=== PATIENT | male | born 1940 | race Caucasian/White ===

== ENCOUNTER 2024-02-23 00:20 | Observation (INO) ==
[2024-02-23] MEDS: SODIUM CHLORIDE 0.9% 1,000 ML IV ONE ×2 (00:33→03:33)
--- NOTE | 2024-02-23 00:34 | Emergency Department Note ---
Impression & Plan Chest pain, Acute hyponatremia, Leukocytosis ED Provider Note NAME: AISSATOU SOTO AGE: 83 SEX: M : 1940 ARRIVES VIA: Ambulance INFORMANT: Patient ED PROVIDER(S): Chano Perez DO CHIEF COMPLAINT: Chest pain HPI: Patient is an 83-year-old male who presents to the ER for precordial chest pain that radiates to the right arm. Started about an hour to an hour and a half ago. He was given aspirin and nitro prior to arrival by EMS and the pain has improved. No longer has any arm pain. Does have a history of diabetes and hypertension. No dysuria, urgency, or frequency. No other exacerbating or remitting factors. ADDITIONAL HISTORY OBTAINED: Per HPI Chronic Medical/Social Conditions Affecting Care: Per HPI PAST MEDICAL HISTORY:See Below PAST SURGICAL HISTORY:See Below FAMILY HISTORY:See Below SOCIAL HISTORY:See Below HOME MEDICATIONS:See Below ALLERGIES:See Below VITALS:See Below PHYSICAL EXAMINATION: GENERAL: Sitting up in bed, alert, well appearing, well nourished, no distress, non-toxic EYE EXAM: normal conjunctiva. OROPHARYNX: no exudate, no erythema, lips, buccal mucosa, and tongue normal and mucous membranes are moist NECK: supple, no nuchal rigidity, no adenopathy, non-tender LUNGS: Clear to auscultation. Normal chest wall mechanics HEART: no murmurs, S1 normal and S2 normal ABDOMEN: abdomen soft, non-tender, normo-active bowel sounds, no masses, no rebound or guarding. BACK: Back is symmetrical on inspection and there is no deformity, no midline tenderness, no CVA tenderness. SKIN: no rashes and no bruising UPPER EXTREMITIES: upper extremities are grossly normal. LOWER EXTREMITIES: No pitting edema. NEURO EXAM: Normal sensorium, cranial nerves II-XII grossly intact, normal speech, no gross weakness of arms, no gross weakness of legs. MEDICAL DECISION MAKING: Patient is an 83-year-old male who to the ER for the above-stated complaint. IV was established and blood work is obtained. Labs show mild leukocytosis of 11,000. No significant anemia. BMP with mild hyponatremia 131. Glucose was mildly elevated. LFTs bilirubin was unremarkable. Lipase was normal. EKG was nondiagnostic. CT of the chest shows atelectasis versus consolidation. Pulse ox ranged from 89 to 92%. He was given IV antibiotics. Updated bedside. No upper respiratory symptoms. Did discuss case with the hospitalist for further evaluation management treatment. Consults/Care Managements Discussions: Per MDM Triage Nursing notes reviewed. Limited review of prior medical records performed Vital Signs: reviewed and remarkable for hypoxic and tachy Differential diagnosis: Cardiac ischemia, aortic dissection, pulmonary embolism, pneumothorax, pneumonia, pericarditis, myocarditis, esophageal rupture, GERD, cholecystitis, pancreatitis, musculoskeletal, as well as other pathologies. ER treatment provided: See below Diagnostics interpreted by me include EKG and cardiac monitoring as listed below: -Cardiac Monitoring: An order was placed for continuous cardiac monitoring. The monitor shows a rate of 110 with sinus rhythm. -ECG: Sinus tachycardia rate of 117 Normal axis No PVCs Nonspecific ST wave changes in the lateral and inferior leads QTc 426 -Laboratory studies:Interpreted by me as stated above in MDM and shown below. Imaging studies: Xrays: As interpreted by me: None CTs show: CT angio the chest per my preliminary interpretation showed opacities at the bases bilaterally CT angio the chest per radiology shows no PEs and Consolidation versus atelectasis Procedures: None Critical Care: None Past Med/Surg History Problem List (Updated 02/23/24 @ 02:53 by Chano Perez DO) Leukocytosis (Acute) Acute hyponatremia (Acute) Chest pain (Acute) Social History Smoking Status: Current some day smoker Tobacco Type: Pipe Preferred Language: Belarusian Feels Safe at Home: Yes Allergies Allergies Allergy/AdvReac Type Severity Reaction Status Date / Time Penicillins Allergy Mild Verified 04/15/17 13:03 Home Meds Home Medications Medication Instructions Recorded Confirmed hydrochlorothiazide 12.5 mg tablet 12.5 mg PO DAILY 02/23/24 02/23/24 losartan 25 mg tablet 25 mg PO DAILY 02/23/24 02/23/24 metformin 500 mg tablet,extended 500 mg PO DAILY 02/23/24 02/23/24 release 24 hr omeprazole 40 mg capsule,delayed 40 mg PO DAILY 02/23/24 02/23/24 release Results & Data (ED) Vital Signs Vital Signs - 24 hr 02/23/24 00:09 02/23/24 00:26 02/23/24 00:27 Temperature Temperature Source Pulse Rate 97 H 117 H Pulse Rate [Apical] Pulse Rate from SpO2 Sensor 117 H Pulse Rhythm Pulse Rhythm [Apical] Pulse Strength Pulse Strength [Apical] Respiratory Rate 28 H Respiratory Effort / Characteristics Respiratory Depth Respiratory Pattern Blood Pressure 154/96 H Blood Pressure [Right Arm] Blood Pressure Mean 105 Blood Pressure Mean [Right Arm] Blood Pressure Position Blood Pressure Position [Right Arm] Pulse Oximetry 90 Oxygen Delivery Method Oxygen Flow Rate Sepsis Recent Fever Within 48 Hours Sepsis New/Unexplained Change in Mental Status Sepsis Action Taken by Nursing 02/23/24 00:28 02/23/24 00:28 02/23/24 00:30 Temperature 36.5 C Temperature Source Oral Pulse Rate 116 H Pulse Rate [Apical] 118 H Pulse Rate from SpO2 Sensor Pulse Rhythm Regular Pulse Rhythm [Apical] Regular Pulse Strength Pulse Strength [Apical] Normal Respiratory Rate 20 20 Respiratory Effort / Characteristics Non-Labored Spontaneous Respiratory Depth Normal Respiratory Pattern Regular Blood Pressure 134/95 Blood Pressure [Right Arm] 154/96 H Blood Pressure Mean 105 Blood Pressure Mean [Right Arm] 115 Blood Pressure Position Blood Pressure Position [Right Arm] Lying Pulse Oximetry 90 90 Oxygen Delivery Method Room Air Room Air Oxygen Flow Rate 0 Sepsis Recent Fever Within 48 Hours Sepsis New/Unexplained Change in Mental Status Sepsis Action Taken by Nursing 02/23/24 00:30 02/23/24 00:39 02/23/24 01:00 Temperature Temperature Source Pulse Rate 113 H Pulse Rate [Apical] Pulse Rate from SpO2 Sensor 109 H Pulse Rhythm Pulse Rhythm [Apical] Pulse Strength Pulse Strength [Apical] Respiratory Rate 26 H Respiratory Effort / Characteristics Respiratory Depth Respiratory Pattern Blood Pressure 134/95 Blood Pressure [Right Arm] Blood Pressure Mean 105 Blood Pressure Mean [Right Arm] Blood Pressure Position Blood Pressure Position [Right Arm] Pulse Oximetry 91 95 Oxygen Delivery Method Room Air Oxygen Flow Rate 0 Sepsis Recent Fever Within 48 Hours Sepsis New/Unexplained Change in Mental Status Sepsis Action Taken by Nursing 02/23/24 01:00 02/23/24 01:00 02/23/24 01:57 Temperature 36.5 C Temperature Source Oral Pulse Rate 108 H Pulse Rate [Apical] Pulse Rate from SpO2 Sensor Pulse Rhythm Regular Pulse Rhythm [Apical] Pulse Strength Normal Pulse Strength [Apical] Respiratory Rate 20 Respiratory Effort / Characteristics Non-Labored Spontaneous Respiratory Depth Normal Respiratory Pattern Regular Blood Pressure 137/84 137/84 137/84 Blood Pressure [Right Arm] Blood Pressure Mean 99 99 101 Blood Pressure Mean [Right Arm] Blood Pressure Position Lying Blood Pressure Position [Right Arm] Pulse Oximetry 95 Oxygen Delivery Method Room Air Oxygen Flow Rate Sepsis Recent Fever Within 48 Hours No Sepsis New/Unexplained Change in Mental Status No Sepsis Action Taken by Nursing No Action Required 02/23/24 02:36 02/23/24 03:06 02/23/24 03:46 Temperature Temperature Source Pulse Rate 105 H 100 H Pulse Rate [Apical] 104 H Pulse Rate from SpO2 Sensor 103 H 100 H Pulse Rhythm Pulse Rhythm [Apical] Regular Pulse Strength Pulse Strength [Apical] Normal Respiratory Rate 22 14 20 Respiratory Effort / Characteristics Non-Labored Spontaneous Respiratory Depth Normal Respiratory Pattern Regular Blood Pressure 175/104 H 155/92 H Blood Pressure [Right Arm] 157/110 H Blood Pressure Mean 127 113 Blood Pressure Mean [Right Arm] 125 Blood Pressure Position Blood Pressure Position [Right Arm] Pulse Oximetry 95 96 93 Oxygen Delivery Method Room Air Oxygen Flow Rate Sepsis Recent Fever Within 48 Hours Sepsis New/Unexplained Change in Mental Status Sepsis Action Taken by Nursing Laboratory Data 02/23/24 02:05 02/23/24 02:05 Lab Results 02/23/24 02/23/24 Range/Units 00:54 02:05 WBC 11.20 H (4.8-10.8) K/ul RBC 4.76 (4.70-6.10) M/uL Hgb 14.4 (14.0-18.0) g/dl POC Hgb 15.6 (14.0-18.0) g/dl Hct 41.8 L (42.0-52.0) % POC Hct 46 (42-52) % MCV 87.8 (80.0-100.0) fL MCH 30.3 (25.0-34.0) pg MCHC 34.4 (32.0-36.0) g/dL RDW Std Deviation 40.4 (36.4-46.3) fL RDW Coeff of Jose 12.5 (11.5-14.5) % Plt Count 233 (130-400) K/uL MPV 9.9 (9.4-12.4) fL Immature Gran % (Auto) 0.4 % Neut % (Auto) 82.9 % Lymph % (Auto) 10.3 % [place] % (Auto) 5.1 % Eos % (Auto) 0.7 % Baso % (Auto) 0.6 % Neut # (Auto) 9.28 H (1.40-6.50) K/uL Lymph # (Auto) 1.15 L (1.20-3.40) K/uL [place] # (Auto) 0.57 (0.11-0.59) K/uL Eos # (Auto) 0.08 (0.00-0.50) K/uL Baso # (Auto) 0.07 (0.00-0.20) K/uL Immature Gran # (Auto) 0.05 (0.01-0.20) K/uL APTT 24 (21-31) Seconds PTT Ratio 0.9 POC Sodium 134 L (135-144) mmol/L Sodium 131 L (136-145) mmol/L POC Potassium 4.1 (3.3-5.0) mmol/L Potassium 4.2 (3.5-5.1) mmol/L POC Chloride 100 L (101-112) mmol/L Chloride 100 (98-107) mmol/L Carbon Dioxide 23 (21-32) mmol/L POC Total CO2 22 L (24-31) mmol/L Anion Gap 8 (3-11) POC Anion Gap 16.0 (16-25) mmol/L POC BUN 10 (7-18) mg/dl BUN 11 (6-23) mg/dl Creatinine 0.89 (0.6-1.4) mg/dl POC Creatinine 0.9 (0.6-1.3) mg/dl Est Cr Clr Drug Dosing 67.2 ml/min eGFR 86.09 BUN/Creatinine Ratio 12.4 (10-20) Glucose 152 H (70-99(Fasting)) mg/dl POC Glucose (other) 162 H (70-99) mg/dl Calcium 9.2 (8.6-10.3) mg/dl POC Ioniz Calcium Natan 1.27 (1.12-1.32) mmol/l Magnesium 1.9 (1.7-2.4) mg/dl Total Bilirubin 0.4 (0.2-1.0) mg/dl AST 14 (13-39) U/L ALT 14 (7-52) U/L Alkaline Phosphatase 55 (34-104) U/L Troponin I High Sens 7.1 (0-20) pg/ml Total Protein 6.1 (6.0-8.3) gm/dl Albumin 3.7 (3.4-5.0) gm/dl Globulin 2.4 L (2.5-4.0) gm/dl Albumin/Globulin Ratio 1.5 (0.9-2) Lipase 29 (11-82) U/L Administered Medications Azithromycin 500 mg/ Dextrose 255 mls @ 125 mls/hr IV NOW ONE Stop: 02/23/24 04:50 Last Admin: 02/23/24 03:33 Dose: 125 mls/hr Documented By: GANESH Sodium Chloride (Nss) 1,000 mls @ 80 mls/hr IV .[id number] ONE Stop: 02/23/24 15:23 Last Admin: 02/23/24 03:33 Dose: 80 mls/hr Documented By: GANESH Discontinued Medications Al Hydrox/Mg Hydrox/Simethicone (Aluminum/Magnesium Susp 30 Ml Udc) 30 ml PO NOW STA Stop: 02/23/24 02:48 Last Admin: 02/23/24 02:59 Dose: 30 ml Documented By: GANESH Sodium Chloride (Nss) 1,000 mls @ 999 mls/hr IV .[id number] ONE Stop: 02/23/24 01:32 Last Infusion: 02/23/24 02:45 Dose: Infused Documented By: Admin: 02/23/24 00:33 Dose: 999 mls/hr Documented By: GANESH Sodium Chloride (Nss) 500 mls @ 999 mls/hr IV .Q31M ONE Stop: 02/23/24 02:32 Last Admin: 02/23/24 02:45 Dose: 999 mls/hr Documented By: GANESH Ceftriaxone Sodium (Rocephin) 2,000 mg in 50 mls @ 100 mls/hr IV NOW STA Stop: 02/23/24 03:17 Last Admin: 02/23/24 02:59 Dose: 100 mls/hr Documented By: GANESH Ioversol (Optiray 320 125ml) 125 ml IV ONCE ONE Stop: 02/23/24 01:33 Last Admin: 02/23/24 01:32 Dose: 118 ml Documented By: LOU Morphine Sulfate (Morphine Sulfate 4 Mg/Ml 1 Ml Carp\Vial) 4 mg IV NOW STA Stop: 02/23/24 02:19 Last Admin: 02/23/24 02:44 Dose: 4 mg Documented By: GANESH Nitroglycerin (Nitroglycerin Sl 0.4 Mg/Tab Tab) 0.4 mg SL NOW STA Stop: 02/23/24 03:28 Last Admin: 02/23/24 03:44 Dose: 0.4 mg Documented By: GANESH Ondansetron HCl (Ondansetron Inj 2 Mg/Ml 2 Ml Vial) 4 mg IV NOW STA Stop: 02/23/24 02:51 Last Admin: 02/23/24 02:59 Dose: 4 mg Documented By: GANESH Imaging Data Radiologist's Impression: Chest CTA 02/23/24 00:34 Exam(s): CTA CHEST IV Amt: 118 ML OPTIRAY 320 EXAM: CT Angiography Chest With Intravenous Contrast CLINICAL HISTORY: Reason for exam: PE. TECHNIQUE: Axial computed tomographic angiography images of the chest with intravenous contrast. Automated exposure control was utilized for the study. A dose lowering technique was utilized adhering to the principles of ALARA. MIP reconstructed images were created and reviewed. COMPARISON: No relevant prior studies available. FINDINGS: Pulmonary arteries: Unremarkable. No pulmonary embolism. Aorta: No acute findings. No thoracic aortic aneurysm. Lungs: There are dependent lower lobe groundglass opacities suggestive of probable atelectasis. No pleural fluid or pneumothorax identified. There is a minimal mosaic attenuation of the upper lobes suggestive of mild air trapping. Pleural space: See above. Heart: Unremarkable. No cardiomegaly. No significant pericardial effusion. No evidence of RV dysfunction. Mediastinum: There is a small to moderate hiatal hernia. There is a small amount of distal esophageal fluid consistent with gastroesophageal reflux. Bones/joints: No acute fracture. No dislocation. Soft tissues: Unremarkable. Lymph nodes: Unremarkable. No pulmonary mass or suspicious nodules are noted. No significant lymphadenopathy identified. IMPRESSION: 1. No pulmonary artery embolism or thoracic aortic aneurysm identified. 2. There is mild dependent lower lobe groundglass compressive atelectasis/consolidation. There is suggestion of mild upper lobe air trapping. Clinical correlation and follow-up recommended. 3. Small to moderate hiatal hernia and distal esophageal fluid consistent with gastroesophageal reflux. Electronically signed by: Jackson Chacon MD 02/23/24 02:16 AM Discharge Plan Visit Data Chief Complaint: Chest Pain Stated Complaint: CHEST PAIN ED Provider: Chano Perez Discharge Problem: Chest pain, Acute hyponatremia, Leukocytosis Forms Stand Alone Forms: [facility] [employer] Prescriptions Prescriptions: No Action omeprazole 40 mg capsule,delayed release(DR/EC) 40 mg PO DAILY losartan 25 mg tablet 25 mg PO DAILY metformin 500 mg tablet extended release 24 hr 500 mg PO DAILY hydrochlorothiazide 12.5 mg tablet 12.5 mg PO DAILY Referrals Referrals: Suleiman Lucero MD [Hospitalist] - Discharge Problem: Chest pain Qualifiers: Chest pain type: unspecified Qualified Code(s): R07.9 - Chest pain, unspecified Leukocytosis Qualifiers: Leukocytosis type: unspecified Qualified Code(s): D72.829 - Elevated white blood cell count, unspecified
[2024-02-23 01:07] LABS: iSTAT Creatinine 0.9 mg/dl (0.6-1.3); iSTAT Hemoglobin 15.6 g/dl (14.0-18.0); iSTAT Ionized Calcium 1.27 mmol/l (1.12-1.32); iSTAT Potassium 4.1 mmol/L (3.3-5.0)
[2024-02-23] MEDS: OPTIRAY 320 125ml IV ONE (01:32)
--- NOTE | 2024-02-23 02:17 | CT Scan Report ---
Exam(s): CTA CHEST IV Amt: 118 ML OPTIRAY 320 EXAM: CT Angiography Chest With Intravenous Contrast CLINICAL HISTORY: Reason for exam: PE. TECHNIQUE: Axial computed tomographic angiography images of the chest with intravenous contrast. Automated exposure control was utilized for the study. A dose lowering technique was utilized adhering to the principles of ALARA. MIP reconstructed images were created and reviewed. COMPARISON: No relevant prior studies available. FINDINGS: Pulmonary arteries: Unremarkable. No pulmonary embolism. Aorta: No acute findings. No thoracic aortic aneurysm. Lungs: There are dependent lower lobe groundglass opacities suggestive of probable atelectasis. No pleural fluid or pneumothorax identified. There is a minimal mosaic attenuation of the upper lobes suggestive of mild air trapping. Pleural space: See above. Heart: Unremarkable. No cardiomegaly. No significant pericardial effusion. No evidence of RV dysfunction. Mediastinum: There is a small to moderate hiatal hernia. There is a small amount of distal esophageal fluid consistent with gastroesophageal reflux. Bones/joints: No acute fracture. No dislocation. Soft tissues: Unremarkable. Lymph nodes: Unremarkable. No pulmonary mass or suspicious nodules are noted. No significant lymphadenopathy identified. IMPRESSION: 1. No pulmonary artery embolism or thoracic aortic aneurysm identified. 2. There is mild dependent lower lobe groundglass compressive atelectasis/consolidation. There is suggestion of mild upper lobe air trapping. Clinical correlation and follow-up recommended. 3. Small to moderate hiatal hernia and distal esophageal fluid consistent with gastroesophageal reflux. Electronically signed by: Jackson Chacon MD 02/23/24 02:16 AM
[2024-02-23 02:27] LABS: Basophils # (auto) 0.07 K/uL (0.00-0.20); Basophils % (auto) 0.6 %; Eosinophils # (auto) 0.08 K/uL (0.00-0.50); Eosinophils % (auto) 0.7 %; Hematocrit (blood only) 41.8 % (42.0-52.0); Hemoglobin 14.4 g/dl (14.0-18.0); Immature Granulocytes # (auto) 0.05 K/uL (0.01-0.20); Immature Granulocytes % (auto) 0.4 %; Lymphocytes # (auto) 1.15 K/uL (1.20-3.40); Lymphocytes % (auto) 10.3 %; Mean Corpuscular Hemoglobin 30.3 pg (25.0-34.0); Mean Corpuscular Hgb Conc 34.4 g/dL (32.0-36.0); Mean Corpuscular Volume 87.8 fL (80.0-100.0); Mean Platelet Volume 9.9 fL (9.4-12.4); Monocytes # (auto) 0.57 K/uL (0.11-0.59); Monocytes % (auto) 5.1 %; Neutrophils # (auto) 9.28 K/uL (1.40-6.50); Neutrophils % (auto) 82.9 %; Platelet Count 233 K/uL (130-400); RDW Coefficient of Variation 12.5 % (11.5-14.5); RDW Standard Deviation 40.4 fL (36.4-46.3); Red Blood Count 4.76 M/uL (4.70-6.10)
[2024-02-23 02:41] LABS: Albumin Globulin Ratio 1.5 (0.9-2); Albumin Level 3.7 gm/dl (3.4-5.0); BUN Creatinine Ratio 12.4 (10-20); Bilirubin,Total 0.4 mg/dl (0.2-1.0); Calcium 9.2 mg/dl (8.6-10.3); Creatinine Clr Calc Pharmacy 67.2 ml/min; Globulin 2.4 gm/dl (2.5-4.0); Potassium 4.2 mmol/L (3.5-5.1); Total Protein 6.1 gm/dl (6.0-8.3)
[2024-02-23] MEDS: MoRPHine SULFATE 4 MG/ML 1 ML CARP\\VIAL IV STA (02:44)
[2024-02-23] MEDS: SODIUM CHLORIDE 0.9% 500 ML IV ONE (02:45)
[2024-02-23 02:48] LABS: Troponin I High Sensitivity 7.1 pg/ml (0-20)
[2024-02-23] MEDS: ALUMINUM/MAGNESIUM SUSP 30 ML UDC PO STA (02:59)
[2024-02-23] MEDS: ONDANSETRON INJ 2 MG/ML 2 ML VIAL IV STA (02:59)
[2024-02-23] MEDS: cefTRIAXone SODIUM 2,000 MG/50 ML BAG IV STA (02:59)
[2024-02-23 03:05] LABS: Partial Thromboplastin Ratio 0.9; Partial Thromboplastin Time 24 Seconds (21-31)
--- NOTE | 2024-02-23 03:29 | History & Physical Report ---
Date of Service February 23, 2024 Assessment & Plan (1) Chest pain: Plan: Somewhat atypical No relief with nitroglycerin given at the ER Possibly from uncontrolled hypertension Hyponatremia secondary to home diuretic Rx GERD, stable on home PPI DM2 on oral medication, well-controlled as of last outpatient hemoglobin A1c of 6.8 2020 anxiety/mood disorder, at baseline past tobacco abuse OBS PCU Baseline TTE Titrate home losartan Hold HCTZ ISS BG goal 1 10-1 40, carb count coverage, update hemoglobin A1c DVT prophylaxis. Lovenox subcu Full code Patient daughter requesting updates providers. Ms. Cherelle Pichardo, contact #[phone]. Text document was generated using [email or web address] voice recognition software. It may contain grammatical or spelling errors. Kindly contact undersigned for clarification of any documentation item in question. History of Present Illness Chief Complaint: Chest pain Primary Care Provider: Enrique Aleman MD History obtained from patient, family, and records. Medical history significant for hypertension, GERD, DM2 on oral medications, anxiety/mood disorder, migraine, past tobacco abuse. Last confinement 2011 for TIA symptoms attributed to migraine. Yesterday, patient noted substernal tightness with some radiation to the right arm. No unusual cough symptoms other than congestion symptoms from a few weeks ago. No unusual headache symptoms. No SOB. Different from reflux as per patient. Patient's family wondering about tick bites. Patient brought to ER by EMS. SBP 170s upon arrival at the ER. No relief with nitroglycerin administration at the ER. Medical History as above Surgical History : None Family History : Lung cancer, breast cancer Personal/Social history : Past tobacco abuse, no EtOH intake, retired from concrete work Allergies Allergy/AdvReac Type Severity Reaction Status Date / Time Penicillins Allergy Mild Verified 04/15/17 13:03 Home Medications Medication Instructions Recorded Confirmed Type hydrochlorothiazide 12.5 mg tablet 12.5 mg PO DAILY 02/23/24 02/23/24 History losartan 25 mg tablet 25 mg PO DAILY 02/23/24 02/23/24 History metformin 500 mg tablet,extended 500 mg PO DAILY 02/23/24 02/23/24 History release 24 hr omeprazole 40 mg capsule,delayed 40 mg PO DAILY 02/23/24 02/23/24 History release Past Med/Surg History Problem List (Updated 02/23/24 @ 02:53 by Chano Perez DO) Leukocytosis (Acute) Acute hyponatremia (Acute) Chest pain (Acute) Social History Smoking Status: Current some day smoker Tobacco Type: Pipe Preferred Language: Norwegian Feels Safe at Home: Yes Review of Systems Review of Systems: As per HPI, all other systems reviewed and negative Physical Exam Physical Exam: GENERAL: Slightly uncomfortable, hard of hearing, no respiratory distress SKIN: Normal color, warm HEENT: [place] palpebral conjunctivae, no ptosis, dry buccal mucosa NECK : Supple, no tenderness CHEST : CTA, no tenderness HEART : Tachycardic, no obvious murmurs ABDOMEN: Some distention, nontender EXTREMITIES : No LE swelling/tenderness, no other conspicuous deformities noted NEUROLOGIC : Coherent, no facial asymmetry, hard of hearing, no other gross focality Results & Data Results & Data Vital Signs (Past 12 Hours) Vital Signs Temp Pulse Pulse Resp BP BP Pulse Ox 02/23/24 03:06 100 H 14 155/92 H 96 02/23/24 02:36 105 H 22 175/104 H 95 02/23/24 01:57 36.5 C 108 H 20 137/84 95 02/23/24 01:00 137/84 02/23/24 01:00 137/84 02/23/24 01:00 95 02/23/24 00:39 113 H 26 H 91 02/23/24 00:30 134/95 02/23/24 00:30 134/95 02/23/24 00:28 116 H 20 90 02/23/24 00:28 36.5 C 118 H 20 154/96 H 90 02/23/24 00:27 117 H 28 H 90 02/23/24 00:26 154/96 H 02/23/24 00:09 97 H O2 Del Method O2 Flow Rate 02/23/24 03:06 02/23/24 02:36 02/23/24 01:57 Room Air 02/23/24 01:00 02/23/24 01:00 02/23/24 01:00 Room Air 0 02/23/24 00:39 02/23/24 00:30 02/23/24 00:30 02/23/24 00:28 Room Air 0 02/23/24 00:28 Room Air 02/23/24 00:27 02/23/24 00:26 02/23/24 00:09 Laboratory Results Laboratory Results WBC 11.20 K/ul (4.8-10.8) H 02/23/24 02:05 RBC 4.76 M/uL (4.70-6.10) 02/23/24 02:05 Hgb 14.4 g/dl (14.0-18.0) 02/23/24 02:05 POC Hgb 15.6 g/dl (14.0-18.0) 02/23/24 00:54 Hct 41.8 % (42.0-52.0) L 02/23/24 02:05 POC Hct 46 % (42-52) 02/23/24 00:54 MCV 87.8 fL (80.0-100.0) 02/23/24 02:05 MCH 30.3 pg (25.0-34.0) 02/23/24 02:05 MCHC 34.4 g/dL (32.0-36.0) 02/23/24 02:05 RDW Std Deviation 40.4 fL (36.4-46.3) 02/23/24 02:05 RDW Coeff of Jose 12.5 % (11.5-14.5) 02/23/24 02:05 Plt Count 233 K/uL (130-400) 02/23/24 02:05 MPV 9.9 fL (9.4-12.4) 02/23/24 02:05 Immature Gran % (Auto) 0.4 % 02/23/24 02:05 Neut % (Auto) 82.9 % 02/23/24 02:05 Lymph % (Auto) 10.3 % 02/23/24 02:05 Tift % (Auto) 5.1 % 02/23/24 02:05 Eos % (Auto) 0.7 % 02/23/24 02:05 Baso % (Auto) 0.6 % 02/23/24 02:05 Neut # (Auto) 9.28 K/uL (1.40-6.50) H 02/23/24 02:05 Lymph # (Auto) 1.15 K/uL (1.20-3.40) L 02/23/24 02:05 Tift # (Auto) 0.57 K/uL (0.11-0.59) 02/23/24 02:05 Eos # (Auto) 0.08 K/uL (0.00-0.50) 02/23/24 02:05 Baso # (Auto) 0.07 K/uL (0.00-0.20) 02/23/24 02:05 Immature Gran # (Auto) 0.05 K/uL (0.01-0.20) 02/23/24 02:05 APTT 24 Seconds (21-31) 02/23/24 02:05 PTT Ratio 0.9 02/23/24 02:05 POC Sodium 134 mmol/L (135-144) L 02/23/24 00:54 Sodium 131 mmol/L (136-145) L 02/23/24 02:05 POC Potassium 4.1 mmol/L (3.3-5.0) 02/23/24 00:54 Potassium 4.2 mmol/L (3.5-5.1) 02/23/24 02:05 POC Chloride 100 mmol/L (101-112) L 02/23/24 00:54 Chloride 100 mmol/L (98-107) 02/23/24 02:05 Carbon Dioxide 23 mmol/L (21-32) 02/23/24 02:05 POC Total CO2 22 mmol/L (24-31) L 02/23/24 00:54 Anion Gap 8 (3-11) 02/23/24 02:05 POC Anion Gap 16.0 mmol/L (16-25) 02/23/24 00:54 POC BUN 10 mg/dl (7-18) 02/23/24 00:54 BUN 11 mg/dl (6-23) 02/23/24 02:05 Creatinine 0.89 mg/dl (0.6-1.4) 02/23/24 02:05 POC Creatinine 0.9 mg/dl (0.6-1.3) 02/23/24 00:54 Est Cr Clr Drug Dosing 67.2 ml/min 02/23/24 02:05 eGFR 86.09 02/23/24 02:05 BUN/Creatinine Ratio 12.4 (10-20) 02/23/24 02:05 Glucose 152 mg/dl (70-99(Fasting)) H 02/23/24 02:05 POC Glucose (other) 162 mg/dl (70-99) H 02/23/24 00:54 Calcium 9.2 mg/dl (8.6-10.3) 02/23/24 02:05 POC Ioniz Calcium Natan 1.27 mmol/l (1.12-1.32) 02/23/24 00:54 Total Bilirubin 0.4 mg/dl (0.2-1.0) 02/23/24 02:05 AST 14 U/L (13-39) 02/23/24 02:05 ALT 14 U/L (7-52) 02/23/24 02:05 Alkaline Phosphatase 55 U/L (34-104) 02/23/24 02:05 Troponin I High Sens 7.1 pg/ml (0-20) 02/23/24 02:05 Total Protein 6.1 gm/dl (6.0-8.3) 02/23/24 02:05 Albumin 3.7 gm/dl (3.4-5.0) 02/23/24 02:05 Globulin 2.4 gm/dl (2.5-4.0) L 02/23/24 02:05 Albumin/Globulin Ratio 1.5 (0.9-2) 02/23/24 02:05 Lipase 29 U/L (11-82) 02/23/24 02:05 Impressions Chest CTA 02/23/24 00:34 Exam(s): CTA CHEST IV Amt: 118 ML OPTIRAY 320 EXAM: CT Angiography Chest With Intravenous Contrast CLINICAL HISTORY: Reason for exam: PE. TECHNIQUE: Axial computed tomographic angiography images of the chest with intravenous contrast. Automated exposure control was utilized for the study. A dose lowering technique was utilized adhering to the principles of ALARA. MIP reconstructed images were created and reviewed. COMPARISON: No relevant prior studies available. FINDINGS: Pulmonary arteries: Unremarkable. No pulmonary embolism. Aorta: No acute findings. No thoracic aortic aneurysm. Lungs: There are dependent lower lobe groundglass opacities suggestive of probable atelectasis. No pleural fluid or pneumothorax identified. There is a minimal mosaic attenuation of the upper lobes suggestive of mild air trapping. Pleural space: See above. Heart: Unremarkable. No cardiomegaly. No significant pericardial effusion. No evidence of RV dysfunction. Mediastinum: There is a small to moderate hiatal hernia. There is a small amount of distal esophageal fluid consistent with gastroesophageal reflux. Bones/joints: No acute fracture. No dislocation. Soft tissues: Unremarkable. Lymph nodes: Unremarkable. No pulmonary mass or suspicious nodules are noted. No significant lymphadenopathy identified. IMPRESSION: 1. No pulmonary artery embolism or thoracic aortic aneurysm identified. 2. There is mild dependent lower lobe groundglass compressive atelectasis/consolidation. There is suggestion of mild upper lobe air trapping. Clinical correlation and follow-up recommended. 3. Small to moderate hiatal hernia and distal esophageal fluid consistent with gastroesophageal reflux. Electronically signed by: Jackson Chacon MD 02/23/24 02:16 AM Diagnostic Findings EKG as per my interpretation : rate 120, sinus tachycardia, normal axis, nonspecific T wave abnormalities (1) Chest pain Chest pain type: unspecified Qualified Code(s): R07.9 - Chest pain, unspecified
[2024-02-23] MEDS: AZITHROMYCIN 500 MG in DEXTROSE 5% 250 ML IV ONE (03:33)
[2024-02-23] MEDS ORDERED: DEXTROSE 50% 50 ML SYRINGE IV PRN (03:35)
[2024-02-23] MEDS ORDERED: CARBOHYDRATES FOR HYPOGLYCEMIA PO PRN (03:35)
[2024-02-23] MEDS ORDERED: GLUCOSE 10 TAB/TUBE PO PRN (03:35)
[2024-02-23] MEDS ORDERED: GLUCAGON FOR INJ 1 MG VIAL SQ PRN (03:35)
[2024-02-23] MEDS ORDERED: GLUCOSE 40% GEL 15 GM TUBE PO PRN (03:35)
[2024-02-23] MEDS ORDERED: oxyCODONE HCL IR 5 MG TAB (IMMEDIATE RELEASE) PO PRN (03:36)
[2024-02-23] MEDS ORDERED: MoRPHine SULFATE 2 MG/ML CARP IV PRN (03:36)
[2024-02-23] MEDS: NITROGLYCERIN SL 0.4 MG/TAB TAB SL STA (03:44)
[2024-02-23 03:53] LABS: Magnesium 1.9 mg/dl (1.7-2.4)
[2024-02-23 04:22] LABS: D Dimer 560 ug/L FEU (0-500)
[2024-02-23 04:29] LABS: C Reactive Protein < 0.50 mg/dl (0-0.5)
[2024-02-23 04:36] LABS: Troponin I High Sensitivity 10.7 pg/ml (0-20)
[2024-02-23 04:45] LABS: Thyroid Stimulating Hormone 3.308 uIu/ml (0.300-4.500)
[2024-02-23] MEDS: PROMETHAZINE 6.25 MG/50.25 ML BAG IV PRN (04:49)
[2024-02-23] MEDS: oxyCODONE HCL IR 5 MG TAB (IMMEDIATE RELEASE) PO STA (05:04)
[2024-02-23] MEDS: INSULIN ASPART PER UNIT CHARGE SC SCH (05:47)
[2024-02-23] MEDS: LOSARTAN POTASSIUM 50 MG TAB PO STA (05:49)
--- NOTE | 2024-02-23 07:05 | XRay Report ---
XR chest 1V portable HISTORY: 83 years-old Male Chest pain, nonspecific COMPARISON: CTA chest of same day TECHNIQUE: AP view of the chest FINDINGS: Cardiac silhouette is normal. Small hiatal hernia. Emphysema with chronic interstitial coarsening. Mi ld patchy bibasilar opacities. No pneumothorax or pleural effusion. IMPRESSION: 1. Emphysema with chronic interstitial coarsening. 2. Mild bibasilar opacities favor atelectasis. A nonspecific pneumonitis could appear similarly. 3. Hiatal hernia. ACT 112: Negative or not required by law. The above report was generated using voice recognition software. It may contain grammatical, syntax o r spelling errors. Electronically signed by: Juan Pablo Osorio M.D. 02/23/2024 7:03 AM
[2024-02-23 07:12] LABS: Estimated Average Glucose 137 mg/dl; Hemoglobin A1C 6.4 % (4.5-5.6)
[2024-02-23] MEDS: PANTOprazole 40 MG TAB PO SCH (08:14)
[2024-02-23] MEDS: ENOXAPARIN INJ 30 MG/0.3 ML SYR SQ SCH (08:16)
[2024-02-23 08:42] LABS: Adenovirus PCR Not Detected (NotDetected); Bordetella parapertussis PCR Not Detected (NotDetected); Bordetella pertussis PCR Not Detected (NotDetected); Chlamydia pneumoniae PCR Not Detected (NotDetected); Coronavirus 229E PCR Not Detected (NotDetected); Coronavirus CoV-2 (COVID19)PCR Not Detected (NotDetected); Coronavirus HKU1 PCR Not Detected (NotDetected); Coronavirus NL63 PCR Not Detected (NotDetected); Coronavirus OC43PCR Not Detected (NotDetected); Human Metapneumovirus PCR Not Detected (NotDetected); Influenza A PCR Not Detected (NotDetected); Influenza B PCR Not Detected (NotDetected); Mycoplasma pneumoniae PCR Not Detected (NotDetected); Parainfluenza Virus 1 PCR Not Detected (NotDetected); Parainfluenza Virus 2 PCR Not Detected (NotDetected); Parainfluenza Virus 3 PCR Not Detected (NotDetected); Parainfluenza Virus 4 PCR Not Detected (NotDetected); Respiratory Syncytial VirusPCR Not Detected (NotDetected); Rhinovirus/Enterovirus PCR Not Detected (NotDetected)
[2024-02-23] MEDS ORDERED: LOSARTAN POTASSIUM 25 MG TAB PO SCH (09:00)
[2024-02-23] MEDS: ONDANSETRON INJ 2 MG/ML 2 ML VIAL ONE (09:56)
[2024-02-23] MEDS: ASPIRIN CHEW 324 MG ONE (09:56)
--- OUTSIDE RECORDS SUMMARY | 2024-02-23 10:42 | External Medical Summary | Summary of Care ---
Author Name Unknown Organization [facility] Address [address] [facility] [place] [address] Phone [phone] Care Team Providers Care Communication Specialist Name Role Phone Vasile Hillman MD Primary Care Provider [phone] Reason for Visit * Reason Onset Date Comments Medication Refill 09/23/2023 Encounter Details Date Type Department Care Team (Late st Contact Info) Description 09/23/[address] [facility] [address] [place] [address] Vasile Hillman MD [address] [place] [address] HTN, goal below 140/90 Allergies Active Allergy Reactions Criticality Noted Date Comments Penicillins Low 06/23/2006 Hives documented as of this encounter (statuses as of 09/24/2023) Medications Medication Sig Dispensed Refills Start Date End Date Status JULIO C LOW DOSE 81 MG PO TBEC one tab daily by mouth 0 Active Multiple Vitamins-Minerals (OCUVITE ADULT 50+) Capsule Take 1 Cap by mouth daily. 0 07/31/2016 Active Omeprazole 40 MG Oral Capsule Delayed Release (PriLOSEC)Indicati ons:Reflux esophagitis Take 1 Capsule by mouth in the morning. 90 Capsule 2 05/25/2023 Active RA Vitamin D-3 50 MCG (1999 UT) Oral Capsule (Cholecalciferol)I ndications:Vitamin D deficiency Take 1 Capsule by mouth in the morning. 90 Capsule 0 05/25/2023 Active metFORMIN HCl ER 500 MG Oral Tablet Extended Release 24 Hour (Glucophage XR)Indications:Typ e 2 diabetes mellitus with hemoglobin A1c goal of less than 8.0% (HCC) Take 1 Tablet by mouth in the morning. 30 Tablet 0 08/19/2023 Active hydroCHLOROthiazid e 12.5 MG Oral TabletIndications: HTN, goal below 140/90 Take 1 Tablet by mouth in the morning. 30 Tablet 1 09/23/2023 Active Losartan Potassium 25 MG Oral Tablet (Cozaar)Indication s:HTN, goal below 140/90 Take 1 Tablet by mouth in the morning. 30 Tablet 5 09/24/2023 Active Losartan Potassium 25 MG Oral Tablet (Cozaar)Indication s:HTN, goal below 140/90 Take 1 Tablet by mouth in the morning. 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 02/01/2017 Overview: Pt denies - declines meds Gastroesophageal reflux disease without esophagi tis Chronic neck pain documented as of this encounter (statuses as of 09/24/2023) Resolved Problems Problem Noted Date Diagnosed Date Resolved Date Chronic kidney disease, stage 3a 09/24/2020 04/11/2021 Overview: Per CKD protocol Hypercalcemia 09/23/2020 04/11/2021 Migraine variant 03/11/2015 06/07/2017 Generalized anxiety disorder 06/09/2012 06/21/2014 Cervicalgia 06/21/2014 documented as of this encounter (statuses as of 09/24/2023) Immunizations Name Administration Dates Next Due Pneumococcal Polysaccharide PPV23 (Pneumovax) 01/06/2008(Deferred: Patient Refused) TD - Tetanus/Diptheria (ADULT) 01/06/2008(Deferr ed: Patient Refused) documented as of this encounter Social History Tobacco Use Types Packs/Day Years Used Date Smoking Tobacco: Former Cigarettes Q uit: 05/17/1997 Smokeless Tobacco: Never Comments:quit 1997 Alcohol Use Standard Drinks/Week Comments No 0 (1 standard drink = 0.6 oz pur e alcohol) PHQ-2 Answer Date Recorded PHQ-2 Score 0 09/19/2018 Sex and Gender Information Value Date Recorded Sex Assigned at Not on file Gender Identity Not on file Sexual Orientation Not on file Job Start Date Occupation Industry Not on file Not on file Not on file documented as of this encounter Miscellaneous Notes * Telephone Encounter - Vasile Hillman MD - 09/24/2023 1:18 PM EDTSigned Prescriptions: Disp Refills Losartan Potassium 25 MG Oral Tablet (Coza*30 Tab*5 Sig: Take 1 Tablet by mouth in the morning. Authorizing Provider: VASILE HILLMAN * Telephone Encounter - Idalia Parker LPN - 09/24/2023 12:50 PM EDTPending Prescriptions: Disp Refills Losartan Potassium 25 MG Oral Tablet (Coza*30 Tab*5 Sig: Take 1 Tablet by mouth in the morning. * Telephone Encounter - Marely Mabry OSA - 09/23/2023 6:53 PM EDT Did you pend patient's preferred pharmacy and medication before forwarding?yes Pharmacy: [id number] [address] [facility] Pending Prescriptions: Disp Refills Losartan Potassium 25 MG Oral Tablet (Coz*30 Tab*1 Sig: Take 1 Tablet by mouth in the morning. Last Visit: 04/11/2021 (in office), Visit date not found (telemedicine) Next Visit: Visit date not found If no future appointments scheduled, and last appointment is greater than a year ago, please schedule patient for a follow-up appointment Last date the medication was ordered: 05.25.23 Is this request for a controlled substance?No Urine Drug Screen:No results found for this or any previous visit. Patient Phone Numbers Labs: Lab Results Component Value Date/Time CREAT 1.1 09/23/2020 12:14 PM CREAT 1.3 (H) 11/29/2019 03:20 PM POTASSIUM 4.1 09/23/2020 12:14 PM POTASSIUM 4.6 11/29/2019 03:20 PM TSH 3.39 09/03/2020 01:09 PM TSH 3.03 02/01/2017 08:52 AM LDLCALC 106 09/23/2020 12:14 PM LDLCALC 125 02/01/2017 08:52 AM LDLDIRECT NOT APPLICABLE 04/29/2012 11:00 AM ALT 16 04/29/2012 11:00 AM HGBA1C 6.8 (H) 09/03/2020 01:09 PM HGBA1C 5.9 02/01/2017 08:52 AM documented in this encounter Plan of Treatment Health Maintenance Due Date Last Done Comments Pneumococcal Vaccine: 65+ Years (1 of 2 - PCV) 1948 Albumin/Creatinine Ratio 1960 DTaP,Tdap,and Td Vaccines (1 - Tdap) 1961 Zoster Vaccines (1 of 2) 1992 HbA1c 03/05/2021 09/03/2020, 02/01/2017 Diabetic Eye Exam 09/23/2021 09/23/2020 GFR 09/23/2021 09/23/2020, 04/2 , 11/29/2019, Additional history exists Diabetic Foot Exam 10/07/2021 10/07/2020 COVID-19 Vaccine (1 - season) 2023 Influenza Vaccine (FLU shot) (Season Ended) 2024 GARDASIL-HPV IMMUNIZATION SERIES Aged Out No longer eligible based on patient's age to complete this topic Hepatitis B Aged Out No longer eligi ble based on patient's age to complete this topic MENINGOCOCCAL (MENACTRA/MENVEO) Aged Out No longer eligible based on patient's age to complete this topic documented as of this encounter Medical Devices Not on filedocumented as of this encounter Visit Diagnoses Diagnosis HTN, goal below 140/90 Unspecified essential hypertension documented in this encounter Care Teams Communication Specialist Relationship Specialty Start Date End Date Vasile Hillman MD [address] [place] [address] PCP - General Family Medicine 10/23/20 documented as of this encounter
--- OUTSIDE RECORDS SUMMARY | 2024-02-23 10:42 | External Medical Summary | Summary of Care ---
Author Name Unknown Organization [facility] Address [address] [facility] [place] [address] Phone [phone] Care Team Providers Care Engine Repairer Name Role Phone Enrique Aleman MD Primary Care Provider [phone] Reason for Visit * Reason Comments eRx-Medication Refill Encounter Details Date Type Department Care Team (Late st Contact Info) Description 11/17/2023 Refill Family Practice [facility] [address] [place] [address] Enrique Aleman MD [address] [facility] [place] [address] HTN, goal below 140/90 Allergies Active Allergy Reactions Criticality Noted Date Comments Penicillins Low 06/23/2006 Hives documented as of this encounter (statuses as of 11/24/2023) Medications Medication Sig Dispensed Refills Start Date End Date Status JULIO C LOW DOSE 81 MG PO TBEC one tab daily by mouth Active Multiple Vitamins-Minerals (OCUVITE ADULT 50+) Capsule Take 1 Cap by mouth daily. 07/31/2016 Active Omeprazole 40 MG Oral Capsule Delayed Release (PriLOSEC)Indicat ions:Reflux esophagitis Take 1 Capsule by mouth in the morning. 90 Capsule 2 05/25/2023 Active RA Vitamin D-3 50 MCG (1999 UT) Oral Capsule (Cholecalciferol) Indications:Vitam in D deficiency Take 1 Capsule by mouth in the morning. 90 Capsule 05/25/2023 Active metFORMIN HCl ER 500 MG Oral Tablet Extended Release 24 Hour (Glucophage XR)Indications:Ty pe 2 diabetes mellitus with hemoglobin A1c goal of less than 8.0% (HCC) Take 1 Tablet by mouth in the morning. 30 Tablet 08/19/2023 Active Losartan Potassium 25 MG Oral Tablet (Cozaar)Indicatio ns:HTN, goal below 140/90 Take 1 Tablet by mouth in the morning. 30 Tablet 5 09/24/2023 Active hydroCHLOROthiazi de 12.5 MG Oral TabletIndications :HTN, goal below 140/90 TAKE 1 TABLET BY MOUTH EVERY MORNING 90 Tablet 11/19/2023 Active hydroCHLOROthiazi de 12.5 MG Oral TabletIndications :HTN, goal below 140/90 Take 1 Tablet by mouth in the morning. 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..] encounter Miscellaneous Notes * Telephone Encounter - Isadora Barron OSA - 11/24/2023 9:42 AM EDT LM for pt to call back for laura ppt with Dr Aleman, next opening ok Letter also sent * Telephone Encounter - Isadora Barron OSA - 11/22/2023 1:32 PM EDT LM for pt to call back for laura ppt with Dr Aleman, next opening ok * Telephone Encounter - Grecia Umanzor MD - 11/19/2023 4:53 PM EDTSigned Prescriptions: Disp Refills hydroCHLOROthiazide 12.5 MG Oral Tablet 90 Tab*0 Sig: TAKE 1 TABLET BY MOUTH EVERY MORNINGAuthorizing Provider: GRECIA UMANZOR * Telephone Encounter - Grecia Umanzor MD - 11/19/2023 4:53 PM EDTSigned Prescriptions: Disp Refills hydroCHLOROthiazide 12.5 MG Oral Tablet 90 Tab*0 Sig: TAKE 1 TABLET BY MOUTH EVERY MORNINGAuthorizing Provider: GRECIA UMANZOR * Telephone Encounter - Grecia Umanzor MD - 11/19/2023 4:52 PM EDT Sched PCP appt * Telephone Encounter - [employer], [facility] - 11/19/2023 2:32 PM EDT Pending Prescriptions: Disp Refills hydroCHLOROthiazide 12.5 MG Oral Tablet 90 Tab*1 Sig: TAKE 1 TABLET BY MOUTH EVERY MORNING * Telephone Encounter - Maite Rowley OSA - 11/19/2023 12:16 PM EDT Patient calling in to check on the status of previous message. Patient Called within 48 hour timeframe. Reminded patient of 48 hour turn-around time. * Telephone Encounter - Veda Palmer LPN - 11/19/2023 10:51 AM EDTPending Prescriptions: Disp Refills hydroCHLOROthiazide 12.5 MG Oral Tablet 90 Tab*1 Sig: TAKE 1 TABLET BY MOUTH EVERY MORNING * Telephone Encounter - Mdaison Cisse RPh - 11/19/2023 10:39 AM EDTPending Prescriptions: Disp Refills hydroCHLOROthiazide 12.5 MG Oral Tablet 90 Tab*1 Sig: TAKE 1 TABLET BY MOUTH EVERY MORNING * Telephone Encounter - Madison Cisse RPh - 11/19/2023 10:37 AM EDT Requesting 180 day supply due to patient living far away. Updated prescription for provider approval. Refuses to schedule OV. Unable to authorize medication refills for pended medication(s) at this time. Part of the protocol criteria used for refill authorization was not satisfied. Please approve if appropriate. Thanks, Madison Cisse, PharmD Clinical Pharmacist [facility] 11/19/2023, 10:38 AM * Telephone Encounter - Tiny Hankins OSA - 11/17/2023 2:34 PM EDT Brennen calling to see if pt get get 180 day supply since he lives far away. Omeprazole 40 mg, hydroChlorothiazide 12.5 mg, Losartan 25 mg & Metformin 500 mg. Please advise. documented in this encounter Plan of Treatment Health Maintenance Due Date Last Done Comments Pneumococcal Vaccine: 65+ Years (1 of 2 - PCV) 1948 Albumin/Creatinine Ratio 1960 DTaP,Tdap,and Td Vaccines (1 - Tdap) 1961 Zoster Vaccines (1 of 2) 1992 Depression Monitoring 09/20/2019 09/19/2018 HbA1c 03/05/2021 09/03/2020, 02/01/2017 Diabetic Eye Exam 09/23/2021 09/23/2020 GFR 09/23/2021 09/23/2020, 04, 11/29/2019, Additional history exists Diabetic Foot Exam 10/07/2021 10/07/2020 COVID-19 Vaccine ( season) 2023 Influenza Vaccine (FLU shot) (#1) 2024 HPV (Gardasil) Vaccine Aged Out No lo nger eligible based on patient's age to complete this topic Hepatitis B Vaccine Aged Out No longe r eligible based on patient's age to complete this topic MENINGOCOCCAL (MENACTRA/MENVEO) Aged Out No longer eligible based on patient's age to complete this topic documented as of this encounter Medical Devices Not on filedocumented as of this encounter Visit Diagnoses Diagnosis HTN, goal below 140/90 Unspecified essential hypertension documented in this encounter Care Teams Engine Repairer Relationship Specialty Start Date End Date Enrique Aleman MD [address] [place] [address] PCP - General Family Medicine 10/23/20 documented as of this encounter
--- OUTSIDE RECORDS SUMMARY | 2024-02-23 10:42 | External Medical Summary | Summary of Care ---
Author Name Unknown Organization [facility] Address [address] [facility] [place] [address] Phone [phone] Care Team Providers Care Appointment Clerk Name Role Phone Enrique Aleman MD Primary Care Provider [phone] [phone] Reason for Visit * Reason Comments eRx-Medication Refill Encounter Details Date Type Department Care Team (Late st Contact Info) Description 11/17/2023 Refill Family Practice [facility] [address] [place] [address] Enrique Aleman MD 132 [facility] [place] [address] HTN, goal below 140/90 Allergies Active Allergy Reactions Criticality Noted Date Comments Penicillins Low 06/23/2006 Hives documented as of this encounter (statuses as of 11/22/2023) Medications Medication Sig Dispensed Refills Start Date [...] as of this encounter (statuses as of 11/22/2023) Active Problems Problem Noted Date Diagnosed Date Type 2 diabetes mellitus wit h hemoglobin A1c goal of less than 8.0% 09/23/2020 HTN, goal below 130/80 04/19/2017 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..] 1 TABLET BY MOUTH EVERY MORNINGAuthorizing Provider: GERCIA UMANZOR * Telephone Encounter - Grecia Umanzor MD - 11/19/2023 4:52 PM EDT Sched PCP appt * Telephone Encounter - Michelle, [facility] - 11/19/2023 2:32 PM [...] MORNING * Telephone Encounter - Madison Cisse [facility] - 11/19/2023 10:39 AM EDTPending Prescriptions: Disp [...] Eye Exam 09/23/2021 09/23/2020 GFR 09/23/2021 09/23/2020, 04/, 11/29/2019, Additional history exists Diabetic Foot Exam [...] hypertension documented in this encounter Care Teams Appointment Clerk Relationship Specialty Start Date End Date Enrique Aleman MD [address] [place] [address] PCP - General Family Medicine 10/23/20 documented as of this encounter
--- OUTSIDE RECORDS SUMMARY | 2024-02-23 10:42 | External Medical Summary | Summary of Care ---
Author Name Unknown Organization [facility] Address [address] [facility] [place] [address] Phone [phone] Care Team Providers Care Dishwashing Machine Operator Name Role Phone Vasile Hillman MD Primary Care Provider [phone] [phone] Reason for Visit * Reason Onset Date Comments Medication Refill 09/22/2023 Encounter Details Date Type Department Care Team (Late st Contact Info) Description 09/22/2023 Refill Family [facility] [address] [place] [address] Vasile Hillman MD [address] [facility] [place] [address] HTN, goal below 140/90 Allergies Active Allergy Reactions Criticality Noted Date Comments Penicillins Low 06/23/2006 Hives documented as of this encounter (statuses as of 09/23/2023) Medications Medication Sig Dispensed Refills Start Date End Date Status JULIO C LOW DOSE 81 MG PO TBEC one tab daily by mouth 0 Active Multiple Vitamins-Minerals (OCUVITE ADULT 50+) Capsule Take 1 Cap by mouth daily. 0 07/31/2016 Active Losartan Potassium 25 MG Oral Tablet (Cozaar)Indication s:HTN, goal below 140/90 Take 1 Tablet by mouth in the morning. 30 Tablet 1 05/25/2023 Active Omeprazole 40 MG Oral Capsule Delayed [...] the morning. 30 Tablet 1 09/23/2023 Active hydroCHLOROthiazid e 12.5 MG Oral Tablet (Hydrodiuril)Indic ations:HTN, goal below 140/90 Take 1 Tablet by mouth in the morning. 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..] Telephone Encounter - Vasile Hillman MD - 09/23/2023 5:29 PM EDTSigned Prescriptions: Disp Refills hydroCHLOROthiazide 12.5 MG Oral Tablet 30 Tab*1 Sig: Take 1 Tablet by mouth in the morning. Authorizing Provider: VASILE HILLMAN * Telephone Encounter - Trinity Lucero [facility] - 09/23/2023 4:14 PM EDTPending Prescriptions: Disp Refills hydroCHLOROthiazide 12.5 MG Oral Tablet 30 Tab*1 Sig: Take 1 Tablet by mouth in the morning. * Telephone Encounter - Trinity Lucero [facility] - 09/23/2023 4:13 PM EDT Unable to authorize medication refills for pended medication(s) at this time. Part of the protocol criteria used for refill authorization was not satisfied. Patient needs annual OV & labs. Pleaseapprove if appropriate. Per breeder service technician note: Pt due for OV, unwilling to schedule an appt today. Pt stated he will go when he goes. Pt's spouse also requesting some refills be called in if possible that way she is not calling every month. Did you pend patient's preferred pharmacy and medication before forwarding?yes Pharmacy: [id number] Pending Prescriptions: Disp Refills hydroCHLOROthiazide 12.5 MG Oral Tablet 30 Tab*1 Sig: Take 1 Tablet by mouth in the morning. Last Visit: 04/11/2021 (in office), Visit date not found (telemedicine) Next Visit: Visit date not found If no future appointments scheduled, and last appointment is greater than a year ago, please schedule patient for a follow-up appointment Last date the medication was ordered: 07/18/23 Is this request for a controlled substance?No [...] 01:09 PM HGBA1C 5.9 02/01/2017 08:52 AM * Telephone Encounter - Andrea Cedeno CPh[facility] - 09/22/2023 10:56 AM EDT Pt due for OV, unwilling to schedule an appt today. Pt stated he will go when he goes. Pt's spouse also requesting some refills be called in if possible that way she is not calling every month. Did you pend patient's preferred pharmacy and medication before forwarding?yes Pharmacy: [id number] Pending Prescriptions: Disp Refills hydroCHLOROthiazide 12.5 MG Oral Tablet 30 Tab*0 Sig: Take 1 Tablet by mouth in the morning. Last Visit: 04/11/2021 (in office), Visit date not found (telemedicine) Next Visit: Visit date not found If no future appointments scheduled, and last appointment is greater than a year ago, please schedule patient for a follow-up appointment Last date the medication was ordered: 07/18/2023 Is this request for a controlled substance?No [...] ( season) 2023 Influenza Vaccine (FLU shot) (Season [...] hypertension documented in this encounter Care Teams Dishwashing Machine Operator Relationship Specialty Start Date End Date Vasile Hillman MD [address] [facility] [place] [address] PCP - General Family Medicine 10/23/20 documented as of this encounter
--- OUTSIDE RECORDS SUMMARY | 2024-02-23 10:42 | External Medical Summary | Summary of Care ---
Author Name Unknown Organization [facility] Address [address] [facility] [place] [address] Phone [phone] Care Team Providers Care Artist Suspect Name Role Phone Enrique Aleman MD Primary Care Provider [phone] [phone] Reason for Visit * Reason Comments eRx-Medication Refill Encounter Details Date Type Department Care Team (Late st Contact Info) Description 11/17/2023 Refill Family Practice [facility] [address] [place] [address] Enrique Aleman MD 132 [facility] [place] [address] HTN, goal below 140/90 Allergies Active Allergy Reactions Criticality Noted Date Comments Penicillins Low 06/23/2006 Hives documented as of this encounter (statuses as of 11/19/2023) Medications Medication Sig Dispensed Refills Start Date [...] as of this encounter (statuses as of 11/19/2023) Active Problems Problem Noted Date Diagnosed Date Type 2 diabetes mellitus wit h hemoglobin A1c goal of less than 8.0% 09/23/2020 HTN, goal below 130/80 04/19/2017 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..] encounter Miscellaneous Notes * Telephone Encounter - Grecia Umanzor MD [...] Sched PCP appt * Telephone Encounter - Interface, E-Rx Ss Inbound - 11/19/2023 2:32 PM [...] Encounter - Madison Cisse [facility] - 11/19/2023 10:39 AM EDTPending [...] Foot Exam 10/07/2021 10/07/2020 COVID-19 Vaccine ( - season) 2023 Influenza Vaccine (FLU shot) (#1) [...] hypertension documented in this encounter Care Teams Artist Suspect Relationship Specialty Start Date End Date Enrique Aleman MD 132 [facility] [place] [address] PCP - General Family Medicine 10/23/20 documented as of this encounter
--- OUTSIDE RECORDS SUMMARY | 2024-02-23 10:42 | External Medical Summary | Summary of Care ---
Author Name Unknown Organization [facility] Address [address] [facility] [place] [address] Phone [phone] Care Team Providers Care Manager Academic Name Role Phone Vasile Hillman MD Primary Care Provider [phone] [phone] Reason for Visit * Reason Onset Date Comments Medication Refill 12/09/2023 Encounter Details Date Type Department Care Team (Late st Contact Info) Description 12/09/[address] [facility] [address] [place] [address] Vasile Hillman MD [address] [place] [address] HTN, goal below 140/90; Type 2 diabetes mellitus with hemoglobin A1c goal of less than 8.0% ([facility]) Allergies Active Allergy Reactions Criticality Noted Date Comments Penicillins Low 06/23/2006 Hives documented as of this encounter (statuses as of 12/09/2023) Medications Medication Sig Dispensed Refills Start Date [...] 05/25/2023 Active RA Vitamin D-3 50 MCG (1999) Oral Capsule (Cholecalciferol)I ndications:Vitamin D deficiency Take 1 Capsule by mouth in the morning. 90 Capsule 05/25/2023 Active Losartan Potassium 25 MG Oral Tablet (Cozaar)Indication s:HTN, goal below 140/90 Take 1 Tablet by mouth in the morning. 30 Tablet 5 09/24/2023 Active hydroCHLOROthiazid e 12.5 MG Oral TabletIndications: HTN, goal below 140/90 TAKE 1 TABLET BY MOUTH EVERY MORNING 90 Tablet 11/19/2023 Active metFORMIN HCl ER 500 MG Oral Tablet Extended Release 24 Hour (Glucophage XR)Indications:Typ e 2 diabetes mellitus with hemoglobin A1c goal of less than 8.0% (HCC) Take 1 Tablet by mouth in the morning. 30 Tablet 12/09/2023 Active metFORMIN HCl ER 500 MG Oral Tablet Extended Release 24 Hour (Glucophage XR)Indications:Typ e 2 diabetes mellitus with hemoglobin A1c goal of less than 8.0% (HCC) Take 1 Tablet by mouth in the morning. 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..] Telephone Encounter - Vasile Hillman MD - 12/09/2023 2:14 PM EDTSigned Prescriptions: Disp Refills metFORMIN HCl ER 500 MG Oral Tablet Extend*30 Tab*0 Sig: Take 1 Tablet by mouth in the morning. Authorizing Provider: VASILE HILLMAN Refused Prescriptions: Disp Refills Losartan Potassium 25 MG Oral Tablet (Coza*90 Tab*3 Sig: Take 1 Tablet by mouth in the morning. Refused By: JOSELYN COOMBS Reason fo r Refusal: Appt. Required, please call patient * Telephone Encounter - Joselyn Coombs [facility] - 12/09/2023 1:50 PM EDTPending Prescriptions: Disp Refills metFORMIN HCl ER 500 MG Oral Tablet Extend*30 Tab*0 Sig: Take 1 Tablet by mouth in the morning. Refused Prescriptions: Disp Refills Losartan Potassium 25 MG Oral Tablet (Coza*90 Tab*3 Sig: Take 1 Tablet by mouth in the morning. Refused By: JOSELYN COOMBS Reason for Refusal: Appt. Required, please call patient * Telephone Encounter - Joselyn Coombs [facility] - 12/09/2023 1:49 PM EDT Unable to authorize medication refills for pended medication(s) at this time. Part of the protocol criteria used for refill authorization was not satisfied. Patient needs OV and labs within last year. Please approve if appropriate. Last OV: 04/11/2021 (in office), Visit date not found (telemedicine) Last Labs completed 09/2020 Thank you, Joselyn Coombs [facility] Clinical Pharmacist [facility] ([facility]) 12/09/23 1:49 PM [phone] * Telephone Encounter - Juan Ramsay, cow tender - 12/09/2023 11:36 AM EDT Pharmacy is requesting a 90-day supply, pre-edited RXs as such. Please review and approve if appropriate. Pending Prescriptions: Disp Refills Losartan Potassium 25 MG Oral Tablet (Coz*90 Tab*3 Sig: Take 1 Tablet by mouth in the morning. metFORMIN HCl ER 500 MG Oral Tablet Exten*90 Tab*3 Sig: Take 1 Tablet by mouth in the morning. Last Visit: 04/11/2021 (in office), Visit date not found (telemedicine) Visit date not found If no future appointments scheduled, and last appointment is greater than a year ago, please schedule patient for an appointment Last date the medication was ordered: 09/24/2023,08/19/2023 Patient Phone Numbers Labs: Lab Results Component [...] HTN, goal below 140/90 Unspecified essential hypertension Type 2 diabetes mellitus with hemoglobin A1c goal of less than 8.0% (HCC) documented in this encounter Care Teams Manager Academic Relationship Specialty Start Date End Date Vasile Hillman MD [address] [place] [address] PCP - General Family Medicine 10/23/20 documented as of this encounter
--- OUTSIDE RECORDS SUMMARY | 2024-02-23 10:42 | External Medical Summary | Summary of Care ---
Author Name Unknown Organization [facility] Address [address] [facility] [place] [address] Phone [phone] Care Team Providers Care Technical Illustrations Map Inker Name Role Phone Vasile Hillman MD Primary Care Provider [phone] [phone] Reason for Visit * Reason Comments eRx-Medication Refill Encounter Details Date Type Department Care Team (Late st Contact Info) Description 01/25/[address] [facility] [address] [place] [address] Vasile Hillman MD 132 [facility] [place] [address] Type 2 diabetes mellitus with hemoglobin A1c goal of less than 8.0% ([facility]) Allergies Active Allergy Reactions Criticality Noted Date Comments Penicillins Low 06/23/2006 Hives documented as of this encounter (statuses as of 01/27/2024) Medications Medication Sig Dispensed Refills Start Date [...] A1c goal of less than 8.0% (HCC) TAKE 1 TABLET BY MOUTH IN THE MORNING. NEEDS OFFICE VISIT AND LABS 30 Tablet 01/27/2024 Active metFORMIN HCl ER 500 MG Oral Tablet Extended Release 24 Hour (Glucophage XR)Indications:Ty pe 2 diabetes mellitus with hemoglobin A1c goal of less than 8.0% (HCC) Take 1 Tablet by mouth in the morning. 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..] Telephone Encounter - Vasile Hillman MD - 01/27/2024 3:37 PM EDTSigned Prescriptions: Disp Refills metFORMIN HCl ER 500 MG Oral Tablet Extend*30 Tab*0 Sig: TAKE 1 TABLET BY MOUTH IN THE MORNING. NEEDS OFFICE VISIT AND LABS Authorizing Provider: VASILE HILLMAN * Telephone Encounter - Ana Castillo [facility] - 01/27/2024 10:44 AM EDTPending Prescriptions: Disp Refills metFORMIN HCl ER 500 MG Oral Tablet Extend*30 Tab*0 Sig: TAKE 1 TABLET BY MOUTH IN THE MORNING. NEEDS OFFICE VISIT AND LABS * Telephone Encounter - Ana Castillo [facility] - 01/27/2024 10:43 AM EDT Unable to authorize medication refills at this time. Part of the criteria used for refill authorization was not satisfied. Patient needs current well office visit and labs. Please approve if appropriate. Pending Prescriptions: Disp Refills metFORMIN HCl ER 500 MG Oral Tablet Exten*30 Tab*0 Sig: TAKE 1 TABLET BY MOUTH IN THE MORNING. NEEDS OFFICE VISIT AND LABS Last Visit: 04/11/2021 (in office), Visit date not found (telemedicine) Next Visit: Visit date not found If no future appointments scheduled, and last appointment is greater than a year ago, please schedule patient for a follow-up appointment Last date the medication was ordered: 12/09/23 Pharmacy: [id number] Is this request for a controlled substance? No Urine Drug Screen:No results found for this or any previous visit. Patient Phone Numbers Labs: Lab Results Component Value Date/Time CREAT 1.1 09/23/2020 12:14 PM CREAT 1.3 (H) 11/29/2019 03:20 PM POTASSIUM 4.1 09/23/2020 12:14 PM POTASSIUM 4.6 11/29/2019 03:20 PM TSH 3.39 09/03/2020 01:09 PM TSH 3.03 02/01/2017 08:52 AM LDL 106 09/23/2020 12:14 PM LDL 125 02/01/2017 08:52 AM ALT 16 04/29/2012 11:00 AM HGBA1C 6.8 (H) 09/03/2020 01:09 PM HGBA1C 5.9 02/01/2017 08:52 AM Ana Hull Clinical Pharmacist [facility] ([facility] [phone] 01/27/2024, 10:43 AM documented in this encounter Plan of Treatment Health Maintenance Due Date Last Done Comments Pneumococcal Vaccine: 65+ Years (1 of 2 - PCV) 1948 Albumin/Creatinine Ratio 1960 DTap/Tdap Vaccines (1 - Tdap) 1961 Zoster Vaccines (1 of 2) 1992 Depression Monitoring 09/20/2019 09/19/2018 HbA1c 03/05/2021 09/03/2020, 02/01/2017 Diabetic Eye Exam 09/23/2021 09/23/2020 GFR 09/23/2021 09/23/2020, 04/, 11/29/2019, Additional history exists Diabetic Foot Exam 10/07/2021 10/07/2020 COVID-19 Vaccine ( season) 2024 Influenza Vaccine (FLU shot) (#1) 2024 HPV [...] as of this encounter Visit Diagnoses Diagnosis Type 2 diabetes mellitus with hemoglobin A1c goal of less than 8.0% (HCC) documented in this encounter Care Teams Technical Illustrations Map Inker Relationship Specialty Start Date End Date Vasile Hillman MD [address] [facility] [place] [address] PCP - General Family Medicine 10/23/20 documented as of this encounter
--- NOTE | 2024-02-23 13:27 | Hospitalist Progress Note ---
Date of Service February 23, 2024 Assessment & Plan (1) Chest pain: Plan: Likely musculoskeletal chest pain No relationship to activity and does not have any associated symptoms suggestive of cardiac No relief with nitroglycerin given at the ER Possibly contributed by uncontrolled hypertension Serial troponins are unremarkable and EKG is not showing any change Echo of the heart showed- borderline concentric LVH, LV wall motion is normal, LV systolic function is normal with EF 60 to 65% and there is no significant valvular disease Will get PT and OT evaluation and possible discharge this afternoon Uncontrolled hypertension The dose of losartan has been titrated and the blood pressure is trending down Hyponatremia secondary to home diuretic Rx HCTZ is on hold and sodium level has been around 131 GERD, stable on home PPI DM2 on oral medication, well-controlled as of last outpatient hemoglobin A1c of 6.8 2020 Aanxiety/mood disorder, at baseline ISS BG goal 1 10-1 40, carb count coverage, update hemoglobin A1c Past tobacco abuse DVT prophylaxis. Lovenox subcu Full code Patient daughter requesting updates providers. Angel Cherelle Pichardo, contact #[phone]. Admission and Anticipated Discharge Date Admission Date: February 23, 2024 Subjective 02/23/2024 The patient was seen and examined in telemetry unit He was admitted with atypical chest pain and back pain likely secondary to hypertensive urgency Still has some discomfort/pain at the back but denies any other significant symptoms He has been feeling a lot better following admission Review of Systems Review of Systems: All systems reviewed and are unremarkable except as noted below Physical Exam Physical Exam: Lying in bed without any acute distress Constitutional: average body habitus; not ill appearing Eyes: PERRL, conjunctivae normal, anicteric sclerae ENMT: external ear and nose normal, oropharynx normal Neck: trachea midline, no thyromegaly Respiratory: no respiratory distress Auscultation: lungs clear to auscultation bilaterally Cardiovascular: Rate/Rhythm: regular rate and regular rhythm; not tachycardic Heart Sounds: normal S1 and normal S2; no murmur Extremities: no edema Gastrointestinal (Abdomen): Inspection/Auscultation: normal bowel sounds; abdomen not distended Percussion/Palpation: abdomen soft; abdomen nontender Musculoskeletal: No acute arthritis involving any of the joint Neurologic: normal touch/pain/proprioception and moves all extremities; no focal motor deficits Psychiatric: A+Ox3, euthymic affect Lymphatic: no cervical or axillary lymphadenopathy Results & Data Results & Data Vital Signs (Past 12 Hours) Vital Signs Temp Pulse Pulse Resp BP BP Pulse Ox 02/23/24 11:21 36.8 C 100 H 18 147/87 H 94 02/23/24 10:15 02/23/24 07:39 36.8 C 105 H 20 153/84 H 94 02/23/24 07:10 105 H 02/23/24 05:31 36.5 C 103 H 18 161/90 H 93 02/23/24 04:54 100 H 20 150/86 H 96 02/23/24 04:12 96 H 02/23/24 04:00 97 H 17 122/81 93 02/23/24 03:49 138/92 02/23/24 03:46 157/110 H 02/23/24 03:46 104 H 20 157/110 H 93 02/23/24 03:06 100 H 14 155/92 H 96 02/23/24 02:36 105 H 22 175/104 H 95 02/23/24 01:57 36.5 C 108 H 20 137/84 95 O2 Del Method 02/23/24 11:21 Room Air 02/23/24 10:15 Room Air 02/23/24 07:39 Room Air 02/23/24 07:10 02/23/24 05:31 Room Air 02/23/24 04:54 Room Air 02/23/24 04:12 02/23/24 04:00 02/23/24 03:49 02/23/24 03:46 02/23/24 03:46 Room Air 02/23/24 03:06 02/23/24 02:36 02/23/24 01:57 Room Air Laboratory Results Short CBC 02/23/24 Range/Units 02:05 WBC 11.20 H (4.8-10.8) K/ul Hgb 14.4 (14.0-18.0) g/dl Hct 41.8 L (42.0-52.0) % Plt Count 233 (130-400) K/uL BMP 02/23/24 02:05 Sodium 131 L Potassium 4.2 Chloride 100 Carbon Dioxide 23 BUN 11 Creatinine 0.89 Glucose 152 H Calcium 9.2 Liver Function 02/23/24 Range/Units 02:05 Total Bilirubin 0.4 (0.2-1.0) mg/dl AST 14 (13-39) U/L ALT 14 (7-52) U/L Alkaline Phosphatase 55 (34-104) U/L Albumin 3.7 (3.4-5.0) gm/dl Medications Administered Current Inpatient Medications Acetaminophen (Acetaminophen 325 Mg Tab) 650 mg PO QID PRN PRN Reason: pain/fever Stop: 03/24/24 03:35 Dextrose (Dextrose 50% 50 Ml Syringe) 25 - 50 ml IV UD PRN; Protocol PRN Reason: Hypoglycemia Protocol Stop: 03/24/24 03:34 Enoxaparin Sodium (Enoxaparin Inj 40 Mg/0.4 Ml Syr) 40 mg SQ QAM PASHA Stop: 03/25/24 08:59 Glucagon (Glucagon For Inj 1 Mg Vial) 1 mg SQ UD PRN; Protocol PRN Reason: Hypoglycemia Protocol Stop: 03/24/24 03:34 Glucose (Glucose 40% Gel 15 Gm Tube) 15 - 30 gm PO UD PRN; Protocol PRN Reason: Hypoglycemia Protocol Stop: 03/24/24 03:34 Glucose (Glucose 10 Tab/Tube) 4 - 8 tab PO UD PRN; Protocol PRN Reason: Hypoglycemia Treatment Stop: 03/24/24 03:34 Sodium Chloride (Nss) 1,000 mls @ 80 mls/hr IV .[id number] ONE Stop: 02/23/24 15:23 Last Admin: 02/23/24 03:33 Dose: 80 mls/hr Promethazine HCl (Phenergan) 6.25 mg in 50.25 mls @ 201 mls/hr IV Q6H PRN PRN Reason: Nausea And Vomiting Stop: 03/24/24 03:35 Last Infusion: 02/23/24 05:05 Dose: Infused Insulin Aspart (Insulin Aspart Per Unit Charge) 0 units SC ACHS PASHA Stop: 03/24/24 05:59 Last Admin: 02/23/24 12:39 Dose: Not Given Losartan Potassium (Losartan Potassium 50 Mg Tab) 50 mg PO DAILY [facility] Stop: 03/25/24 08:59 Miscellaneous (Carbohydrates For Hypoglycemia ) 15 - 30 gm PO UD PRN PRN Reason: Hypoglycemia Protocol Stop: 03/24/24 03:34 Morphine Sulfate (Morphine Sulfate 2 Mg/Ml Carp) 2 mg IV Q3H PRN PRN Reason: Pain Stop: 03/08/24 03:35 Oxycodone HCl (Oxycodone Hcl Ir 5 Mg Tab (Immediate Release)) 5 mg PO Q4H PRN PRN Reason: Pain Stop: 03/08/24 03:35 Pantoprazole Sodium (Pantoprazole 40 Mg Tab) 40 mg PO DAILY PASHA Stop: 03/24/24 08:59 Last Admin: 02/23/24 08:14 Dose: 40 mg (1) Chest pain Chest pain type: unspecified Qualified Code(s): R07.9 - Chest pain, unspecified
--- NOTE | 2024-02-23 15:13 | Electrocardiogram Report ---
Test Reason : Blood Pressure : */* mmHG Vent. Rate : 117 BPM Atrial Rate : 117 BPM P-R Int : 172 ms QRS Dur : 72 ms QT Int : 306 ms P-R-T Axes : 52 32 5 degrees QTcB Int : 426 ms Sinus tachycardia Possible Left atrial enlargement Nonspecific ST abnormality Abnormal ECG When compared with ECG of 15-Apr-2017 12:29, Non-specific change in ST segment in Inferior leads Nonspecific T wave abnormality now evident in Lateral leads Confirmed by Nico Shnanon ([id number]) on 02/23/2024 3:13:25 PM Referred By: REFERRED SELF Confirmed By: Nico Shannon
[2024-02-23] MEDS: ACETAMINOPHEN 325 MG TAB PO PRN (16:57)
[2024-02-23 22:46] VITALS: RESP 16
[2024-02-24 07:09] LABS: Basophils # (auto) 0.06 K/uL (0.00-0.20); Basophils % (auto) 0.7 %; Eosinophils # (auto) 0.37 K/uL (0.00-0.50); Eosinophils % (auto) 4.2 %; Hemoglobin 15.3 g/dl (14.0-18.0); Immature Granulocytes # (auto) 0.02 K/uL (0.01-0.20); Immature Granulocytes % (auto) 0.2 %; Lymphocytes # (auto) 2.29 K/uL (1.20-3.40); Lymphocytes % (auto) 26.2 %; Mean Corpuscular Hemoglobin 29.9 pg (25.0-34.0); Mean Corpuscular Volume 88.1 fL (80.0-100.0); Mean Platelet Volume 9.8 fL (9.4-12.4); Monocytes # (auto) 0.62 K/uL (0.11-0.59); Monocytes % (auto) 7.1 %; Neutrophils # (auto) 5.39 K/uL (1.40-6.50); Neutrophils % (auto) 61.6 %; Platelet Count 246 K/uL (130-400); RDW Standard Deviation 41.8 fL (36.4-46.3); Red Blood Count 5.11 M/uL (4.70-6.10); White Blood Count 8.75 K/ul (4.8-10.8)
[2024-02-24 07:27] LABS: BUN Creatinine Ratio 9.3 (10-20); Calcium 9.7 mg/dl (8.6-10.3); Creatinine Clr Calc Pharmacy 61.7 ml/min; Magnesium 2.1 mg/dl (1.7-2.4); Potassium 4.4 mmol/L (3.5-5.1)
[2024-02-24] MEDS: ENOXAPARIN INJ 40 MG/0.4 ML SYR SQ SCH (08:22)
[2024-02-24] MEDS: LOSARTAN POTASSIUM 50 MG TAB PO SCH (08:23)
[2024-02-24] MEDS: AZITHROMYCIN 250 MG TAB PO SCH (10:32)
[2024-02-24 11:39] VITALS: BP 152/81; PULSE 73; TEMP 97.3; O2SAT 94
--- NOTE | 2024-02-24 11:47 | Hospitalist Progress Note ---
Date of Service February 24, 2024 Assessment & Plan (1) Chest pain: Plan: Likely musculoskeletal chest pain No relationship to activity and does not have any associated symptoms suggestive of cardiac No relief with nitroglycerin given at the ER Possibly contributed by uncontrolled hypertension Serial troponins are unremarkable and EKG is not showing any change Echo of the heart showed- borderline concentric LVH, LV wall motion is normal, LV systolic function is normal with EF 60 to 65% and there is no significant valvular disease Will get PT and OT evaluation and possible discharge this afternoon Pneumonia CT evidence of mild dependent lower lobe groundglass compressive atelectasis/consolidation Likely presented with pleuritic pain secondary to consolidation in the lower lobes Received a dose of azithromycin in the emergency room and will continue for the next 4 days Uncontrolled hypertension The dose of losartan has been titrated and the blood pressure is trending down Blood pressure is stable and at the upper side at 152/81 today Hyponatremia secondary to home diuretic Rx HCTZ is on hold and sodium level has been around 131 Sodium level is 134 as of 02/24/2024 GERD, stable on home PPI DM2 on oral medication, well-controlled as of last outpatient hemoglobin A1c of 6.8 2020 Aanxiety/mood disorder, at baseline ISS BG goal 1 10-1 40, carb count coverage, update hemoglobin A1c Past tobacco abuse DVT prophylaxis. Lovenox subcu Full code Patient daughter requesting updates providers. Ms. Cherelle Pichardo, contact #[phone]. Admission and Anticipated Discharge Date Admission Date: February 23, 2024 Subjective 02/23/2024 The patient was seen and examined in telemetry unit He was admitted with atypical chest pain and back pain likely secondary to hypertensive urgency Still has some discomfort/pain at the back but denies any other significant symptoms He has been feeling a lot better following admission 02/24/2024 The patient was seen and examined in telemetry unit He has been feeling much better and denies any back pain or any chest pain No fever and no chills and does not have any cough He will have PT and OT evaluation prior to discharge this afternoon Review of Systems Review of Systems: All systems reviewed and are unremarkable except as noted below Physical Exam Physical Exam: Lying in bed without any acute distress Constitutional: average body habitus; not ill appearing Eyes: PERRL, conjunctivae normal, anicteric sclerae ENMT: external ear and nose normal, oropharynx normal Neck: trachea midline, no thyromegaly Respiratory: no respiratory distress Auscultation: lungs clear to auscultation bilaterally Cardiovascular: Rate/Rhythm: regular rate and regular rhythm; not tachycardic Heart Sounds: normal S1 and normal S2; no murmur Extremities: no edema Gastrointestinal (Abdomen): Inspection/Auscultation: normal bowel sounds; abdomen not distended Percussion/Palpation: abdomen soft; abdomen nontender Neurologic: normal touch/pain/proprioception and moves all extremities; no focal motor deficits Psychiatric: A+Ox3, euthymic affect Lymphatic: no cervical or axillary lymphadenopathy Results & Data Results & Data Vital Signs (Past 12 Hours) Vital Signs Temp Pulse Pulse Resp BP Pulse Ox Pulse Ox 02/24/24 11:09 36.3 C L 73 16 152/81 H 94 02/24/24 09:44 02/24/24 09:43 75 02/24/24 07:31 36.9 C 77 16 151/80 H 92 02/24/24 05:31 94 02/24/24 03:02 36.6 C 88 16 136/74 93 O2 Del Method O2 Del Method 02/24/24 11:09 Room Air 02/24/24 09:44 Room Air 02/24/24 09:43 02/24/24 07:31 Room Air 02/24/24 05:31 Room Air 02/24/24 03:02 Room Air Laboratory Results Short CBC 02/24/24 Range/Units 06:28 WBC 8.75 (4.8-10.8) K/ul Hgb 15.3 (14.0-18.0) g/dl Hct 45.0 (42.0-52.0) % Plt Count 246 (130-400) K/uL BMP 02/24/24 06:28 Sodium 134 L Potassium 4.4 Chloride 102 Carbon Dioxide 26 BUN 9 Creatinine 0.97 Glucose 127 H Calcium 9.7 Medications Administered Current Inpatient Medications Acetaminophen (Acetaminophen 325 Mg Tab) 650 mg PO QID PRN PRN Reason: pain/fever Stop: 03/24/24 03:35 Last Admin: 02/24/24 10:29 Dose: 650 mg Azithromycin (Azithromycin 250 Mg Tab) 250 mg PO QAM [facility] Stop: 03/02/24 09:29 Last Admin: 02/24/24 10:32 Dose: 250 mg Dextrose (Dextrose 50% 50 Ml Syringe) 25 - 50 ml IV UD PRN; Protocol PRN Reason: Hypoglycemia Protocol Stop: 03/24/24 03:34 Enoxaparin Sodium (Enoxaparin Inj 40 Mg/0.4 Ml Syr) 40 mg SQ QAM PASHA Stop: 03/25/24 08:59 Last Admin: 02/24/24 08:22 Dose: Not Given Glucagon (Glucagon For Inj 1 Mg Vial) 1 mg SQ UD PRN; Protocol PRN Reason: Hypoglycemia Protocol Stop: 03/24/24 03:34 Glucose (Glucose 40% Gel 15 Gm Tube) 15 - 30 gm PO UD PRN; Protocol PRN Reason: Hypoglycemia Protocol Stop: 03/24/24 03:34 Glucose (Glucose 10 Tab/Tube) 4 - 8 tab PO UD PRN; Protocol PRN Reason: Hypoglycemia Treatment Stop: 03/24/24 03:34 Promethazine HCl (Phenergan) 6.25 mg in 50.25 mls @ 201 mls/hr IV Q6H PRN PRN Reason: Nausea And Vomiting Stop: 03/24/24 03:35 Last Infusion: 02/23/24 05:05 Dose: Infused Insulin Aspart (Insulin Aspart Per Unit Charge) 0 units SC ACHS PASHA Stop: 03/24/24 05:59 Last Admin: 02/24/24 08:22 Dose: Not Given Losartan Potassium (Losartan Potassium 50 Mg Tab) 50 mg PO DAILY PASHA Stop: 03/25/24 08:59 Last Admin: 02/24/24 08:23 Dose: 50 mg Miscellaneous (Carbohydrates For Hypoglycemia ) 15 - 30 gm PO UD PRN PRN Reason: Hypoglycemia Protocol Stop: 03/24/24 03:34 Morphine Sulfate (Morphine Sulfate 2 Mg/Ml Carp) 2 mg IV Q3H PRN PRN Reason: Pain Stop: 03/08/24 03:35 Oxycodone HCl (Oxycodone Hcl Ir 5 Mg Tab (Immediate Release)) 5 mg PO Q4H PRN PRN Reason: Pain Stop: 03/08/24 03:35 Pantoprazole Sodium (Pantoprazole 40 Mg Tab) 40 mg PO DAILY PASHA Stop: 03/24/24 08:59 Last Admin: 02/24/24 08:23 Dose: 40 mg (1) Chest pain Chest pain type: unspecified Qualified Code(s): R07.9 - Chest pain, unspecified
--- NOTE | 2024-03-08 18:24 | Discharge Summary ---
Date of Service March 08, 2024 Admission HPI Per Admitting Provider History obtained from patient, family, and records. Medical history significant for hypertension, GERD, DM2 on oral medications, anxiety/mood disorder, migraine, past tobacco abuse. Last confinement 2011 for TIA symptoms attributed to migraine. Yesterday, patient noted substernal tightness with some radiation to the right arm. No unusual cough symptoms other than congestion symptoms from a few weeks ago. No unusual headache symptoms. No SOB. Different from reflux as per patient. Patient's family wondering about tick bites. Patient brought to ER by EMS. SBP 170s upon arrival at the ER. No relief with nitroglycerin administration at the ER. Medical History as above Surgical History : None Family History : Lung cancer, breast cancer Personal/Social history : Past tobacco abuse, no EtOH intake, retired from concrete work Admission Exam Per Admitting Provider Physical Exam: GENERAL: Slightly uncomfortable, hard of hearing, no respiratory distress SKIN: Normal color, warm HEENT: [place] palpebral conjunctivae, no ptosis, dry buccal mucosa NECK : Supple, no tenderness CHEST : CTA, no tenderness HEART : Tachycardic, no obvious murmurs ABDOMEN: Some distention, nontender EXTREMITIES : No LE swelling/tenderness, no other conspicuous deformities noted NEUROLOGIC : Coherent, no facial asymmetry, hard of hearing, no other gross focality Principal Diagnosis Musculoskeletal chest pain, possible basilar pneumonia, hypertension, hyponatremia secondary to HCTZ Discharge Exam Lying in bed without any acute distress Constitutional average body habitus; not ill appearing Eyes PERRL, conjunctivae normal, anicteric sclerae ENMT external ear and nose normal, oropharynx normal Neck trachea midline, no thyromegaly Respiratory no respiratory distress Auscultation: lungs clear to auscultation bilaterally Cardiovascular Rate/Rhythm: regular rate and regular rhythm; not tachycardic Heart Sounds: normal S1 and normal S2; no murmur Extremities: no edema Gastrointestinal (Abdomen) Inspection/Auscultation: normal bowel sounds; abdomen not distended Percussion/Palpation: abdomen soft; abdomen nontender Neurologic normal touch/pain/proprioception and moves all extremities; no focal motor defic its Psychiatric A+Ox3, euthymic affect Lymphatic no cervical or axillary lymphadenopathy Discharge Data Allergies Allergy/AdvReac Type Severity Reaction Status Date / Time Penicillins Allergy Mild Verified 04/15/17 13:03 Consultations 02/23/24 02:45 ED Decision to Admit Stat Ordered Studies 02/23/24 00:34 CT angio chest PE protocol Stat Hospital Course (1) Chest pain: Likely musculoskeletal chest pain No relationship to activity and does not have any associated symptoms suggestive of cardiac No relief with nitroglycerin given at the ER Possibly contributed by uncontrolled hypertension Serial troponins are unremarkable and EKG is not showing any change Echo of the heart showed- borderline concentric LVH, LV wall motion is normal, LV systolic function is normal with EF 60 to 65% and there is no significant valvular disease Will get PT and OT evaluation and possible discharge this afternoon Pneumonia CT evidence of mild dependent lower lobe groundglass compressive atelectasis/consolidation Likely presented with pleuritic pain secondary to consolidation in the lower lobes Received a dose of azithromycin in the emergency room and will continue for the next 4 days Uncontrolled hypertension The dose of losartan has been titrated and the blood pressure is trending down Blood pressure is stable and at the upper side at 152/81 today Hyponatremia secondary to home diuretic Rx HCTZ is on hold and sodium level has been around 131 Sodium level is 134 as of 02/24/2024 GERD, stable on home PPI DM2 on oral medication, well-controlled as of last outpatient hemoglobin A1c of 6.8 2020 Aanxiety/mood disorder, at baseline ISS BG goal 1 10-1 40, carb count coverage, update hemoglobin A1c Past tobacco abuse DVT prophylaxis. Lovenox subcu Full code Patient daughter requesting updates providers. Ms. Cherelle Pichardo, contact #[phone]. Total Time Total Time Spent Total Time Spent (In Minutes): 35 minutes Discharge Plan Discharge Items Patient Disposition: Home - Self-Care Reason For Visit: CHEST PAIN Discharge Diagnosis: Musculoskeletal chest pain, possible basilar pneumonia, hypertension, hyponatremia secondary to HCTZ Condition on Discharge: Good Activity: Resume your previous activity Non-emergency contact: Primary Care Provider Call non-emergency contact if: you have any medication questions and your symptoms worsen Follow-up/Referrals: Enrique Aleman MD [Primary Care Provider] - (Date & Time 02/28/2024 12:20 PM Provider Enrique Aleman MD Department Family Practice [facility] ) Diet: Heart Healthy Addtl Attending Provider Instructions: Please take precautions to avoid falls Finish the course of antibiotic Please give appointment with the healthcare providers Your hydrochlorothiazide has been discontinued due to low sodium level Pending Studies at Discharge: No Stand-Alone Forms: My [facility], Smoking Cessation Medications and DC Order Prescriptions: New losartan 50 mg Tablet 50 mg PO DAILY Qty: 3 0RF azithromycin 250 mg Tablet 250 mg PO QAM Qty: 3 0RF Continued omeprazole 40 mg capsule,delayed release(DR/EC) 40 mg PO DAILY metformin 500 mg tablet extended release 24 hr 500 mg PO DAILY Discontinued losartan 25 mg tablet 25 mg PO DAILY hydrochlorothiazide 12.5 mg tablet 12.5 mg PO DAILY Discharge Orders: Discharge Order (Routine); Ordered 02/24/24 Ordered By: Preston Washburn/Other Patient Handouts: Managing Type 2 Diabetes Admission Data Admit Date/Time: 02/23/24 03:34 Attending Provider: Preston Tidwell Admit Provider: Best Dean Primary Care Provider: Enrique Aleman Other Providers: Best Dean Other Interventions: Discharge Summary Assessment (RN) Last Done: 02/24/24 13:46
== END 2024-02-24 14:50 | disposition home or self-care (01) ==
LOC: 2S 00:20 → ED 00:20 → SUATTDRO 03:34 → 2S 04:54

== ENCOUNTER 2024-08-05 14:02 | Inpatient (IN) ==
--- OUTSIDE RECORDS SUMMARY | 2024-08-05 14:09 | External Medical Summary ---
Author Name Unknown Address Unknown Organization [id number]:[facility] [place] - [address] [facility] [place] [address] Laboratory Report Ordering Provider Test Date Status MANUEL NEVILLE 02/28/2024 12:55:36 Final Observation Date Value Abnormality Reference (Units ) Status HbA1C 02/28/2024 12:55:36 6.6 Above high normal 4. 0-5.6 (%) Final The use of HbA1c to monitor glycemic status is based on normal hemoglobin and HbA composition. This test should not be used in patients with abnormal hemoglobin that affects the half life of the red blood cell or the in vivo glycation rates. Glucose, estimated average 02/28/2024 12:55:36 143 Above high normal <126 (mg/dL) Thai adames Performing Location [facility] [place] - [address] [facility] [place] [address]
--- OUTSIDE RECORDS SUMMARY | 2024-08-05 14:09 | External Medical Summary | Summary of Care ---
Author Name Unknown Organization [facility] Address [address] [facility] [place] [address] Phone [phone] Care Team Providers Care Licensed Social Worker Name Role Phone Enrique Aleman MD Primary Care Provider [phone] Reason for Visit * Reason Comments Hospital Follow-Up Pt here for hospital follow up Encounter Details Date Type Department Care Team (Late st Contact Info) Description 02/28/2024 12:20 PM EDT Office Visit [facility] [address] [place] [address] Enrique Aleman MD [address] [place] [address] Hospital discharge follow-up*; Type 2 diabetes mellitus with hemoglobin A1c goal of less than 8.0% ([facility]); HTN, goal below 130/80; Gastroesophageal reflux disease without esophagitis; Degenerative disc disease, cervical; 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 07/31/2016 Active Omeprazole 40 MG Oral Capsule Delayed Release (PriLOSEC)Indica tions:Reflux esophagitis Take 1 Capsule by mouth in the morning. 90 Capsule 2 05/25/2023 Active Losartan Potassium 50 MG Oral Tablet (Cozaar) Take 1 Tablet by mouth in the morning. 90 Tablet 02/27/2024 Active SUMAtriptan Succinate 50 MG Oral Tablet (Imitrex)Indicat ions:Migraine variant Take 2 tablets at onset of migraine and one tablet every 2 hours as needed, not more than 5 tablets in 24 hours 6 Tablet 5 02/28/2024 Active metFORMIN HCl ER 500 MG Oral Tablet Extended Release 24 Hour (Glucophage XR)Indications:T ype 2 diabetes mellitus with hemoglobin A1c goal of less than 8.0% (HCC) Take 1 Tablet by mouth in the morning. 90 Tablet 3 02/28/2024 Active RA Vitamin D-3 50 MCG (1999 UT) Oral Capsule (Cholecalciferol )Indications:Vit early D deficiency Take 1 Capsule by mouth in the morning. 90 Capsule 05/25/2023 4 Discontinued hydroCHLOROthiaz dirk 12.5 MG Oral TabletIndication s:HTN, goal below 140/90 TAKE 1 TABLET BY MOUTH EVERY MORNING 90 Tablet 11/19/2023 4 Discontinued metFORMIN HCl ER 500 MG Oral Tablet Extended Release 24 Hour (Glucophage XR)Indications:T ype 2 diabetes mellitus with hemoglobin A1c goal of less than 8.0% (HCC) TAKE 1 TABLET BY MOUTH IN THE MORNING. NEEDS OFFICE VISIT AND LABS 30 Tablet 01/27/2024 4 Discontinued(Ref ill) documented as of this encounter (statuses as of 02/28/2024) Active Problems Problem Noted Date Diagnosed Date Degenerative disc disease, cervical 02/28/2024 Migraine with aura and witho ut status migrainosus, not intractable 02/28/2024 Type 2 diabetes mellitus wit h hemoglobin A1c goal of less than 8.0% 09/23/2020 HTN, goal below 130/80 04/19/2017 Moderate single current epis ode of major depressive disorder 02/01/2017 Overview: Pt denies - declines meds Gastroesophageal reflux disease without esophagi tis documented as of this encounter (statuses as of 02/28/2024) Resolved Problems Problem Noted Date Diagnosed Date Resolved Date Chronic kidney disease, stage 3a 09/24/2020 04/11/2021 Overview: Per CKD protocol Hypercalcemia 09/23/2020 04/11/2021 Migraine variant 03/11/2015 06/07/2017 Generalized anxiety disorder 06/09/2012 06/21/2014 Cervicalgia 06/21/2014 Chronic neck pain 02/28/2024 documented as of this encounter (statuses as of 02/28/2024) Immunizations Name Administration Dates Next Due Pneumococcal [...] on file documented as of this encounter Last Filed Vital Signs Vital Sign Reading Time Taken Comments Blood Pressure 122/80 02/28/2024 12:17 PM EDT Pulse 84 02/28/2024 12:17 PM EDT Temperature 36 C (96.8 F) 02/28/2024 12:17 PM EDT Respiratory Rate 18 02/28/2024 12:17 PM EDT Oxygen Saturation - - Inhaled Oxygen Concentration - - Weight 74.8 kg (165 lb) 02/28/2024 12:17 PM EDT Height 180.3 cm (5' 11") 02/28/2024 12:17 PM EDT Body Mass Index 23.01 02/28/2024 12:17 PM EDT documented in this encounter Progress Notes * Enrique Aleman MD - 02/28/2024 12:45 PM EDT SUBJECTIVE: Giovanny Mcginnis Jr. is a 83 year old male. Chief Complaint Patient presents with Hospital Follow-Up Pt here for hospital follow up HPI: Giovanny is a pleasant 83 year old male here today accompanied by his for a hospital discharge follow up from [facility]. He was discharged to home on 02/25/24. He went to the ER for atypical chest painand ended up being diagnosed with pneumonia which was treated. He feels much better today. He is complaining of a migraine. He has had migraines for many years but has only ever taken Tylenol for them, which does not help. He needs his medications refilled today and his blood work rechecked. The last time I saw Giovanny prior to today's visit was 3 years ago. He notes he has been "okay" since then. 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 Omeprazole 40 MG Oral Capsule Delayed Release (PriLOSEC) Take 1 Capsule by mouth in the morning. 90Capsule 2 Losartan Potassium 50 MG Oral Tablet (Cozaar) Take 1 Tablet by mouth in the morning. 90 Tablet 0 SUMAtriptan Succinate 50 MG Oral Tablet (Imitrex) Take 2 tablets at onset of migraine and one tablet every 2 hours as needed, not more than 5 tablets in 24 hours 6 Tablet 5 metFORMIN HCl ER 500 MG Oral Tablet Extended Release 24 Hour (Glucophage XR) Take 1 Tablet by mouthin the morning. 90 Tablet 3 No current facility-administered medications for this visit. Allergy: Review of patient's allergies indicates: Allergen Reactions Pcn [Penicillins] Hives OBJECTIVE: BP 122/80 | Pulse 84 | Temp 36 C (96.8 F) (Tympanic) | Resp 18 | Ht 1.803 m (5' 11") | Wt 74.8 kg (165 lb) | BMI 23.01 kg/m | BSA 1.94 m Gen: aao x 3, nad Lungs: ctab Heart: rrr, no mrg Ext: no c/c/e Neuro: no focal deficits ASSESSMENT AND PLAN: (Z09) Hospital discharge follow-up (primary encounter diagnosis) Plan: hospital records reviewed; I have no access to a discharge summary but will be obtaining one (E11.9) Type 2 diabetes mellitus with hemoglobin A1c goal of less than 8.0% (HCC) Plan: HEMOGLOBIN A1C, metFORMIN HCl ER 500 MG Oral Tablet Extended Release 24 Hour (Glucophage XR) -stable; check A1c today (I10) HTN, goal below 130/80 Plan: @ goal; continue losartan 50 mg; agree with hospital d/c HCTZ due to hyponatremia (K21.9) Gastroesophageal reflux disease without esophagitis Plan: stable (M50.30) Degenerative disc disease, cervical Plan: quiescent (F32.1) 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 No other complaints were offered at this time. Enrique Aleman MD documented in this encounter Nursing Notes * Sirisha Tomlin LPN - 02/28/2024 12:17 PM EDT The patient has been properly identified by confirmation of name and date of . Chief Complaint Patient presents with Hospital Follow-Up Pt here for hospital follow up documented in this encounter Plan of Treatment Upcoming Encounters Date Type Department Care Team (Late st Contact Info) Description 02/28/2024 1:10 PM EDT Laboratory [facility], [facility] [address] [place] [id number] Balbir Barrett [address] [place] [address] Encounter for long-term (current) use of medications; HTN, goal below 140/90; Type 2 diabetes mellitus with hemoglobin A1c goal of less than 8.0% (HCC); Gastroesophageal reflux disease without esophagitis; Hyponatremia 08/28/2024 11:40 AM EDT Office Visit [facility] [address] [place] [address] Enrique Aleman MD [address] [place] [address] Health Maintenance Due Date Last Done Comments Pneumococcal Vaccine: 65+ Years (1 of 2 - PCV) 1948 Albumin/Creatinine Ratio 1960 DTap/Tdap Vaccines (1 - Tdap) 1961 Zoster Vaccines (1 of 2) 1992 Adult Wellness Visit 2008 Depression Monitoring 09/20/2019 09/19/2018 HbA1c 03/05/2021 09/03/2020, 02/01/2017 Diabetic Eye Exam 09/23/2021 09/23/2020 GFR 09/23/2021 09/23/2020, 04, 11/29/2019, Additional history exists Diabetic Foot Exam 10/07/2021 10/07/2020 COVID-19 Vaccine (2023- season) 2024 Influenza Vaccine (FLU shot) (#1) [...] as of this encounter Visit Diagnoses Diagnosis Hospital discharge follow-up- Primary Other follow-up examination Type 2 diabetes mellitus with hemoglobin A1c goal of less than 8.0% (HCC) HTN, goal below 130/80 Unspecified essential hypertension Gastroesophageal reflux disease without esophagitis Esophageal reflux Degenerative disc disease, cervical Degeneration of cervical intervertebral disc 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 (HCC) Hyponatremia Hyposmolality and/or hyponatremia Migraine variant Variants of migraine, not elsewhere classified, without mention of intractable migraine without mention of status migrainosus Encounter for long-term (current) use of medications Encounter for long-term (current) use of other medications HTN, goal below 140/90 Unspecified essential hypertension Type 2 diabetes mellitus with hemoglobin A1c goal of less than 8.0% (HCC) Gastroesophageal reflux disease without esophagitis Esophageal reflux Hyponatremia Hyposmolality and/or hyponatremia documented in this encounter Care Teams Licensed Social Worker Relationship Specialty Start Date End Date Enrique Aleman MD [address] [place] [address] PCP - General Family Medicine 10/23/20 documented as of this encounter
--- OUTSIDE RECORDS SUMMARY | 2024-08-05 14:09 | External Medical Summary | Summary of Care ---
Author Name Unknown Organization [facility] Address [address] [facility] [place] [address] Phone [phone] Care Team Providers Care Director Of Managed Services Name Role Phone Enrique Aleman MD Primary Care Provider [phone] Reason for Visit * Reason Comments Outpatient Testing Encounter Details Date Type Department Care Team (Late st Contact Info) Description 02/28/2024 1:10 PM EDT Laboratory [facility], [facility] [place] [phone] [facility] [address] [facility] [place] [address] Encounter for long-term (current) use of medications; HTN, goal below 140/90; Type 2 diabetes mellitus with hemoglobin A1c goal of less than 8.0% ([facility]); Gastroesophageal reflux disease without esophagitis; Hyponatremia Allergies Active Allergy Reactions Criticality Noted Date [...] Omeprazole 40 MG Oral Capsule Delayed Release (PriLOSEC)Indication s:Reflux esophagitis Take 1 Capsule by mouth in the morning. 90 Capsule 2 05/25/2023 Active Losartan Potassium 50 MG Oral Tablet (Cozaar) Take 1 Tablet by mouth in the morning. 90 Tablet 02/27/2024 Active SUMAtriptan Succinate 50 MG Oral Tablet (Imitrex)Indications :Migraine variant Take 2 tablets at onset of migraine and one tablet every 2 hours as needed, not more than 5 tablets in 24 hours 6 Tablet 5 02/28/2024 Active metFORMIN HCl ER 500 MG Oral Tablet Extended Release 24 Hour (Glucophage XR)Indications:Type 2 diabetes mellitus with hemoglobin A1c goal of less than 8.0% (HCC) Take 1 Tablet by mouth in the morning. 90 Tablet 3 02/28/2024 Active documented as of this encounter (statuses as [...] on file documented as of this encounter Plan of Treatment Upcoming Encounters Date Type Department Care Team (Late st Contact Info) Description 08/28/2024 11:40 AM EDT [facility] Visit [facility] [address] [place] [address] Enrique Aleman MD [address] [place] [address] Pending Results Name Type Priority Associated Diagnoses Date /Time BASIC METABOLIC PANEL Lab Routine Encounter for long-term (current) use of medications HTN, goal below 140/90 02/28/2024 12:55 PM EDT HEMOGLOBIN A1C Lab Routine Type 2 diabetes mellitus with hemoglobin A1c goal of less than 8.0% (HCC) Encounter for long-term (current) use of medications 02/28/2024 12:55 PM EDT LIPID PANEL WITH DIRECT LDL IF TG IS HIGH Lab Routine Encounter for long-term (current) use of medications 02/28/2024 12:55 PM EDT VITAMIN B12 Lab Routine Encounter for long-term (current) use of medications Gastroesophageal reflux disease without esophagitis 02/28/2024 12:55 PM EDT MAGNESIUM Lab Routine Encounter for long-term (current) use of medications Gastroesophageal reflux disease without esophagitis 02/28/2024 12:55 PM EDT CBC Lab Routine Encounter for long-term (current) use of medications 02/28/2024 12:55 PM EDT Health Maintenance Due Date Last Done Comments [...] as of this encounter Visit Diagnoses Diagnosis Encounter for long-term (current) use of medications Encounter for long-term (current) use of other medications HTN, goal below 140/90 Unspecified essential hypertension Type 2 diabetes mellitus with hemoglobin A1c goal of less than 8.0% (HCC) Gastroesophageal reflux disease without esophagitis Esophageal reflux Hyponatremia Hyposmolality and/or hyponatremia documented in this encounter Care Teams Director Of Managed Services Relationship Specialty Start Date End Date Enrique Aleman MD [address] [place] [address] PCP - General Family Medicine 10/23/20 documented as of this encounter
--- OUTSIDE RECORDS SUMMARY | 2024-08-05 14:09 | External Medical Summary ---
Author Name Unknown Address Unknown Organization [id number] [address] [place] [address] Laboratory Report Ordering Provider Test Date Status MANUEL [place] 02/28/2024 12:55:36 Final Observation Date Value Abnormality Reference (Units ) Status WBC, Total 02/28/2024 12:55:36 11.10 Above high normal 4 .00-10.80 (K/uL) Final RBC 02/28/2024 12:55:36 5.53 4.50-5.25 (M/uL) Final Hemoglobin 02/28/2024 12:55:36 16.9 Above high normal 1 4.0-16.8 (g/dL) Final HCT 02/28/2024 12:55:36 49.0 Above high normal 40 .0-48.4 (%) Final MCV 02/28/2024 12:55:36 88.6 82.0-99.5 (fL) Final MCH 02/28/2024 12:55:36 30.6 27.0-34.0 (pg) Final MCHC 02/28/2024 12:55:36 34.5 32.0-36.0 (g/dL) Final RDW 02/28/2024 12:55:36 13.1 11.5-15.5 (%) Final Platelets 02/28/2024 12:55:36 303 140-400 (K /uL) Final MPV 02/28/2024 12:55:36 10.4 6.6-11.1 ( fL) Final Performing Location [facility] [address] [place] [address]
--- OUTSIDE RECORDS SUMMARY | 2024-08-05 14:09 | External Medical Summary | Summary of Care ---
Author Name Unknown Organization [facility] Address [address] [facility] [place] [address] Phone [phone] Care Team Providers Care Heat And Frost Insulator Helper Name Role Phone Enrique Aleman MD Primary Care Provider [phone] Reason for Visit * Reason Comments Short of Breath Dizziness Encounter Details Date Type Department Care Team (Late st Contact Info) Description 03/08/2024 10:00 AM EDT Office Visit Family Practice [facility] [address] [place] [address] Enrique Aleman MD [address] [place] [address] Bilateral impacted cerumen*; Benign paroxysmal positional vertigo due to bilateral vestibular disorder; Gastroesophageal reflux disease without esophagitis; Type 2 diabetes mellitus with hemoglobin A1c goal of less than 8.0% ([facility]); HTN, goal below 130/80; Migraine with aura and without status migrainosus, not intractable; 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 ([facility]) Allergies Active Allergy Reactions Criticality Noted Date Comments Penicillins Low 06/23/2006 Hives documented as of this encounter (statuses as of 03/09/2024) Medications Medication Sig Dispensed Refills Start Date End Date Status JULIO C LOW DOSE 81 MG PO TBEC one tab daily by mouth Active Multiple Vitamins-Minerals (OCUVITE ADULT 50+) Capsule Take 1 Cap by mouth daily. 07/31/2016 Active Losartan Potassium 50 MG Oral Tablet (Cozaar) Take 1 Tablet by mouth in the morning. 90 Tablet 02/27/2024 Active SUMAtriptan Succinate 50 MG Oral Tablet (Imitrex)Indicati ons:Migraine variant Take 2 tablets at onset of [...] the morning. 90 Tablet 3 02/28/2024 Active Omeprazole 40 MG Oral Capsule Delayed Release (PriLOSEC) Take 1 Capsule by mouth in the morning. 90 Capsule 2 03/08/2024 Active Meclizine HCl 25 MG Oral Tablet (Antivert) Take 1 Tablet by mouth 3 times a day as needed for Dizziness. 30 Tablet 1 03/08/2024 Active Neomycin-Polymyxi n-HC 3.5-93858-4 Otic Solution Administer 4 Drops into ears in the morning and 4 Drops at noon and 4 Drops before bedtime. To affected ear, for 10 days.. 10 mL 1 03/08/2024 Active Omeprazole 40 MG Oral Capsule Delayed Release (PriLOSEC)Indicat ions:Reflux esophagitis Take 1 Capsule by mouth in the morning. 90 Capsule 2 05/25/2023 Discontinue d(Refill) documented as of this encounter (statuses as of 03/09/2024) Active Problems Problem Noted Date Diagnosed Date [...] as of this encounter (statuses as of 03/09/2024) Resolved Problems Problem Noted Date Diagnosed Date Resolved Date Chronic kidney disease, stage 3a 09/24/2020 04/11/2021 Overview: Per CKD protocol Hypercalcemia 09/23/2020 04/11/2021 Migraine variant 03/11/2015 06/07/2017 Generalized anxiety disorder 06/09/2012 06/21/2014 Cervicalgia 06/21/2014 Chronic neck pain 02/28/2024 documented as of this encounter (statuses as of 03/09/2024) Immunizations Name Administration Dates Next Due Pneumococcal [...] Sign Reading Time Taken Comments Blood Pressure 138/82 03/08/2024 10:12 AM EDT Pulse 94 03/08/2024 10:12 AM EDT Temperature 36.6 C (97.8 F) 03/08/2024 10:12 AM E DT Respiratory Rate 18 03/08/2024 10:12 AM EDT Oxygen Saturation 96% 03/08/2024 10:12 AM EDT Inhaled Oxygen Concentration - - Weight 73.9 kg (163 lb) 03/08/2024 10:12 AM EDT Height 180.3 cm (5' 11") 03/08/2024 10:12 AM EDT Body Mass Index 22.73 03/08/2024 10:12 AM EDT documented in this encounter Progress Notes * Enrique Aleman MD - 03/09/2024 8:43 AM EDT SUBJECTIVE: Giovanny Mcginnis Jr. is a 83 year old male. Chief Complaint Patient presents with Short of Breath Dizziness HPI: Justice comes in today with his for some ongoing intermittent vertigo combined with "whooshing" sounds in his ears. He denies shortness of breath, nausea, or chest pain. I saw him recently here for an ER follow up and he has been doing okay since then. He does have rather significant bilateral cerumen impactions today I was able to partially remove mechanically but he will need some drops. 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 Losartan Potassium 50 MG Oral Tablet (Cozaar) Take 1 Tablet by mouth in the morning. 90 Tablet 0 metFORMIN HCl ER 500 MG Oral Tablet Extended Release 24 Hour (Glucophage XR) Take 1 Tablet by mouthin the morning. 90 Tablet 3 Omeprazole 40 MG Oral Capsule Delayed Release (PriLOSEC) Take 1 Capsule by mouth in the morning. 90Capsule 2 Meclizine HCl 25 MG Oral Tablet (Antivert) Take 1 Tablet by mouth 3 times a day as needed for Dizziness. 30 Tablet 1 Rhohdrgt-Qdqpnavkr-LB 3.5-19470-5 Otic Solution Administer 4 Drops into ears in the morning and 4 Drops at noon and 4 Drops before bedtime. To affected ear, for 10 days.. 10 mL 1 SUMAtriptan Succinate 50 MG Oral Tablet (Imitrex) Take 2 tablets at onset of migraine and one tablet every 2 hours as needed, not more than 5 tablets in 24 hours 6 Tablet 5 No current facility-administered medications for this visit. Allergy: Review of patient's allergies indicates: Allergen Reactions Pcn [Penicillins] Hives OBJECTIVE: BP 138/82 | Pulse 94 | Temp 36.6 C (97.8 F) (Tympanic) | Resp 18 | Ht 1.803 m (5' 11") | Wt 73.9 kg (163 lb) | SpO2 96% | BMI 22.73 kg/m | BSA 1.92 m Gen: nad Ears: bilateral oxidized cerumen emboli partially removed with lighted curette Eyes: no nystagmus Neuro: grossly in tact ASSESSMENT AND PLAN: (H61.23) Bilateral impacted cerumen (primary encounter diagnosis) Plan: I think this was the crux of his problem; he reported immediate symptom relief today (H81.13) Benign paroxysmal positional vertigo due to bilateral vestibular disorder Plan: can use meclizine prn (K21.9) Gastroesophageal reflux disease without esophagitis Plan: stable (E11.9) Type 2 diabetes mellitus with hemoglobin A1c goal of less than 8.0% (HCC) Plan: well controlled (I10) HTN, goal below 130/80 Plan: stable (G43.109) Migraine with aura and without status migrainosus, not intractable Plan: quiescent (F32.1) 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 No other complaints were offered at this time. Enrique Aleman MD documented in this encounter Nursing Notes * Sirisha Tomlin LPN - 03/08/2024 10:12 AM EDT The patient has been properly identified by confirmation of name and date of . Chief Complaint Patient presents with Short of Breath Dizziness ' documented in this encounter Plan of Treatment Upcoming Encounters Date Type Department Care Team (Late st Contact Info) Description 08/28/2024 11:40 AM EDT Office Visit Family [facility] [address] [facility] [place] [address] Enrique Aleman MD [address] [facility] [place] [address] Health Maintenance Due Date Last Done Comments Pneumococcal Vaccine: 65+ Years (1 of 2 - PCV) 1948 Albumin/Creatinine Ratio 1960 DTap/Tdap Vaccines (1 - Tdap) 1961 Zoster Vaccines (1 of 2) 1992 Adult Wellness Visit 2008 Depression Monitoring 09/20/2019 09/19/2018 Diabetic Eye Exam 09/23/2021 09/23/2020 Diabetic Foot Exam 10/07/2021 10/07/2020 COVID-19 Vaccine ( season) 2024 Influenza Vaccine (FLU shot) (#1) 2024 HbA1c 08/28/2024 02/28/2024, /, 02/01/2017 GFR 02/27/2025 02/28/2024, 09/14, 09/03/2020, Additional history exists HPV (Gardasil) Vaccine Aged Out No lo [...] as of this encounter Visit Diagnoses Diagnosis Bilateral impacted cerumen- Primary Impacted cerumen Benign paroxysmal positional vertigo due to bilateral vestibular disorder Gastroesophageal reflux disease without esophagitis Esophageal reflux Type 2 diabetes mellitus with hemoglobin A1c goal of less than 8.0% (HCC) HTN, goal below 130/80 Unspecified essential hypertension Migraine with aura and without status migrainosus, not intractable Migraine with aura, without mention of intractable migraine without mention of status migrainosus 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
--- OUTSIDE RECORDS SUMMARY | 2024-08-05 14:09 | External Medical Summary ---
Author Name Unknown Address Unknown Organization [id number]:[facility] [address] [place] [address] Laboratory Report Ordering Provider Test Date Status MANUEL NEVILLE 02/28/2024 12:55:36 Final Observation Date Value Abnormality Reference (Units ) Status BUN 02/28/2024 12:55:36 16 6-20 (mg/dL) Final Creatinine 02/28/2024 12:55:36 1.0 0.6-1.2 (mg/dL) Final Glomerular filtration rate/1.73 sq M.predicted [Volume Rate/Area] in Serum, Plasma or Blood by Creatinine-based formula (CKD-EPI) 02/28/2024 12:55:36 73 >=60 (mL/min) Final eGFR is calculated based on the CKD-EPI 2020 equation. Sodium 02/28/2024 12:55:36 133 Below low normal 135 -146 (mmol/L) Final Potassium 02/28/2024 12:55:36 4.7 3.5-5.1 (m mol/L) Final Cl 02/28/2024 12:55:36 98 98-107 (mm ol/L) Final CO2 02/28/2024 12:55:36 17 Below low normal 22- 32 (mmol/L) Final Anion gap 02/28/2024 12:55:36 18 Above high normal 7- 15 (mmol/L) Final Glucose 02/28/2024 12:55:36 118 70-120 (mg /dL) Final Calcium 02/28/2024 12:55:36 10.7 Above high normal 8. 4-10.2 (mg/dL) Final Performing Location LABORATORY [facility] [address] [place] [address]
--- OUTSIDE RECORDS SUMMARY | 2024-08-05 14:09 | External Medical Summary ---
Author Name Unknown Address Unknown Organization [id number] [address] [place] [id number] Laboratory Report Ordering Provider Test Date Status CHRISTIANA HONG 04/14/2024 14:15:59 Final Observation Date Value Abnormality Reference (Units ) Status BUN 04/14/2024 14:15:59 13 6-20 (mg/dL) Final Creatinine 04/14/2024 14:15:59 1.1 0.6-1.2 (mg/dL) Final Glomerular filtration rate/1.73 sq M.predicted [Volume Rate/Area] in Serum, Plasma or Blood by Creatinine-based formula (CKD-EPI) 04/14/2024 14:15:59 71 >=60 (mL/min) Final eGFR is calculated based on the CKD-EPI 2020 equation. Sodium 04/14/2024 14:15:59 136 135-146 (m mol/L) Final Potassium 04/14/2024 14:15:59 4.0 3.5-5.1 (m mol/L) Final Cl 04/14/2024 14:15:59 101 98-107 (mm ol/L) Final CO2 04/14/2024 14:15:59 20 Below low normal 22- 32 (mmol/L) Final Anion gap 04/14/2024 14:15:59 15 7-15 (mmol /L) Final Glucose 04/14/2024 14:15:59 151 Above high normal 70 -120 (mg/dL) Final Calcium 04/14/2024 14:15:59 10.4 Above high normal 8. 4-10.2 (mg/dL) Final Performing Location LAB[facility]ATORY [facility] [address] [place] [address]
--- OUTSIDE RECORDS SUMMARY | 2024-08-05 14:09 | External Medical Summary | Summary of Care ---
Author Name Unknown Organization [facility] Address [address] [facility] [place] [address] Phone [phone] Care Team Providers Care Plant Wrapper Name Role Phone Enrique Aleman MD Primary Care Provider [phone] Reason for Visit * Reason Onset Date Comments Test Results 04/14/2024 Encounter Details Date Type Department Care Team (Late st Contact Info) Description 04/14/2024 Telephone Family Practice [facility] [address] [place] [address] Matilde Cooley MD [address] [place] [address] Test Results Allergies Active Allergy Reactions Criticality Noted Date Comments Penicillins Low 06/23/2006 Hives documented as of this encounter (statuses as of 04/21/2024) Medications JULIO C LOW DOSE 81 MG PO TBEC one tab daily by mouth Active Multiple Vitamins-Minera ls (OCUVITE ADULT 50+) Capsule Take 1 Cap by mouth daily. 7 Active SUMAtriptan Succinate 50 MG Oral Tablet (Imitrex)Indica tions:Migraine variant Take 2 tablets at onset of migraine and one tablet every 2 hours as needed, not more than 5 tablets in 24 hours 6 Tablet 5 4 Active Additional Information Patient not taking.Reported on 04/14/2024 metFORMIN HCl ER 500 MG Oral Tablet Extended Release 24 Hour (Glucophage XR)Indications: Type 2 diabetes mellitus with hemoglobin A1c goal of less than 8.0% ([facility]) Take 1 Tablet by mouth in the morning. 90 Tablet 3 4 Active Omeprazole 40 MG Oral Capsule Delayed Release (PriLOSEC) Take 1 Capsule by mouth in the morning. 90 Capsule 2 4 Active Meclizine HCl 25 MG Oral Tablet (Antivert) Take 1 Tablet by mouth 3 times a day as needed for Dizziness. 30 Tablet 1 4 Active Neomycin-Polymy susan-HC 3.5-77050-1 Otic Solution Administer 4 Drops into ears in the morning and 4 Drops at noon and 4 Drops before bedtime. To affected ear, for 10 days.. 10 mL 1 4 Active Losartan Potassium 100 MG Oral Tablet (Cozaar)Indicat ions:HTN, goal below 130/80 Take 1 Tablet by mouth in the morning. 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 02/01/2017 Overview (03/29/2017): Pt denies - declines meds Gastroesophageal reflux disease without esophagi tis documented as of this encounter (statuses as of 04/21/2024) Resolved Problems Problem Noted Date Diagnosed Date Resolved Date Chronic kidney disease, stage 3a 09/24/2020 04/11/2021 Overview: Per CKD protocol Hypercalcemia 09/23/2020 04/11/2021 Migraine variant 03/11/2015 06/07/2017 Generalized anxiety disorder 06/09/2012 06/21/2014 Cervicalgia 06/21/2014 Chronic neck pain 02/28/2024 documented as of this encounter (statuses as of 04/21/2024) Immunizations Name Administration Dates Next Due Pneumococcal Polysaccharide PPV23 (Pneumovax) 01/06/2008(Deferred: Patient Refused) TD - Tetanus/Diptheria (ADULT) 01/06/2008(Deferr ed: Patient Refused) documented as of this encounter Social History Tobacco Use Types Packs/Day Years Used Date Smoking Tobacco: Some Days Pipe Smokeless Tobacco: Never Comments:quit 1997 - cigaret lisa Does smoke a pipe once in a while (tobacco) Alcohol Use Standard Drinks/Week Comments No 0 (1 standard drink = 0.6 oz pur e alcohol) PHQ-2 Answer Date Recorded PHQ-2 Score 0 09/19/2018 Sex and Gender Information Value Date Recorded Sex Assigned at Not on file Legal Sex Male 5:03 AM EST Gender Identity Not on file Sexual Orientation Not on file Occupation Industry Job Start Date Job End Date Not on file Not on file Not on file Not on file documented as of this encounter Miscellaneous Notes * Telephone Encounter - Matilde Cooley MD - 04/21/2024 8:05 AM EST [facility] * Telephone Encounter - Meg Carmen LPN - 04/18/2024 10:01 AM EST Pt still not feeling well has some light headed and dizziness, stiffness back of head and wavy in front of eyes. Told pt to schedule with eye physician sooner than later and gave number for office [facility] gar. Has not kept record of BP's and he will try to keep track and write down results. He also was told to make an apt for fallow up with Dr Cooley after seeing eye doctor to discuss other issu es. * Telephone Encounter - Matilde Cooley MD - 04/16/2024 8:39 PM EST Rest of labs are back: -- no anemia -- normal thyroid -- calcium very mildly elevated, normal vitamin D. Recommend making sure well hydrated. How are BP with the higher dose of losartan? * Telephone Encounter - Anny Alarcon LPN - 04/14/2024 5:02 PM EST Called pt, aware. * Telephone Encounter - Matilde Cooley MD - 04/14/2024 5:00 PM EST Please let patient know that electrolytes look improved from mid February. Will let him know the rest of the results next week. documented in this encounter Plan of Treatment Upcoming Encounters Date Type Department Care Team (Late st Contact Info) Description 08/28/2024 11:40 AM EDT Office Visit Family [facility] [address] [place] [address] Enrique Aleman MD [address] [place] [address] Health Maintenance Due Date Last Done Comments DISCUSS TOBACCO CESSATION (REFER TO SMARTSET #[id number]) 1940 Pneumococcal Vaccine: 65+ Years (1 of 2 - PCV) 1948 Albumin/Creatinine Ratio 1960 DTap/Tdap Vaccines (1 - Tdap) 1961 Zoster Vaccines (1 of 2) 1992 Adult Wellness Visit 2008 Depression Monitoring 09/20/2019 09/19/2018 Diabetic Eye Exam 09/23/2021 09/23/2020 Diabetic Foot Exam 10/07/2021 10/07/2020 COVID-19 Vaccine (1 - season) 2024 Influenza Vaccine (FLU shot) (#1) 2024 HbA1c 08/28/2024 02/28/2024, 04/2 , 02/01/2017 GFR 04/14/2025 04/14/2024, 02/14, 09/23/2020, Additional history exists HPV (Gardasil) Vaccine Aged [...] Not on filedocumented as of this encounter Care Teams Plant Wrapper Relationship Specialty Start Date End Date Enrique Aleman MD [address] [place] [address] PCP - General Family Medicine 10/23/20 documented as of this encounter
--- OUTSIDE RECORDS SUMMARY | 2024-08-05 14:09 | External Medical Summary ---
Author Name Unknown Address Unknown Organization K01:[facility] [place] [address] [facility] [place] [address] Laboratory Report Ordering Provider Test Date Status CHRISTIANA HONG 04/14/2024 14:15:59 Final Observation Date Value Abnormality Reference (Units ) Status WBC, Total 04/14/2024 14:15:59 9.39 4.00-10.8 0 (K/uL) Final RBC 04/14/2024 14:15:59 5.54 4.50-5.25 (M/uL) Final Hemoglobin 04/14/2024 14:15:59 16.8 14.0-16.8 (g/dL) Final Anemia reflex testing trigge rs on a HGB < 12.0 for Females and HGB < 13.0 for Males in accordance with the WHO Anemia Guidelines
Anemia reflex testing triggers on a HGB < 12.0 for Females and HGB < 13.0 for Males in accordance with the WHO Anemia Guidelines HCT 04/14/2024 14:15:59 50.9 Above hi gh normal 40.0-48.4 (%) Final MCV 04/14/2024 14:15:59 91.9 82.0-99.5 (fL) Final MCH 04/14/2024 14:15:59 30.3 27.0-34.0 (pg) Final MCHC 04/14/2024 14:15:59 33.0 32.0-36.0 (g/dL) Final RDW 04/14/2024 14:15:59 12.8 11.5-15.5 (%) Final Platelets 04/14/2024 14:15:59 277 140-400 (K /uL) Final MPV 04/14/2024 14:15:59 10.9 6.6-11.1 ( fL) Final Nucleated erythrocytes/100 leukocytes [Ratio] in Blood by Automated count 04/14/2024 14:15:59 0 <=0 (/100 WBCs) Final Performing Location [facility] [place] - [address] [facility] [address]
--- OUTSIDE RECORDS SUMMARY | 2024-08-05 14:09 | External Medical Summary ---
Author Name Unknown Address Unknown Organization K01:LAB[facility]ATORY [facility] - [address] [place] [address] Laboratory Report Ordering Provider Test Date Status MANUEL NEVILLE 02/28/2024 12:55:36 Final Observation Date Value Abnormality Reference (Units ) Status Magnesium 02/28/2024 12:55:36 2.2 1.5-2.6 (m g/dL) Final Performing Location LABORATORY [facility] - [address] [place] [address]
--- OUTSIDE RECORDS SUMMARY | 2024-08-05 14:09 | External Medical Summary | Summary of Care ---
Author Name Unknown Organization [facility] Address [address] [facility] [place] [address] Phone [phone] Care Team Providers Care Automobile Spring Repairer Name Role Phone Enrique Aleman MD Primary Care Provider [phone] Reason for Visit * Reason Comments eRx-Medication Refill Encounter Details Date Type Department Care Team (Late st Contact Info) Description 02/28/2024 Refill Family Practice [facility] [address] [place] [address] Enrique Aleman MD [address] [place] [address] Type 2 diabetes mellitus with hemoglobin A1c goal of less than 8.0% ([facility]) Allergies Active Allergy Reactions Criticality Noted Date Comments Penicillins Low 06/23/2006 Hives documented as of this encounter (statuses as of 03/01/2024) Medications Medication Sig Dispensed Refills Start Date [...] as of this encounter (statuses as of 03/01/2024) Active Problems Problem Noted Date Diagnosed Date [...] as of this encounter (statuses as of 03/01/2024) Resolved Problems Problem Noted Date Diagnosed Date Resolved Date Chronic kidney disease, stage 3a 09/24/2020 04/11/2021 Overview: Per CKD protocol Hypercalcemia 09/23/2020 04/11/2021 Migraine variant 03/11/2015 06/07/2017 Generalized anxiety disorder 06/09/2012 06/21/2014 Cervicalgia 06/21/2014 Chronic neck pain 02/28/2024 documented as of this encounter (statuses as of 03/01/2024) Immunizations Name Administration Dates Next Due Pneumococcal [...] encounter Miscellaneous Notes * Telephone Encounter - Joanne Schmitt katie - 03/01/2024 6:47 AM EDT Refused Prescriptions: Disp Refills metFORMIN HCl ER 500 MG Oral Tablet Extend*30 Tab*0 Sig: TAKE 1TABLET BY MOUTH IN THE MORNING. NEEDS OFFICE VISIT AND LABSRefused By: JOANNE SCHMITT for Refusal: Duplicate Request documented in this encounter Plan of Treatment Upcoming Encounters Date Type Department Care Team (Late st Contact Info) Description 08/28/2024 11:40 AM EDT Office Visit Family Practice [facility] [address] [place] [address] Enrique Aleman MD [address] [place] [address] Health Maintenance Due Date Last Done Comments [...] HbA1c 08/28/2024 02/28/2024, 04/2 , 02/01/2017 GFR 02/27/2025 02/28/2024, 09/14, 09/03/2020, Additional [...] (HCC) documented in this encounter Care Teams Automobile Spring Repairer Relationship Specialty Start Date End Date Enrique Aleman MD [address] [place] [address] PCP - General Family Medicine 10/23/20 documented as of this encounter
--- OUTSIDE RECORDS SUMMARY | 2024-08-05 14:09 | External Medical Summary | Summary of Care ---
Author Name Unknown Organization [facility] Address [address] [facility] [place] [address] Phone [phone] Care Team Providers Care Business Systems Consultant Name Role Phone Enrique Aleman MD Primary Care Provider [phone] [phone] Reason for Visit * Reason Comments Acute Patient presents in office today for concerns with high BP (went back down to the normal) -- patient states he just feels off. Encounter Details Date Type Department Care Team (Late st Contact Info) Description 04/14/2024 1:40 PM EST Office Visit Family Practice [facility] [address] [facility] [place] [address] Matilde Cooley MD [address] [facility] [place] [address] HTN, goal below 130/80*; Chronic kidney disease, stage 2 (mild); Tachycardia; Hypercalcemia; Migraine with aura and without status migrainosus, not intractable Allergies Active Allergy Reactions Criticality Noted Date Comments Penicillins Low 06/23/2006 Hives documented as of this encounter (statuses as of 04/14/2024) Medications JULIO C LOW DOSE 81 MG PO TBEC one tab daily by mouth Active Multiple Vitamins-[place] als (OCUVITE ADULT 50+) Capsule Take 1 Cap by mouth daily. 08/01/19 17 Active SUMAtriptan Succinate 50 MG Oral Tablet (Imitrex)Indic ations:Migrain e variant Take 2 tablets at onset of migraine and one tablet every 2 hours as needed, not more than 5 tablets in 24 hours 6 Tablet 5 02/28/20 Active Additional Information Patient not taking.Reported on 04/14/2024 metFORMIN HCl ER 500 MG Oral Tablet Extended Release 24 Hour (Glucophage XR)Indications :Type 2 diabetes mellitus with hemoglobin A1c goal of less than 8.0% ([facility]) Take 1 Tablet by mouth in the morning. 90 Tablet 3 02/28/20 Active Omeprazole 40 MG Oral Capsule Delayed Release (PriLOSEC) Take 1 Capsule by mouth in the morning. 90 Capsule 2 03/08/20 Active Meclizine HCl 25 MG Oral Tablet (Antivert) Take 1 Tablet by mouth 3 times a day as needed for Dizziness. 30 Tablet 1 03/08/20 Active Neomycin-Polym yxin-HC 3.5-28130-2 Otic Solution Administer 4 Drops into ears in the morning and 4 Drops at noon and 4 Drops before bedtime. To affected ear, for 10 days.. 10 mL 1 03/08/20 Active Losartan Potassium 100 MG Oral Tablet (Cozaar)Indica tions:HTN, goal below 130/80 Take 1 Tablet by mouth in the morning. 90 Tablet 1 04/14/20 Active Losartan Potassium 50 MG Oral Tablet (Cozaar) Take 1 Tablet by mouth in the morning. 90 Tablet 02/27/20 024 Discontinued documented as of this encounter (statuses as of 04/14/2024) Active Problems Problem Noted Date Diagnosed Date Chronic kidney disease, stage 2 (mild) Degenerative disc disease, cervical 02/28/2024 Migraine with [...] as of this encounter (statuses as of 04/14/2024) Resolved Problems Problem Noted Date Diagnosed Date Resolved Date Chronic kidney disease, stage 3a 09/24/2020 04/11/2021 Overview: Per CKD protocol Hypercalcemia 09/23/2020 04/11/2021 Migraine variant 03/11/2015 06/07/2017 Generalized anxiety disorder 06/09/2012 06/21/2014 Cervicalgia 06/21/2014 Chronic neck pain 02/28/2024 documented as of this encounter (statuses as of 04/14/2024) Immunizations Name Administration Dates Next Due Pneumococcal Polysaccharide PPV23 (Pneumovax) 01/06/2008(Deferred: Patient Refused) TD - Tetanus/Diptheria (ADULT) 01/06/2008(Deferr ed: Patient Refused) documented as of this encounter Social History Tobacco Use Types Packs/Day Years Used Date Smoking Tobacco: Some Days Pipe Smokeless Tobacco: Never Tobacco Cessation:Ready to Q uit: Not Asked; Counseling Given: Not Answered Comments:quit 1998 - cigarettes Does smoke a pipe once in a [...] Sign Reading Time Taken Comments Blood Pressure 158/86 04/14/2024 1:36 PM EST Pulse 103 04/14/2024 1:36 PM EST Temperature - - Respiratory Rate 16 04/14/2024 1:36 PM EST Oxygen Saturation 96% 04/14/2024 1:36 PM EST Inhaled Oxygen Concentration - - Weight 75.8 kg (167 lb) 04/14/2024 1:36 PM EST Height 180.3 cm (5' 11") 04/14/2024 1:36 PM EST Body Mass Index 23.29 04/14/2024 1:36 PM EST documented in this encounter Patient Instructions * Patient Instructions* Matilde Cooley MD - 04/14/2024 2:05 PM EST To Soften Ear Wax: -- Buy sfbm-apz-ifbqnnr Debrox. This is a mix of hydrogen peroxide and water. -- Put several drops in each ear twice a day. This will soften the wax. -- After 5-7 days softened wax should flow out of the ear where you can wipe it away with a soft cloth. We are checking labs today to make sure sodium and electrolytes are okay. Please increase your losartan to 100mg daily. I sent in a new prescription to the [facility] in [place]. documented in this encounter Progress Notes * Matilde Cooley MD - 04/14/2024 1:45 PM EST Images from the original note were not included. Subjective Giovanny Mcginnis Jr. is a 83 year old male that presents for Acute (Patient presents in office todayfor concerns with high BP (went back down to the normal) -- patient states he just feels off.) History of Present Illness The patient, with a history of hypertension, presents with fluctuating blood pressure and neck symptoms. He describes the neck stiffness as starting at the back of the head and progressing upwards, causing discomfort above the eyes. The neck stiffness is associated with a snapping sensation. He haspreviously sought specialist care for this issue, with no significant findings on imaging. The neckstiffness often precedes migraines, characterized by visual disturbances lasting approximately ten minutes. The neck and headache symptoms are not new. The patient also reports episodes of feeling faint, particularly upon standing. This prompted him to check his blood pressure at home, which was found to be elevated. (see phone encounter) He took anadditional dose of losartan, which helped to lower his blood pressure. He denies any associated visual changes or instability during these episodes. The patient also reports morning nausea, which resolves spontaneously. He denies any changes in appetite, vomiting, constipation, or diarrhea. He has a history of peptic ulcer disease and avoids alcohol due to previous adverse reactions. He occasionally smokes a pipe but denies any other substance use. Was hospitalized in February for pneumonia. Had mild hyponatremia during that timeframe. Current medications and allergies reviewed. Past medical history and problem list reviewed. Objective Vitals: 04/14/24 1336 Pulse: 103 Resp: 16 SpO2: 96% BP: 158/86 BMI: 23.3 Wt Readings from Last 3 Encounters: 04/14/24 167 lb (75.8 kg) 03/08/24 163 lb (73.9 kg) 02/28/24 165 lb (74.8 kg) Pulse Readings from Last 3 Encounters: 04/14/24 103 03/08/24 94 02/28/24 84 BP Readings from Last 3 Encounters: 04/14/24 158/86 03/08/24 138/82 02/28/24 122/80 Physical Exam Vitals and nursing note reviewed. Constitutional: General: He is not in acute distress. Appearance: Normal appearance. He is not ill-appearing. HENT: Head: Normocephalic and atraumatic. Right Ear: There is impacted cerumen. Left Ear: There is impacted cerumen. Nose: Nose normal. Mouth/Throat: Mouth: Mucous membranes are moist. Pharynx: Oropharynx is clear. No oropharyngeal exudate. Eyes: General: No scleral icterus. Right eye: No discharge. Left eye: No discharge. Extraocular Movements: Extraocular movements intact. Conjunctiva/sclera: Conjunctivae normal. Pupils: Pupils are equal, round, and reactive to light. Neck: Thyroid: No thyroid mass, thyromegaly or thyroid tenderness. Cardiovascular: Rate and Rhythm: Regular rhythm. Tachycardia present. Heart sounds: No murmur heard. Comments: HR 100s Pulmonary: Effort: Pulmonary effort is normal. Breath sounds: Normal breath sounds. Musculoskeletal: Right lower leg: No edema. Left lower leg: No edema. Lymphadenopathy: Cervical: No cervical adenopathy. Skin: General: Skin is warm and dry. Neurological: General: No focal deficit present. Mental Status: He is alert. Psychiatric: Mood and Affect: Mood normal. Behavior: Behavior normal. I have reviewed the following results: Results Lipid Panel, Hemoglobin A1C, CBC, BMP, and B12 Assessment and Plan Assessment & Plan Hypertension Elevated blood pressure readings at home and in clinic. -Increase Losartan dose to 100mg, new Rx sent -labs today given HCTZ and prior hyponatremia Cervicalgia Chronic neck stiffness and snapping sensation. No evidence of bone pathology from previous evaluations. -Continue current management Transient Visual Disturbances Reports brief episodes of visual disturbances, described as "waves and lines," lasting about 10 minutes. These episodes are self-resolving and may be associated with migraines. -known migraines, nothing new Cerumen Impaction Reports history of cerumen impaction in the ears. Previous treatment with prescription drops. -Recommend qoet-ugy-nrhaviw Debrox drops for cerumen removal. HTN, goal below 130/80 (Primary) - Losartan Potassium 100 MG Oral Tablet (Cozaar); Take 1 Tablet by mouth in the morning. Chronic kidney disease, stage 2 (mild) Tachycardia - BASIC METABOLIC PANEL; Future; Expected date: 04/14/2024 - CBC WITH WBC DIFFERENTIAL AND ANEMIA REFLEX WORKUP; Future; Expected date: 04/14/2024 - TSH WITH FREE T4 IF INDICATED; Future; Expected date: 04/14/2024 Hypercalcemia - 25-HYDROXY VITAMIN D; Future; Expected date: 04/14/2024 Migraine with aura and without status migrainosus, not intractable Wrap-Up Follow Up: Return for Labs Today. | For: Labs Today Time: I spent a total of 20-29 minutes (exact time 27 mins) on the date of service in preparation, delivery, and documentation of the care provided to Giovanny Mcginnis . excluding any time spent in the performance of separately billed services. Text in this note was generated using an ambient documentation service. I discussed the use of a device to record and summarize our discussion today. All persons present during the encounter consented to its use. documented in this encounter Nursing Notes * Maite Garcia MED ASSIST - 04/14/2024 1:33 PM EST The patient has been properly identified by confirmation of name and date of . Chief Complaint Patient presents with Acute Patient presents in office today for concerns with high BP (went back down to the normal) -- patient states he just feels off. documented in this encounter Plan of Treatment Upcoming Encounters Date Type Department Care Team (Late st Contact Info) Description 08/28/2024 11:40 AM EDT Office Visit Family [facility] [address] [place] [address] Enrique Aleman MD [address] [place] [address] Pending Results Name Type Priority Associated Diagnoses Date /Time CBC WITH WBC DIFFERENTIAL AND ANEMIA REFLEX WORKUP Lab Routine Tachycardia 04/14/2024 2:15 PM EST TSH WITH FREE T4 IF INDICATED Lab Routine Tachycardia 04/14/2024 2:15 PM EST 25-HYDROXY VITAMIN D Lab Routine Hypercalcemia 04/14/2024 2:15 PM EST Scheduled Orders Name Type Priority Associated Diagnoses Orde r Schedule CBC WITH WBC DIFFERENTIAL AND ANEMIA REFLEX WORKUP Lab Routine Tachycardia Expected: 04/14/2024, Expires: 04/14/2025 TSH WITH FREE T4 IF INDICATED Lab Routine Tachycardia Expected: 04/14/2024, Expires: 04/14/2025 25-HYDROXY VITAMIN D Lab Routine Hypercalcemia Expected: 04/14/2024, Expires: 04/14/2025 Health Maintenance Due Date Last Done Comments DISCUSS TOBACCO CESSATION (REFER TO SMARTSET #3298) 1940 Pneumococcal Vaccine: 65+ Years (1 of 2 - PCV) 1948 Albumin/Creatinine Ratio 1960 DTap/Tdap Vaccines (1 - Tdap) 1961 Zoster Vaccines (1 of 2) 1992 Adult Wellness Visit 2008 Depression Monitoring 09/20/2019 09/19/2018 Diabetic Eye Exam 09/23/2021 09/23/2020 Diabetic Foot Exam 10/07/2021 10/07/2020 COVID-19 Vaccine ( - season) 2024 Influenza Vaccine (FLU shot) (#1) 2024 HbA1c 08/28/2024 02/28/2024, 08/16, 02/01/2017 GFR 04/14/2025 04/14/2024, 02/14, 09/23/2020, Additional [...] Not on filedocumented as of this encounter Results * (ABNORMAL) BASIC METABOLIC PANEL (04/14/2024 2:15 PM EST) BUN 13 6 - 20 mg/dL 04/14/2024 2:37 PM EST [facility] CREATININE 1.1 0.6 - 1.2 mg/dL 04/14/2024 2:37 PM EST [facility] EGFR 71 >=60 mL/min 04/14/2024 2:37 PM EST [facility] Comment:eGFR is calculated b ased on the CKD-EPI 2020 equation. SODIUM 136 135 - 146 mmol/L 04/14/2024 2:37 PM EST [facility] POTASSIUM 4.0 3.5 - 5.1 mmol/L 04/14/2024 2:37 PM EST [facility] CHLORIDE 101 98 - 107 mmol/L 04/14/2024 2:37 PM EST [facility] CO2 20(L) 22 - 32 mmol/L 04/14/2024 2:37 PM EST [facility] ANION GAP 15 7 - 15 mmol/L 04/14/2024 2:37 PM EST [facility] GLUCOSE 151(H) 70 - 120 mg/dL 04/14/2024 2:37 PM EST [facility] CALCIUM 10.4(H) 8.4 - 10.2 mg/dL 04/14/2024 2:37 PM EST [facility] Blood Venous blood specimen / Unknown Venipuncture / Unknown 04/14/2024 2:15 PM EST 04/14/2024 2:15 PM EST Matilde Cooley MD LAB BLOOD ORDERABLES F inal Result [facility] [address] [place] [address] documented in this encounter Visit Diagnoses Diagnosis HTN, goal below 130/80- Primary Unspecified essential hypertension Chronic kidney disease, stage 2 (mild) Tachycardia Tachycardia, unspecified Hypercalcemia Migraine with aura and without status migrainosus, not intractable Migraine with aura, without mention of intractable migraine without mention of status migrainosus documented in this encounter Care Teams Business Systems Consultant Relationship Specialty Start Date End Date Enrique Aleman MD [address] [place] [address] PCP - General Family Medicine 10/23/20 documented as of this encounter
--- OUTSIDE RECORDS SUMMARY | 2024-08-05 14:09 | External Medical Summary ---
Author Name Unknown Address Unknown Organization [id number] [place] [address] [facility] [place] [address] Laboratory Report Ordering Provider Test Date Status CHRISTIANA HONG 04/14/2024 14:15:59 Final Observation Date Value Abnormality Reference (Units ) Status SYNC LEUKOCYTES IN BLOOD BY AUTOMATED COUNT 04/14/2024 14:15:59 9.39 4.00-10.80 (K/uL) Final Segs 04/14/2024 14:15:59 67.1 40.0-75.0 (%) Final Lymphs % 04/14/2024 14:15:59 22.9 18.0-42.0 (%) Final Monos 04/14/2024 14:15:59 7.1 1.0-11.0 (%) Final Eosinophils 04/14/2024 14:15:59 2.0 0.0-6.0 (%) Final Basos 04/14/2024 14:15:59 0.7 0.0-2.0 (%) Final Immature Granulocyte, Percent 04/14/2024 14:15:59 0.2 0.0-2.0 (%) Final Absolute Segs 04/14/2024 14:15:59 6.29 1.80-7.70 (K/uL) Final Lymphs, absolute 04/14/2024 14:15:59 2.15 1.00-4.80 (K/ul) Final Monos, Abs 04/14/2024 14:15:59 0.67 0.00-1.10 (K/uL) Final Eos, Abs 04/14/2024 14:15:59 0.19 0.00-0.70 (K/uL) Final Basos, Abs 04/14/2024 14:15:59 0.07 0.00-0.20 (K/uL) Final Immature Granulocytes, Number 04/14/2024 14:15:59 0.02 0.00-0.20 (K/uL) Final Performing Location [facility] [place] [address] [facility] [address]
--- OUTSIDE RECORDS SUMMARY | 2024-08-05 14:09 | External Medical Summary ---
Author Name Unknown Address Unknown Organization [id number][place] [place] [address] [place] [address] Laboratory Report Ordering Provider Test Date Status MANUEL NEVILLE 02/28/2024 12:55:36 Final Observation Date Value Abnormality Reference (Units ) Status Vitamin B12 02/28/2024 12:55:36 [phone] (pg/mL) Final Performing Location [facility] [place] [address] [place] [address]
--- OUTSIDE RECORDS SUMMARY | 2024-08-05 14:09 | External Medical Summary ---
Author Name Unknown Address Unknown Organization [id number]:[facility] [place] [address] [facility] [address] [place] [address] Laboratory Report Ordering Provider Test Date Status MANUEL NEVILLE 02/28/2024 12:55:36 Final Observation Date Value Abnormality Reference (Units ) Status Triglyceride 02/28/2024 12:55:36 190 Above high normal <=174 (mg/dL) Final Triglyceride Reference Range s (mg/dL):
<150 Acceptable
150-174 Borderline high
175-499 High
>=500 Very high Cholesterol 02/28/2024 12:55:36 200 Above high normal <200 (mg/dL) Final Total Cholesterol Reference Ranges (mg/dL):
<200 Desirable
200-239 Borderline high
>=240 High HDL 02/28/2024 12:55:36 36 Below low normal >39 (mg/dL) Final HDL Cholesterol Reference Ra nges (mg/dL):
>=60 High (Desirable)
<50 Low (Undesirable) For Females
<40 Low (Undesirable) For Males NON-HDL CHOLESTEROL 02/28/2024 12:55:36 164 Above high normal <=159 (mg/dL) Final Non-HDL Cholesterol Referenc e Range (mg/dL):
<100 Target level for high risk ASCVD patient
<130 Optimal for general population
130-159 Near optimal for general population
160-189 Borderline High
190-219 High
>=220 Very High LDL, (calculated) 02/28/2024 12:55:36 126 <= 129 (mg/dL) Final LDL Cholesterol Reference Ra nges (mg/dL):
<70 Target level for high risk ASCVD patient
<100 Optimal for general population
100-129 Near optimal for general population
130-159 Borderline high
160-189 High
>=190 Very high Performing Location [facility] [place] - [address] [facility] [address]
--- OUTSIDE RECORDS SUMMARY | 2024-08-05 14:09 | External Medical Summary | Summary of Care ---
Author Name Unknown Organization [facility] Address [address] [facility] [place] [address] Phone [phone] Care Team Providers Care Distribution Center Assistant Name Role Phone Enrique Aleman MD Primary Care Provider +1 -[phone] Reason for Visit * Reason Onset Date Comments Med Request 02/25/2024 Encounter Details Date Type Department Care Team (Late st Contact Info) Description 02/25/[address] [facility] [address] [place] [address] Enrique Aleman MD [address] [place] [address] Med Request (/) Allergies Active Allergy Reactions Criticality Noted Date Comments Penicillins Low 06/23/2006 Hives documented as of this encounter (statuses as of 02/27/2024) Medications Medication Sig Dispensed Refills Start Date [...] in the morning. 90 Capsule 05/25/2023 Active hydroCHLOROthiazid e 12.5 MG Oral TabletIndications: [...] VISIT AND LABS 30 Tablet 01/27/2024 Active Azithromycin 250 MG Oral Tablet (Zithromax) Take 1 Tablet by mouth in the morning. 02/25/2024 02/27/2024 Active Losartan Potassium 50 MG Oral Tablet (Cozaar) Take 1 Tablet by mouth in the morning. 90 Tablet 02/27/2024 Active Losartan Potassium 50 MG Oral Tablet (Cozaar) Take 1 Tablet by mouth in the morning. 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..] encounter Miscellaneous Notes * Telephone Encounter - Ceci Champagne RN - 02/25/2024 1:09 PM EDT The script sent to the pharmacy only had 3 pills instead of the usual 30 pills given at fl. Pt has an appt to follow up with you on Wednesday * Telephone Encounter - Seema Mares CPhT - 02/25/2024 9:26 AM EDT Patient calling , he just got out of the hospital yesterday and stated they increased his Losartan to 50mg a day. Patient is calling in for a new script. Please send script or advise patient. Thank you, Seema Mares CPhT Senior Electrical Designer [facility] 02/25/2024,9:27 AM documented in this encounter Plan of Treatment Upcoming Encounters Date Type Department Care Team (Late st Contact Info) Description 02/28/2024 12:20 PM EDT Office Visit Family Practice [facility] [address] [place] [address] Enrique Aleman MD [address] [place] [address] Health Maintenance Due Date Last Done Comments [...] filedocumented as of this encounter Care Teams Distribution Center Assistant Relationship Specialty Start Date End Date Enrique Aleman MD [address] [place] [address] PCP - General Family Medicine 10/23/20 documented as of this encounter
--- OUTSIDE RECORDS SUMMARY | 2024-08-05 14:09 | External Medical Summary | Summary of Care ---
Author Name Unknown Organization [facility] Address [address] [place] [address] Phone [phone] Care Team Providers Care Classification Counselor Name Role Phone Enrique Aleman MD Primary Care Provider [phone] Reason for Visit * Reason Onset Date Comments Hospital Follow-Up 02/25/2024 ASTRID call [facility] 02/23 Encounter Details Date Type Department Care Team (Late st Contact Info) Description 02/25/2024 Telephone Family Practice [facility] [address] [facility] [place] [address] Ceci Champagne, DAMIEN Hospital Follow-Up (ASTRID call [facility] 02/23) Allergies Active Allergy Reactions Criticality Noted Date Comments Penicillins Low 06/23/2006 Hives documented as of this encounter (statuses as of 02/25/2024) Medications Medication Sig Dispensed Refills Start Date [...] Tablet by mouth in the morning. 02/24/2024 Active Losartan Potassium 25 MG Oral Tablet (Cozaar)Indication s:HTN, goal below 140/90 Take 1 Tablet by mouth in the morning. 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..] Encounter - Ceci Champagne RN - 02/25/2024 12:56 PM EDT Transitions of Care Note Reason for Referral:Recent Admission Phone visit for follow up: ASTRID Admitted to: [facility], Date: 02/22 Discharged to: home, Date: 02/23 Diagnosis driving hospitalization: Musculoskeletal chest pain possible basilar pneumonia hypertension hyponatremia secondary to HCTZ Source/Contact: Patient SUBJECTIVE Consent: Verbal consent for review of hospital discharge: Yes REVIEW OF SYSTEMS Patient/Other Reports: Current patient/caregiver problems or concerns: none at this time CV: Denies problems Pulmonary: Denies problems Chills/Sweats/Fever:Denies chills/sweats Denies fever Appetite:Denies problems such as nausea, vomiting, burning, decreased appetite Current diet: as before Bowel: denies problems Bladder: denies problems Wound (If applicable): N/A Pain:Denies Sleep:Denies problems FUNCTIONAL STATUS: ADL'S: Needs Assistance With:N/A as pt is independent IADL'S: Needs Assistance With:N/A as pt is independent Cognitive and Mental Health: denies problems, alert and oriented x 3, and able to communicate, understand instructions, process information. MEDICATION RECONCILIATION Medications: Discharge med list reviewed with patient or caregiver New medication(s) filled since hospitalization- Zithromax Changed medication(s) since hospitalization losartan Discontinued medication(s) since hospitalization- hctz Reports all medications taken as prescribed. Denies side effects OBJECTIVE ASSESSMENT Medication Risk Assessment: No risks identified Did patient fail outpatient treatment? No Discharge instructions available for review? Yes PLAN Symptom Monitoring Interventions:Member/caregiver education - signs and symptoms to contact PrimaryCare (DO NOT DELETE-Three florian symptoms patient is to report to PCP) 1. SOB 2. Chest pain 3. fever Individual Pension ConsultantOlericulture Professor of Care interventions/Action Plan: Medication reconciliation and 5 - 7 day follow-up with PCP in place - Date: 02/27 Educated on role of ASTRID completed with patient/caregiver. Educated patient/caregiver on patient right to have input on ASTRID plan of care. Verification of Home Health/DME if indicated: NO Identified Care Gaps: Yes Care Gaps closed this call: Appointment made or confirmed, Medication adherence, and Transition of Care follow-up communication Re-evaluation of Plan of Care and progress towards goals achievement: Patient education this visit: Verbal, as above Plan to follow-up as previously scheduled, instructed to call Primary Care Provider with change in symptoms or as needed before next follow-up, discharge needs met, verbalizes understanding and agrees with plan. Ceci Champagne RN documented in this encounter Plan of Treatment Upcoming Encounters Date Type Department Care Team (Late st Contact Info) Description 02/28/2024 12:20 PM EDT Office Visit Family Practice [facility] [address] [place] [address] Enrique Aleman MD [address] [place] [address] Health Maintenance Due Date Last Done Comments [...] filedocumented as of this encounter Care Teams Classification Counselor Relationship Specialty Start Date End Date Enrique Aleman MD [address] [facility] [place] [address] PCP - General Family Medicine 10/23/20 documented as of this encounter
--- OUTSIDE RECORDS SUMMARY | 2024-08-05 14:09 | External Medical Summary ---
Author Name Unknown Address Unknown Organization [id number]:LABORATORY [facility] [place] - [address] [place] [address] Laboratory Report Ordering Provider Test Date Status CHRISTIANA HONG 04/14/2024 14:15:59 Final Deficient: <20 ng/mL
Ins ufficient: 20-29 ng/mL
Recommended/Optimum:30-50 ng/mL

Vitamin D intoxication is rare. If suspicious of Vitamin D toxicity, evaluation of serum Calcium and PTH is recommended. Observation Date Value Abnormality Reference (Units ) Status 25-OH Vitamin D total 04/14/2024 14:15:59 28 >19 (ng/mL) Final Performing Location LABORATORY [facility] [place] - [address] [place] [address]
--- OUTSIDE RECORDS SUMMARY | 2024-08-05 14:09 | External Medical Summary | Summary of Care ---
Author Name Unknown Organization [facility] Address [address] [facility] [place] [address] Phone [phone] Care Team Providers Care Aquaculture Worker Name Role Phone Enrique Aleman MD Primary Care Provider [phone] Reason for Visit * Reason Comments Outpatient Testing Encounter Details Date Type Department Care Team (Late st Contact Info) Description 04/14/2024 2:10 PM EST Laboratory Laboratory, [facility] [address] [facility] [place] [address] [facility] [address] [facility] [place] [address] Tachycardia; Hypercalcemia Allergies Active Allergy Reactions Criticality Noted Date [...] hemoglobin A1c goal of less than 8.0% ([facility]) Take 1 Tablet by mouth in the morning. 90 Tablet 3 4 Active Omeprazole 40 MG Oral Capsule Delayed Release (PriLOSEC) Take 1 Capsule by mouth in the morning. 90 Capsule 2 4 Active Meclizine HCl 25 MG Oral Tablet (Antivert) Take 1 Tablet by mouth 3 times a day as needed for Dizziness. 30 Tablet 1 4 Active Neomycin-Polymy susan-HC 3.5-90132-8 Otic Solution Administer 4 Drops into ears [...] 11:40 AM EDT Office Visit Family Practice [facility] [address] [place] [address] Enrique Aleman MD [address] [place] [address] Pending Results Name Type Priority Associated Diagnoses Date /Time CBC WITH WBC DIFFERENTIAL AND ANEMIA REFLEX WORKUP Lab Routine Tachycardia 04/14/2024 2:15 PM EST TSH WITH FREE T4 IF INDICATED Lab Routine Tachycardia 04/14/2024 2:15 PM EST 25-HYDROXY VITAMIN D Lab Routine Hypercalcemia 04/14/2024 2:15 PM EST ANEMIA CBC Lab Routine Tachycardia 04/14/2024 2:15 PM EST DIFFERENTIAL, AUTOMATED Lab Routine Tachycardia 04/14/2024 2:15 PM EST ANEMIA REFLEX CHEMISTRY HOLD Lab Routine Tachycardia 04/14/2024 2:15 PM EST Health Maintenance Due Date Last Done Comments DISCUSS TOBACCO CESSATION (REFER TO SMARTSET #6122) 1940 Pneumococcal Vaccine: 65+ Years (1 of [...] Not on filedocumented as of this encounter Procedures Procedure Name Priority Date/Time Associated Diagnosis Comments BASIC METABOLIC PANEL STAT 04/14/2024 2:15 PM EST Tachycardia documented in this encounter Results * (ABNORMAL) BASIC METABOLIC [...] 2:15 PM EST 04/14/2024 2:15 PM EST us Matilde Cooley MD LAB BLOOD ORDERABLES F inal Result LABORATORY [facility] [id number] [place] [address] documented in this encounter Visit Diagnoses Diagnosis Tachycardia Tachycardia, unspecified Hypercalcemia documented in this encounter Care Teams Aquaculture Worker Relationship Specialty Start Date End Date Enrique Aleman MD [address] [place] [address] PCP - General Family Medicine 10/23/20 documented as of this encounter
--- OUTSIDE RECORDS SUMMARY | 2024-08-05 14:09 | External Medical Summary ---
Author Name Unknown Address Unknown Organization [id number]:LAB[facility]ATORY [facility] [place] - [address] [place] [address] Laboratory Report Ordering Provider Test Date Status HALCHRISTIANA 04/14/2024 14:15:59 Final Observation Date Value Abnormality Reference (Units ) Status TSH 04/14/2024 14:15:59 3.15 0.27-4.20 (uIU/mL) Final Performing Location LABORATORY [facility] [place] - [address] [place] [address]
[2024-08-05] MEDS: ASPIRIN CHEW 324 MG PO STA (14:31)
[2024-08-05 14:41] LABS: Basophils # (auto) 0.09 K/uL (0.00-0.20); Eosinophils # (auto) 0.28 K/uL (0.00-0.50); Hematocrit (blood only) 51.1 % (42.0-52.0); Hemoglobin 17.1 g/dl (14.0-18.0); Immature Granulocytes # (auto) 0.04 K/uL (0.01-0.20); Immature Granulocytes % (auto) 0.4 %; Lymphocytes # (auto) 3.01 K/uL (1.20-3.40); Lymphocytes % (auto) 32.1 %; Mean Corpuscular Hemoglobin 29.5 pg (25.0-34.0); Mean Corpuscular Hgb Conc 33.5 g/dL (32.0-36.0); Mean Corpuscular Volume 88.1 fL (80.0-100.0); Mean Platelet Volume 10.7 fL (9.4-12.4); Monocytes # (auto) 0.59 K/uL (0.11-0.59); Monocytes % (auto) 6.3 %; Neutrophils # (auto) 5.36 K/uL (1.40-6.50); Neutrophils % (auto) 57.2 %; Platelet Count 300 K/uL (130-400); RDW Standard Deviation 41.7 fL (36.4-46.3); White Blood Count 9.37 K/ul (4.8-10.8)
[2024-08-05 14:42] LABS: iSTAT Creatinine 1.4 mg/dl (0.6-1.3); iSTAT Hemoglobin 17.3 g/dl (14.0-18.0); iSTAT Ionized Calcium 1.24 mmol/l (1.12-1.32)
[2024-08-05] MEDS: LORazepam 2 MG/1 ML VIAL IV STA (14:43)
--- NOTE | 2024-08-05 14:49 | History & Physical Report ---
Date of Service August 05, 2024 Assessment & Plan (1) STEMI (ST elevation myocardial infarction): (2) Type 2 diabetes mellitus: (3) Essential hypertension: (4) GERD (gastroesophageal reflux disease): Plan This is an 83 y/o male with HTN, DM2, GERD, and tobacco use who presents to the ED from home with chest discomfort. Initial EKG in the ED personally reviewed and showed NSR with subtle ST segment elevation in the anterior leads and ST depression in the inferior leads. Heart alert was called by ED and we were called for admission. At the time of my initial evaluation, labs and imaging were pending. Pt was extremely anxious about possible procedure and was initially refusing cardiac cath. However, after extensive discussion of his condition and possible treatments, pt was agreeable to discussing procedure with interventional cardiology and ultimately agreed to the procedure. #STEMI - Transferred to cardiac cath lab manager for possible intervention - spoke with caustic liquor maker, Dr. Wheeler, after the procedure. Pt underwent successful PCI of small proximal LAD with single ROSA and tolerated procedure well. - Admit to PCU for observation post-procedure - Trend troponin though anticipate elevation due to STEMI, repeat EKG in AM and prn chest pain - Lipid panel, A1c in the AM - CBC, BMP in the AM - Loaded with heparin and Brilinta in the cath lab manager - will start clopidogrel tomorrow - Update ECHO - Continue aspirin daily - Added statin #Hypertension - Changing to losartan 25 mg BID - Add beta harika #Type 2 Diabetes - Insulin sliding scale - Hold metformin - BSG ACHS - Diabetic diet - A1c as above #GERD - Due to addition of clopidogrel, will change PPI from omeprazole to pantoprazle and continue at d/c Pt seen and reviewed with collaborating physician, Dr. Schulz. Plan of care discussed and as outlined above Code status: full code Pt's family also voice concerns that pt has possible inguinal hernias causing obstructive urinary symptoms with incontinence but pt has been refusing to allow anyone to look at these. Will need f/u at discharge with PCP to address. Tomeka Falcon PA-C Admission and Anticipated Discharge Date Admission Date: Time spent evaluating patient, direct bedside care, chart review, placing orders, interpretation of diagnostic studies, discussion with consultants, patient, and family members, as well as other required patient management activities is 75 minutes. History of Present Illness Chief Complaint: chest pain Primary Care Provider: Enrique Aleman MD This is an 83 y/o male with HTN, DM2, GERD, and tobacco use who presents to the ED from home with chest discomfort. Pt reports several weeks to months of feeling poorly overall with decreased capacity to be active. Today, he was picking up sticks and branches in his yard when he had the gradual onset of chest "soreness" that seemed to radiate to both of his shoulders but more on the right. He had associated nausea, diaphoresis, and dizziness. The discomfort gradually worsened so his family convinced him to come to the ED for evaluation. In the ED, heart alert was called after initial EKG showed possible STEMI. His pain started to ease off in the ED but was present on my evaluation though improving. He also noted ongoing dizziness and mild nausea. No vomiting. He has noted some mild [place] at home over the last several weeks but denies dyspnea at present. He was admitted to [facility] in February 2024 with substernal chest discomfort, not relieved by nitro. Serial troponins were negative that admission with no acute EKG changes. ECHO showed borderline concentric LVH, normal LV wall motion, normal LV systolic function (EF 60-65%), no significant valvular disease. He was diagnosed with and treated for pneumonia. Pt reports he is usually fairly active. He smokes a pipe but does not inhale. He has a family history of CAD - father had cardiac stents, bypass surgery. Allergies Allergy/AdvReac Type Severity Reaction Status Date / Time Penicillins Allergy Mild Verified 08/05/24 15:03 penicillamine Allergy Unknown Unknown - Unverified 08/05/24 15:03 On file / [facility] Home Medications Medication Instructions Recorded Confirmed Type metformin 500 mg tablet,extended 500 mg PO DAILY 02/23/24 08/05/24 History release 24 hr omeprazole 40 mg capsule,delayed 40 mg PO DAILY 02/23/24 08/05/24 History release aspirin 81 mg tablet,delayed 81 mg PO DAILY 08/05/24 08/05/24 History release losartan 100 mg tablet 100 mg PO DAILY 08/05/24 08/05/24 History Past Med/Surg History Problem List STEMI (ST elevation myocardial infarction) Medical History GERD (gastroesophageal reflux disease) Type 2 diabetes mellitus Essential hypertension Family History Other Heart disease Social History Smoking Status: Current every day smoker Tobacco Type: Pipe Second Hand Exposure: No; Do You Dip or Chew Tobacco: No; Tobacco Cessation Education Requested by Patient: No Hx Alcohol Use: No Hx Substance Use: No Preferred Language: Ukrainian Communication Ability: Effective Communication Ability Comment: hard of hearing Heel Slicker Required: No Beliefs That Will Affect Care: None Current Living Situation: Spouse Other Information That Helps Us Care for You: No Feels Safe at Home: Yes Safety Concerns: Feels Safe At This Time Assistive Devices: Glasses Review of Systems Review of Systems: All systems reviewed & are unremarkable except as noted in Subjective Physical Exam Physical Exam: General: awake, alert, NAD but very anxious HEENT: no scleral icterus, moist oral mucosa Neck: supple, trachea midline Heart: RRR, No M/G/R Lungs: CTA bilaterally Abdomen: soft, +BS Extremities: no significant pedal edema, distal pulses intact and equal Skin: warm, dry, no cyanosis or jaundice Neurologic: Ox3, moving all extremities without focal deficits, no confusion or dysarthria Results & Data Results & Data Vital Signs (Past 12 Hours) Vital Signs Temp Pulse Pulse Resp BP BP Pulse Ox 08/05/24 14:42 98 H 24 187/114 H 96 08/05/24 14:33 100 H 16 177/116 H 95 08/05/24 14:30 70 08/05/24 14:24 82 22 180/85 H 93 08/05/24 14:13 103 H 18 95 08/05/24 14:13 101 H 18 182/112 H 95 08/05/24 14:13 95 08/05/24 14:10 36.7 C 90 22 162/100 H 93 O2 Del Method 08/05/24 14:42 Room Air 08/05/24 14:33 Room Air 08/05/24 14:30 08/05/24 14:24 Room Air 08/05/24 14:13 Room Air 08/05/24 14:13 Room Air 08/05/24 14:13 Room Air 08/05/24 14:10 Room Air Laboratory Results Lab Results 08/05/24 08/05/24 08/05/24 Range/Units 14:20 14:31 15:34 WBC 9.37 (4.8-10.8) K/ul RBC 5.80 (4.70-6.10) M/uL Hgb 17.1 (14.0-18.0) g/dl POC Hgb 17.3 (14.0-18.0) g/dl Hct 51.1 (42.0-52.0) % POC Hct 51 (42-52) % MCV 88.1 (80.0-100.0) fL MCH 29.5 (25.0-34.0) pg MCHC 33.5 (32.0-36.0) g/dL RDW Std Deviation 41.7 (36.4-46.3) fL RDW Coeff of Jose 13.0 (11.5-14.5) % Plt Count 300 (130-400) K/uL MPV 10.7 (9.4-12.4) fL Immature Gran % (Auto) 0.4 % Neut % (Auto) 57.2 % Lymph % (Auto) 32.1 % Person % (Auto) 6.3 % Eos % (Auto) 3.0 % Baso % (Auto) 1.0 % Neut # (Auto) 5.36 (1.40-6.50) K/uL Lymph # (Auto) 3.01 (1.20-3.40) K/uL Person # (Auto) 0.59 (0.11-0.59) K/uL Eos # (Auto) 0.28 (0.00-0.50) K/uL Baso # (Auto) 0.09 (0.00-0.20) K/uL Immature Gran # (Auto) 0.04 (0.01-0.20) K/uL PT 10.5 (9.0-12.0) Seconds INR 1.0 (0.9-1.1) APTT 24 (21-31) Seconds PTT Ratio 0.9 Activ Coag Time Kaolin 360 H (94-140) SECONDS POC Sodium 139 (135-144) mmol/L Sodium 138 (136-145) mmol/L POC Potassium 4.0 (3.3-5.0) mmol/L Potassium 4.1 (3.5-5.1) mmol/L POC Chloride 102 (101-112) mmol/L Chloride 103 (98-107) mmol/L Carbon Dioxide 27 (21-32) mmol/L POC Total CO2 24 (24-31) mmol/L Anion Gap 8 (3-11) POC Anion Gap 18.0 (16-25) mmol/L POC BUN 16 (7-18) mg/dl BUN 15 (6-23) mg/dl Creatinine 1.34 (0.6-1.4) mg/dl POC Creatinine 1.4 H (0.6-1.3) mg/dl Est Cr Clr Drug Dosing 46.0 ml/min eGFR 53.22 BUN/Creatinine Ratio 11.2 (10-20) Glucose 162 H (70-99(Fasting)) mg/dl POC Glucose (other) 156 H (70-99) mg/dl Calcium 10.4 H (8.6-10.3) mg/dl POC Ioniz Calcium Natan 1.24 (1.12-1.32) mmol/l Magnesium 1.8 (1.7-2.4) mg/dl Total Bilirubin 0.7 (0.2-1.0) mg/dl AST 19 (13-39) U/L ALT 19 (7-52) U/L Alkaline Phosphatase 71 (34-104) U/L Troponin I High Sens 66.1 H* (0-20) pg/ml Total Protein 7.7 (6.0-8.3) gm/dl Albumin 4.6 (3.4-5.0) gm/dl Globulin 3.1 (2.5-4.0) gm/dl Albumin/Globulin Ratio 1.5 (0.9-2) 08/05/24 Range/Units 16:44 WBC (4.8-10.8) K/ul RBC (4.70-6.10) M/uL Hgb (14.0-18.0) g/dl POC Hgb (14.0-18.0) g/dl Hct (42.0-52.0) % POC Hct (42-52) % MCV (80.0-100.0) fL MCH (25.0-34.0) pg MCHC (32.0-36.0) g/dL RDW Std Deviation (36.4-46.3) fL RDW Coeff of Jose (11.5-14.5) % Plt Count (130-400) K/uL MPV (9.4-12.4) fL Immature Gran % (Auto) % Neut % (Auto) % Lymph % (Auto) % Person % (Auto) % Eos % (Auto) % Baso % (Auto) % Neut # (Auto) (1.40-6.50) K/uL Lymph # (Auto) (1.20-3.40) K/uL Person # (Auto) (0.11-0.59) K/uL Eos # (Auto) (0.00-0.50) K/uL Baso # (Auto) (0.00-0.20) K/uL Immature Gran # (Auto) (0.01-0.20) K/uL PT (9.0-12.0) Seconds INR (0.9-1.1) APTT (21-31) Seconds PTT Ratio Activ Coag Time Kaolin (94-140) SECONDS POC Sodium (135-144) mmol/L Sodium (136-145) mmol/L POC Potassium (3.3-5.0) mmol/L Potassium (3.5-5.1) mmol/L POC Chloride (101-112) mmol/L Chloride (98-107) mmol/L Carbon Dioxide (21-32) mmol/L POC Total CO2 (24-31) mmol/L Anion Gap (3-11) POC Anion Gap (16-25) mmol/L POC BUN (7-18) mg/dl BUN (6-23) mg/dl Creatinine (0.6-1.4) mg/dl POC Creatinine (0.6-1.3) mg/dl Est Cr Clr Drug Dosing ml/min eGFR BUN/Creatinine Ratio (10-20) Glucose (70-99(Fasting)) mg/dl POC Glucose (other) (70-99) mg/dl Calcium (8.6-10.3) mg/dl POC Ioniz Calcium Natan (1.12-1.32) mmol/l Magnesium (1.7-2.4) mg/dl Total Bilirubin (0.2-1.0) mg/dl AST (13-39) U/L ALT (7-52) U/L Alkaline Phosphatase (34-104) U/L Troponin I High Sens 13124.7 H* D (0-20) pg/ml Total Protein (6.0-8.3) gm/dl Albumin (3.4-5.0) gm/dl Globulin (2.5-4.0) gm/dl Albumin/Globulin Ratio (0.9-2) Diagnostic Findings Chest X-Ray 08/05/24 14:13 REASON FOR EXAM: The patient is presenting with a history of chest pain, heart regular. HISTORY: Chest pain EXAM: Chest x-ray Previous: None FINDINGS: Cardiac size is normal. No definite acute infiltrate, collapse or edema is seen. Mildly increased interstitial markings are seen at both lung bases of uncertain chronicity. IMPRESSION: Increased interstitial marking of both lung bases of uncertain chronicity. If indicated by clinical presentation, these would be better evaluated with high resolution CT scan. Otherwise negative for acute disease at this time. Electronically signed by Enrique Martinez 08-05-2024 2:53 PM Medications Administered none given at the time of my evaluation Supervising Physician Co-Signing Physician Notes I have seen and discussed the case with the collaborating advanced practitioner. I agree with the above H&P. I have reviewed and confirmed the patients medical history, the findings on physical examination, and the patients diagnosis and treatment plan with Terrie VIERA and agree with the information documented. In sort, Mr. Mcginnis presented to ED with chest pain and noted to have STEMI. Exam notable for anxious gentleman, RRR, CTAB. EKG with V1, V2, V3, elevations with reciprocal depressions in III III and AVF. Patient underwent LHC with s/p successful PCI of small proximal LAD with single drug-eluting stent. loaded with Brilinta. Patient to be loaded with plavix in am 300mg then to continue 75 mg daily. Monitor in pcu. Patient more comfortable with male nursing. Reports of hernia and urinary incontinence from /daughter, however patient with reservations to share--consider broaching topic as comfort allows.Encourage close pcp follow up. Rest of plan as above I spent a total of 15 minutes coordinating, documenting, and providing care for this patient excluding time spent in the performance of separately billed services. All of the aforementioned completed outside of collaborating with the assigned advanced practitioner for a full treatment plan. I have reviewed the advanced practitioner's documentation, and I agree with, and take responsibility for the plan of care (1) STEMI (ST elevation myocardial infarction) Involved coronary artery: LAD coronary artery Qualified Code(s): I21.02 - ST elevation (STEMI) myocardial infarction involving left anterior descending coronary artery (2) Type 2 diabetes mellitus Diabetes mellitus complication status: without complication Diabetes mellitus intermodal truck driver insulin use: without intermodal truck driver use Qualified Code(s): E11.9 - Type 2 diabetes mellitus without complications (4) GERD (gastroesophageal reflux disease) Esophagitis presence: without esophagitis Qualified Code(s): K21.9 - Gastro- esophageal reflux disease without esophagitis
--- NOTE | 2024-08-05 14:54 | XRay Report ---
REASON FOR EXAM: The patient is presenting with a history of chest pain, heart regular. HISTORY: Chest pain EXAM: Chest x-ray Previous: None FINDINGS: Cardiac size is normal. No definite acute infiltrate, collapse or edema is seen. Mildly increased interstitial markings are seen at both lung bases of uncertain chronicity. IMPRESSION: Increased interstitial marking of both lung bases of uncertain chronicity. If indicated by clinical presentation, these would be better evaluated with high resolution CT scan. Otherwise negative for acute disease at this time. Electronically signed by Enrique Martinez 08-05-2024 2:53 PM
[2024-08-05 14:59] LABS: Albumin Globulin Ratio 1.5 (0.9-2); Albumin Level 4.6 gm/dl (3.4-5.0); BUN Creatinine Ratio 11.2 (10-20); Bilirubin,Total 0.7 mg/dl (0.2-1.0); Calcium 10.4 mg/dl (8.6-10.3); Globulin 3.1 gm/dl (2.5-4.0); Magnesium 1.8 mg/dl (1.7-2.4); Potassium 4.1 mmol/L (3.5-5.1); Total Protein 7.7 gm/dl (6.0-8.3)
--- NOTE | 2024-08-05 15:06 | Pre Anesthesia Assessment ---
Date of Service August 05, 2024 Pre Sedation Assessment Vital Signs Temp Pulse Pulse Resp BP BP Pulse Ox 08/05/24 14:42 98 H 24 187/114 H 96 08/05/24 14:33 100 H 16 177/116 H 95 08/05/24 14:30 70 08/05/24 14:24 82 22 180/85 H 93 08/05/24 14:13 103 H 18 95 08/05/24 14:13 101 H 18 182/112 H 95 08/05/24 14:13 95 08/05/24 14:10 98.1 F 90 22 162/100 H 93 O2 Del Method 08/05/24 14:42 Room Air 08/05/24 14:33 Room Air 08/05/24 14:30 08/05/24 14:24 Room Air 08/05/24 14:13 Room Air 08/05/24 14:13 Room Air 08/05/24 14:13 Room Air 08/05/24 14:10 Room Air Cardiovascular RRR, no murmur, no edema Respiratory + respiratory effort normal Pre-Sedation Airway Assessment Smoking Status: Current every day smoker Thyromental Distance: > or= 3.5 Finger Breadths Oral Cavity: + Dental Abnormalities Mallampati Class: III ASA: ASA4 Procedure Planning Contraindications for Sedation: none Current Medications Reviewed: Yes Notes The planned sedation has been discussed with the patient. Informed Consent was obtained. I have identified the patient, determined the appropriateness of sedation and have assessed the patient immediately prior to the procedure. All medicine(s) and interventions are by my order.
--- NOTE | 2024-08-05 15:11 | Cardiology Consultation ---
Date of Consultation August 05, 2024 Assessment & Plan (1) STEMI (ST elevation myocardial infarction): Plan Presentation consistent with anterior STEMI and recommend proceeding with emergent cardiac catheterization and likely primary PCI. No apparent contraindications to procedure. Discussed risks, benefits, alternatives of procedure with patient and they are willing to proceed. Given IV heparin and ticagrelor 180 mg in geophysical laboratory chief. Further recommendations pending findings of coronary angiography. History of Present Illness History of Present Illness 83-year-old man here with acute chest pain and ECG concerning for acute CT. Patient seen emergently in the ED after heart alert activated on arrival. No significant prior cardiac history. Was hospitalized previously 02/2024 with chest pain in the setting of pneumonia/uncontrolled hypertension. Echo at that time showed borderline LVH, EF 60%, no valve disease. Other cardiac risk factors include type 2 diabetes on oral therapy, history of tobacco use and family history of CAD (father had stents, bypass). Chest pain began again this morning while was out working in the yard picking up sticks. Gradually increased and associated with right arm pain, dizziness, nausea. Has not had similar pain in the past. Minimal residual chest pain on arrival. Hypertensive but electrically stable. EKG showed sinus rhythm with subtle anterior ST elevations and inferior ST depressions, Allergies Allergy/AdvReac Type Severity Reaction Status Date / Time Penicillins Allergy Mild Verified 08/05/24 15:03 penicillamine Allergy Unknown Unknown - Unverified 08/05/24 15:03 On file w/ [facility] Home Medications Medication Instructions Recorded Confirmed Type metformin 500 mg tablet,extended 500 mg PO DAILY 02/23/24 08/05/24 History release 24 hr omeprazole 40 mg capsule,delayed 40 mg PO DAILY 02/23/24 08/05/24 History release aspirin 81 mg tablet,delayed 81 mg PO DAILY 08/05/24 08/05/24 History release losartan 100 mg tablet 100 mg PO DAILY 08/05/24 08/05/24 History Patient History Medical History GERD (gastroesophageal reflux disease) Type 2 diabetes mellitus Essential hypertension Family History Other Heart disease Social History Smoking Status: Current every day smoker Tobacco Type: Pipe Second Hand Exposure: No; Do You Dip or Chew Tobacco: No; Tobacco Cessation Education Requested by Patient: No Hx Alcohol Use: No Hx Substance Use: No Preferred Language: Eritrean Communication Ability: Effective Communication Ability Comment: hard of hearing Senior Auditor Required: No Beliefs That Will Affect Care: None Current Living Situation: Spouse Other Information That Helps Us Care for You: No Feels Safe at Home: Yes Safety Concerns: Feels Safe At This Time Assistive Devices: Glasses Review of Systems Review of Systems: Not obtained in the setting of emergent situation Physical Exam Physical Exam: General: Uncomfortable, anxious HEENT: Sclerae anicteric Lungs: Clear anteriorly Cardiac: Regular rate and rhythm, no murmurs. Vascular: 2+ radial bilaterally Abdomen: Soft, nontender Extremities: Well perfused, no peripheral edema Neuro: Nonfocal Psych: Alert orient x3, normal affect and mood Results & Data Vital Signs (Past 12 Hours) Vital Signs Temp Pulse Pulse Resp BP BP Pulse Ox 08/05/24 14:42 98 H 24 187/114 H 96 08/05/24 14:33 100 H 16 177/116 H 95 08/05/24 14:30 70 08/05/24 14:24 82 22 180/85 H 93 08/05/24 14:13 103 H 18 95 08/05/24 14:13 101 H 18 182/112 H 95 08/05/24 14:13 95 08/05/24 14:10 98.1 F 90 22 162/100 H 93 O2 Del Method 08/05/24 14:42 Room Air 08/05/24 14:33 Room Air 08/05/24 14:30 08/05/24 14:24 Room Air 08/05/24 14:13 Room Air 08/05/24 14:13 Room Air 08/05/24 14:13 Room Air 08/05/24 14:10 Room Air PG Care Time/CCT Total # of Minutes Spent Total Time Spent with Patient: Total time spent is greater than 50% in coordination of care (as documented) at patient's floor/unit and/or counseling patient: Coding Level of Care Code 71840 ER DEPT VISIT MOD LVL [address] elevation myocardial infarction involving left anterior descending (LAD) coronary artery I21.02 Involved coronary artery: LAD coronary artery (1) STEMI (ST elevation myocardial infarction) Involved coronary artery: LAD coronary artery Qualified Code(s): I21.02 - ST elevation (STEMI) myocardial infarction involving left anterior descending coronary artery
--- NOTE | 2024-08-05 15:12 | Emergency Department Note ---
ED Provider Note CHIEF COMPLAINT: Chest pain HISTORY OF PRESENT ILLNESS: This 83-year-old male patient past medical history of diabetes, hypertension, GERD presents to the emergency department with complaints of chest pressure. Patient's daughter at the bedside states he has been complaining of pain intermittently for the last several days. Today he began to feel dizzy and the pain was radiating to the left shoulder. He states the pain has subsided a bit at this point, but remains noticeable. He denies radiation to the jaw or arm. He is not having significant shortness of breath or nausea. patient did receive aspirin and nitroglycerin prior to arrival. REVIEW OF SYSTEMS: A review of systems was performed with positives and pertinent negatives listed in the history of present illness. 10 systems were reviewed and are otherwise negative. ALLERGIES: see below MEDICATIONS: see below PMH: see below SOCIAL HISTORY: see below DDx: acute coronary syndrome, PE, congestive heart failure, aortic injury, pneumonia, pneumothorax among others. PHYSICAL EXAM: Vital signs reviewed. General: Well-appearing 83-year-old male, in no significant distress. HEENT: No scleral icterus, PERRLA, neck supple. moist mucous membranes Cardiovascular: Regular rate and rhythm, no extra sounds. Pulmonary: Clear to auscultation bilaterally, normal work of breathing. Abdomen: Soft, nontender, nondistended, positive bowel sounds. Musculoskeletal: Atraumatic, no peripheral edema. Neurologic: Patient awake alert and oriented x 3, speech is clear Skin: Warm, dry, no rash EMERGENCY DEPARTMENT COURSE/MDM: [] MONITORING: An order for cardiac monitoring was placed and the patient is noted to be in a sinus tachycardia at 101 bpm. RADIOLOGY: chest x-ray to my interpretation reveals no evidence of focal lung consolidation. EKG: To my interpretation reveals a sinus rhythm at 87 bpm with PACs. Anterior ST elevation with reciprocal changes. QTc of 425 DISPOSITION: Team Manager I have personally spent greater than 32 minutes of critical care time in the direct management of this patient. This includes bedside care, interpretation of diagnostic studies, and testing, discussion with consultants, patient, and family members, and other required patient management activities. This 32 minutes is in excess of all separately billable procedures. Past Med/Surg History Problem List STEMI (ST elevation myocardial infarction) Medical History GERD (gastroesophageal reflux disease) Type 2 diabetes mellitus Essential hypertension Family History Other Heart disease Social History Smoking Status: Current every day smoker Tobacco Type: Pipe Second Hand Exposure: No; Do You Dip or Chew Tobacco: No; Tobacco Cessation Education Requested by Patient: No Hx Alcohol Use: No Hx Substance Use: No Preferred Language: Lao Communication Ability: Effective Communication Ability Comment: hard of hearing Cash Posting Representative Required: No Beliefs That Will Affect Care: None Current Living Situation: Spouse Other Information That Helps Us Care for You: No Feels Safe at Home: Yes Safety Concerns: Feels Safe At This Time Assistive Devices: Glasses Allergies Allergies Allergy/AdvReac Type Severity Reaction Status Date / Time Penicillins Allergy Mild Verified 08/05/24 15:03 penicillamine Allergy Unknown Unknown - Unverified 08/05/24 15:03 On file w/ [facility] Home Meds Home Medications Medication Instructions Recorded Confirmed metformin 500 mg tablet,extended 500 mg PO DAILY 02/23/24 08/05/24 release 24 hr omeprazole 40 mg capsule,delayed 40 mg PO DAILY 02/23/24 08/05/24 release aspirin 81 mg tablet,delayed 81 mg PO DAILY 08/05/24 08/05/24 release losartan 100 mg tablet 100 mg PO DAILY 08/05/24 08/05/24 Results & Data (ED) Vital Signs Vital Signs - 24 hr 08/05/24 14:10 08/05/24 14:13 08/05/24 14:13 Temperature 36.7 C Temperature Source Skin Pulse Rate 90 Pulse Rate [Apical] 101 H Pulse Rate from SpO2 Sensor Respiratory Rate 22 18 Respiratory Effort / Characteristics Non-Labored Spontaneous Non-Labored Spontaneous Respiratory Depth Normal Normal Respiratory Pattern Regular Regular Blood Pressure 162/100 H Blood Pressure [Right Arm] 182/112 H Blood Pressure Mean 120 Blood Pressure Mean [Right Arm] 135 Blood Pressure Position [Right Arm] Sitting Pulse Oximetry 93 95 95 Oxygen Delivery Method Room Air Room Air Room Air Sepsis Recent Fever Within 48 Hours No Sepsis New/Unexplained Change in Mental Status N/A Sepsis Action Taken by Nursing No Action Required 08/05/24 14:13 08/05/24 14:24 08/05/24 14:30 Temperature Temperature Source Pulse Rate 103 H 82 70 Pulse Rate [Apical] Pulse Rate from SpO2 Sensor 91 H Respiratory Rate 18 22 Respiratory Effort / Characteristics Respiratory Depth Respiratory Pattern Blood Pressure 180/85 H Blood Pressure [Right Arm] Blood Pressure Mean 116 Blood Pressure Mean [Right Arm] Blood Pressure Position [Right Arm] Pulse Oximetry 95 93 Oxygen Delivery Method Room Air Room Air Sepsis Recent Fever Within 48 Hours Sepsis New/Unexplained Change in Mental Status Sepsis Action Taken by Nursing 08/05/24 14:33 08/05/24 14:42 08/05/24 16:00 Temperature 36.3 C L Temperature Source Oral Pulse Rate 100 H 98 H Pulse Rate [Apical] 89 Pulse Rate from SpO2 Sensor 98 H Respiratory Rate 16 24 16 Respiratory Effort / Characteristics Non-Labored Spontaneous Respiratory Depth Normal Respiratory Pattern Regular Blood Pressure 177/116 H 187/114 H Blood Pressure [Right Arm] 157/86 H Blood Pressure Mean 136 138 Blood Pressure Mean [Right Arm] 109 Blood Pressure Position [Right Arm] Lying Pulse Oximetry 95 96 94 Oxygen Delivery Method Room Air Room Air Room Air Sepsis Recent Fever Within 48 Hours Sepsis New/Unexplained Change in Mental Status Sepsis Action Taken by Nursing 08/05/24 16:00 Temperature Temperature Source Pulse Rate 84 Pulse Rate [Apical] Pulse Rate from SpO2 Sensor Respiratory Rate Respiratory Effort / Characteristics Respiratory Depth Respiratory Pattern Blood Pressure Blood Pressure [Right Arm] Blood Pressure Mean Blood Pressure Mean [Right Arm] Blood Pressure Position [Right Arm] Pulse Oximetry Oxygen Delivery Method Sepsis Recent Fever Within 48 Hours Sepsis New/Unexplained Change in Mental Status Sepsis Action Taken by Skilled Nursing Medications Current Medication List: was personally reviewed by me Laboratory Data Attestation: I reviewed the patient's lab results. 08/05/24 14:20 08/05/24 14:20 Lab Results 08/05/24 08/05/24 08/05/24 Range/Units 14:20 14:31 15:34 WBC 9.37 (4.8-10.8) K/ul RBC 5.80 (4.70-6.10) M/uL Hgb 17.1 (14.0-18.0) g/dl POC Hgb 17.3 (14.0-18.0) g/dl Hct 51.1 (42.0-52.0) % POC Hct 51 (42-52) % MCV 88.1 (80.0-100.0) fL MCH 29.5 (25.0-34.0) pg MCHC 33.5 (32.0-36.0) g/dL RDW Std Deviation 41.7 (36.4-46.3) fL RDW Coeff of Jose 13.0 (11.5-14.5) % Plt Count 300 (130-400) K/uL MPV 10.7 (9.4-12.4) fL Immature Gran % (Auto) 0.4 % Neut % (Auto) 57.2 % Lymph % (Auto) 32.1 % [place] % (Auto) 6.3 % Eos % (Auto) 3.0 % Baso % (Auto) 1.0 % Neut # (Auto) 5.36 (1.40-6.50) K/uL Lymph # (Auto) 3.01 (1.20-3.40) K/uL [place] # (Auto) 0.59 (0.11-0.59) K/uL Eos # (Auto) 0.28 (0.00-0.50) K/uL Baso # (Auto) 0.09 (0.00-0.20) K/uL Immature Gran # (Auto) 0.04 (0.01-0.20) K/uL PT 10.5 (9.0-12.0) Seconds INR 1.0 (0.9-1.1) APTT 24 (21-31) Seconds PTT Ratio 0.9 Activ Coag Time Kaolin 360 H (94-140) SECONDS POC Sodium 139 (135-144) mmol/L Sodium 138 (136-145) mmol/L POC Potassium 4.0 (3.3-5.0) mmol/L Potassium 4.1 (3.5-5.1) mmol/L POC Chloride 102 (101-112) mmol/L Chloride 103 (98-107) mmol/L Carbon Dioxide 27 (21-32) mmol/L POC Total CO2 24 (24-31) mmol/L Anion Gap 8 (3-11) POC Anion Gap 18.0 (16-25) mmol/L POC BUN 16 (7-18) mg/dl BUN 15 (6-23) mg/dl Creatinine 1.34 (0.6-1.4) mg/dl POC Creatinine 1.4 H (0.6-1.3) mg/dl Est Cr Clr Drug Dosing 46.0 ml/min eGFR 53.22 BUN/Creatinine Ratio 11.2 (10-20) Glucose 162 H (70-99(Fasting)) mg/dl POC Glucose (other) 156 H (70-99) mg/dl Calcium 10.4 H (8.6-10.3) mg/dl POC Ioniz Calcium Natan 1.24 (1.12-1.32) mmol/l Magnesium 1.8 (1.7-2.4) mg/dl Total Bilirubin 0.7 (0.2-1.0) mg/dl AST 19 (13-39) U/L ALT 19 (7-52) U/L Alkaline Phosphatase 71 (34-104) U/L Troponin I High Sens 66.1 H* (0-20) pg/ml Total Protein 7.7 (6.0-8.3) gm/dl Albumin 4.6 (3.4-5.0) gm/dl Globulin 3.1 (2.5-4.0) gm/dl Albumin/Globulin Ratio 1.5 (0.9-2) Administered Medications Nitroglycerin (Nitroglycerin Sl 0.4 Mg/Tab Tab) 0.4 mg SL Q5M PRN PRN Reason: Chest Pain Stop: 09/04/24 16:08 Last Admin: 08/05/24 18:37 Dose: 0.4 mg Documented By: SANDRA Discontinued Medications Aspirin (Aspirin Chew 324 Mg) 243 mg PO NOW STA Stop: 08/05/24 14:23 Last Admin: 08/05/24 14:31 Dose: 243 mg Documented By: ELIEZER Fentanyl Citrate (Fentanyl Citrate Pf 100 Mcg/2 Ml Vial) Confirm Administered Dose 100 mcg .ROUTE .STJamgle-MED ONE Stop: 08/05/24 14:54 Last Increment: 08/05/24 15:48 Dose: 75 mcg Documented By: MARGRET Heparin Sodium (Porcine) (Heparin (Porcine) 1000 Unit/Ml 10 Ml (Team Manager Use Only)) Confirm Administered Dose 10,000 units .ROUTE .STK-MED ONE Stop: 08/05/24 14:54 Last Admin: 08/05/24 15:49 Dose: 9,000 units Documented By: MARGRET Heparin Sodium/Sodium Chloride (Heparin In Nss Infusion 1000 Unit/500 Ml (2 U/Ml) Bag) Confirm Administered Dose 3,000 units IV .STK-MED ONE Stop: 08/05/24 14:54 Last Admin: 08/05/24 15:22 Dose: 3,000 units Documented By: REYNALDO Iodixanol (Iodixanol (Visipaque) 320 Mg/Ml 100ml) Confirm Administered Dose 1 ml IV .STK-MED ONE Stop: 08/05/24 14:55 Last Admin: 08/05/24 15:25 Dose: Not Given Documented By: MARGRET Ioversol (Optiray 350) Confirm Administered Dose 1 ml .ROUTE .STK-MED ONE Stop: 08/05/24 14:55 Last Admin: 08/05/24 15:49 Dose: 110 ml Documented By: REYNALDO Lorazepam (Lorazepam 2 Mg/1 Ml Vial) 1 mg IV NOW STA Stop: 08/05/24 14:31 Last Admin: 08/05/24 14:43 Dose: 1 mg Documented By: ELIEZER Midazolam HCl (Midazolam Hcl 1 Mg/Ml 2ml Vial) Confirm Administered Dose 2 mg .ROUTE .ST-MED ONE Stop: 08/05/24 14:54 Last Admin: 08/05/24 15:49 Dose: 2 mg Documented By: MARGRET Nicardipine HCl (Nicardipine Hcl Inj 2.5 Mg/Ml 10 Ml Amp) Confirm Administered Dose 25 mg .ROUTE .ST-MED ONE Stop: 08/05/24 14:54 Last Admin: 08/05/24 15:23 Dose: 25 mg Documented By: REYNALDO Nitroglycerin/Dextrose (Nitroglycerin/D5w 100mcg/Ml 20ml Syr) Confirm Administered Dose 2,000 mcg .ROUTE .ST-MED ONE Stop: 08/05/24 14:54 Last Admin: 08/05/24 15:23 Dose: 2,000 mcg Documented By: REYNALDO Ticagrelor (Ticagrelor 90 Mg Tab) Confirm Administered Dose 180 mg .ROUTE .STK- MED ONE Stop: 08/05/24 15:08 Last Admin: 08/05/24 15:25 Dose: 180 mg Documented By: MARGRET Imaging Data Radiologist's Impression: Chest X-Ray 08/05/24 14:13 REASON FOR EXAM: The patient is presenting with a history of chest pain, heart regular. HISTORY: Chest pain EXAM: Chest x-ray Previous: None FINDINGS: Cardiac size is normal. No definite acute infiltrate, collapse or edema is seen. Mildly increased interstitial markings are seen at both lung bases of uncertain chronicity. IMPRESSION: Increased interstitial marking of both lung bases of uncertain chronicity. If indicated by clinical presentation, these would be better evaluated with high resolution CT scan. Otherwise negative for acute disease at this time. Electronically signed by Enrique Martinez 08-05-2024 2:53 PM Discharge Plan Visit Data Chief Complaint: Chest Pain Stated Complaint: CHEST SORE, ABD PAIN ED Provider: Nafisa Chaves Discharge Instructions Interventions: ED Discharge Assessment Last Done: 08/05/24 15:03
[2024-08-05 15:13] LABS: Troponin I High Sensitivity 66.1 pg/ml (0-20)
[2024-08-05 15:18] LABS: Partial Thromboplastin Ratio 0.9; Partial Thromboplastin Time 24 Seconds (21-31); Prothrombin Time 10.5 Seconds (9.0-12.0)
[2024-08-05] MEDS: NITROGLYCERIN/D5W 100MCG/ML 20ML SYR ONE (15:23)
[2024-08-05] MEDS: niCARdipine HCL INJ 2.5 MG/ML 10 ML AMP ONE (15:23)
[2024-08-05] MEDS: TICAGRELOR 90 MG TAB ONE (15:25)
[2024-08-05] MEDS: IODIXANOL (VISIPAQUE) 320 MG/ML 100ML IV ONE (15:25)
[2024-08-05] MEDS: fentaNYL citrate PF 100 MCG/2 ML VIAL ONE (15:48)
[2024-08-05] MEDS: MIDAZOLAM HCL 1 MG/ML 2ML VIAL ONE (15:49)
[2024-08-05] MEDS: HEPARIN (PORCINE) 1000 UNIT/ML 10 ML (CATH LAB USE ONLY) ONE (15:49)
[2024-08-05] MEDS: OPTIRAY 350 ONE (15:49)
--- NOTE | 2024-08-05 15:57 | Post Anesthesia Assessment ---
Date of Service August 05, 2024 Post Sedation Assessment Vital Signs Temp Pulse Pulse Resp BP BP Pulse Ox 08/05/24 14:42 98 H 24 187/114 H 96 08/05/24 14:33 100 H 16 177/116 H 95 08/05/24 14:30 70 08/05/24 14:24 82 22 180/85 H 93 08/05/24 14:13 103 H 18 95 08/05/24 14:13 101 H 18 182/112 H 95 08/05/24 14:13 95 08/05/24 14:10 98.1 F 90 22 162/100 H 93 O2 Del Method 08/05/24 14:42 Room Air 08/05/24 14:33 Room Air 08/05/24 14:30 08/05/24 14:24 Room Air 08/05/24 14:13 Room Air 08/05/24 14:13 Room Air 08/05/24 14:13 Room Air 08/05/24 14:10 Room Air Recovery Score Activity: Moves 4 extremities Respiration: Deep Breath/Cough Circulation: +/-20% PreAnes Value Consciousness: Fully Awake Oxygen Saturation: O2 needed for >90% Discharge Sedation Level of Care: Fast Track Phase II Post Sedation Plan On clinical assessment, the patient appears to have tolerated the sedation without complications. Patient is recovering as anticipated. Patient will continue to be monitored by nursing and may be discharged when sedation discharge criteria are met per below protocol. Upon Completions of procedure up to 15 minutes continue every 5 minute vital signs and the P.A.R. score; then discharge to a Phase I or Fast Track to Phase II per the following guidelines: * Discharge Patient to appropriate Phase II area if PAR is 8 or greater or return to pre- procedure baseline. The post - procedure orders will be as directed. * If PAR score is less than 8 or not return to pre-procedure baseline then patie nt will follow Phase I monitoring till PAR is reached for Phase II. The Phase I may be done in procedure room or may call to secure a Phase I area. * If naloxone or flumazenil are used for reversal, hold in Phase I for continued monitoring from when last reversal dose was given for a minimum of 60 minutes or longer pending the nurse and/or physician discretion of patient condition before discharge to Phase II. Please call the Sedation Physician to re-evaluate and complete post-note for discharge to Phase II area. Do NOT discharge from procedure sedation or Phase 1 until post- sedation ev aluation note is complete by procedure /sedation MD Sedation Discharge Instructions to be given to the patient at discharge to home.
--- NOTE | 2024-08-05 16:00 | Post Operative Brief Note ---
Cardiology Brief Post Op Date of Surgery August 05, 2024 Pre & Post Diagnosis Acute CO Procedure Left heart catheter/coronary angiography and PCI Head Custodian Wally Wheeler MD General Repairer Leobardo Estimated Blood Loss 15 Findings Consistent with Post-Op Diagnosis 100% proximal small LAD. Large first diagonal essentially functions as LAD and without significant disease. 40-50% earlymid circumflex Nondominant RCA without significant disease Borderline LVEDP (21) Successful PCI of small proximal LAD with single drug-eluting stent (2.5 x 18 mm Wilber). Anesthesia Type RN Sedation Complications none Disposition Accompanied Patient To Recovery: No Disposition: PCU
[2024-08-05] MEDS ORDERED: ACETAMINOPHEN 325 MG TAB PO PRN (16:09)
[2024-08-05] MEDS ORDERED: GLUCAGON FOR INJ 1 MG VIAL SQ PRN (18:27)
[2024-08-05] MEDS ORDERED: CARBOHYDRATES FOR HYPOGLYCEMIA PO PRN (18:27)
[2024-08-05] MEDS ORDERED: DEXTROSE 50% 50 ML SYRINGE IV PRN (18:27)
[2024-08-05] MEDS ORDERED: GLUCOSE 40% GEL 15 GM TUBE PO PRN (18:27)
[2024-08-05] MEDS ORDERED: GLUCOSE 10 TAB/TUBE PO PRN (18:27)
[2024-08-05] MEDS: NITROGLYCERIN SL 0.4 MG/TAB TAB SL PRN (18:37)
[2024-08-05] MEDS: INSULIN ASPART PER UNIT CHARGE SC SCH (20:22)
[2024-08-05] MEDS: METOPROLOL TARTRATE 25 MG TAB PO SCH (20:40)
[2024-08-05] MEDS: LOSARTAN POTASSIUM 25 MG TAB PO SCH (20:40)
[2024-08-05] MEDS: ACETAMINOPHEN 325 MG TAB PO PRN (23:55)
--- NOTE | 2024-08-06 00:09 | Cardiac Catheterization ---
[facility] Data: Skid Adzer Cardiac Status Clinical evaluation leading to the procedure CAD Presenation: STEMI Anginal Classification: CCS IV Diagnostic Physicians Name: Wally Wheeler MD Closure Device Recommendations: PCI without planned CABG Cardiac Cath Procedure Full Procedure Date August 05, 2024 Pre-Procedure Diagnosis Pre-Procedure Diagnosis: STEMI AUC Score AUC Score: 9 Post-Procedure Diagnosis Post-Procedure Diagnosis: Severe CAD Procedure(s) Performed Procedure(s) Performed: Coronary Angiography, Left Heart Cath and Drug Eluting Stent Shell Sieve Operator Wally Wheeler MD Parking Enforcement Officer(s) Leobardo Estimated Blood Loss Estimated Blood Loss: 20 Medication(s) Medication(s): Fentanyl, Heparin, Lidocaine 1%, Nicardipine, Nitroglycerin and Versed Medication(s): Ticagrelor Summary of Findings Indication: STEMI/Heart Alert Access: 6 Fr slender right radial artery Catheters: EBU 3.5 guide, diagnostic JR4 Findings: LM -normal caliber, 20-30% ostial, and 20% calcified disease distally at bi furcation LAD -large caliber and bifurcates almost immediately into small interventricular groove LAD and large high D1 which wraps around apex. 100% acute proximal occlusion of small LAD. Large D1 without significant disease. Ramus, medium caliber, no significant disease Circumflex -dominant, large caliber, 50-60% proximal stenosis, distal luminal regularities, medium left PLB and small LPDA without significant disease. RCA -medium caliber, nondominant, mid segment luminal irregularities LVEDP -21 -- PCI -- Antithrombotic therapy: Heparin, ticagrelor Procedure: Left main cannulated with EBU 3.5 guide Dredge Pumper 50 wire passed across lesion into distal vessel Proximal LAD lesion predilated with 2.5 compliant balloon Dilated lesion stented with 2.5 x 18 mm Wilber drug-eluting stent Stent post-dilated with stent balloon IC vasodilators administered for spasm Post procedure HIRA 3 flow, stent well expanded with minimal residual stenosis and no apparent cardiac complications. Arterial Closure: TR band Summary: 1. Anterior STEMI/100% acute proximal occlusion of small LAD (just after takeoff of a large D1 which wraps around apex) 2. Non-culprit coronary artery disease -20-30% ostial left main 5060% proximal circumflex 3. Borderline intracardiac filling pressure 4. Successful PCI of small proximal LAD with single drug-eluting stent (2.5 x 18 mm Wilber). Recommendations: Admit to PCU for continued monitoring Loaded with ticagrelor 180 mg Continue dual-antiplatelet therapy for at least 1 year. Trend troponins until peak, Check Echo Continue home ARB and uptitrate beta-harika as BP allows High-dose statin Consult cardiac Rehab Medically manage mild to moderate nonculprit coronary artery disease. Hemodynamics Rest Ao:: 168/96/146 Final Ao: 135/70/105 LV: 141/21 Recommendations Recommendations: PCI without planned CABG Radiation Exposure (mGy) 1269 Contrast (mls) 110 Anesthesia Moderate [id number] Procedural Complication(s) None Disposition PCU I attest to the content of the Intraoperative Record and any orders documented therein. Any exceptions are noted below. [facility] Card Cath Procedure Codes Cardiac Catheterization Procedure 1: Cardiovascular Cath Procedures: 19745 Coronaries and LHC (+/-LV) Moderate Sedation Procedure 1: Sedation/Anesthesia: 46658 Mod Sedation by the same physician;Init15 Min Child Age 5 & Up Procedure 2: Sedation/Anesthesia: 06327 Mod Sedation by the same physician; Ea [id number] Minutes Stenting Procedure 1: Cardiovascular Stent Procedures: 65465 Perc transluminal revascularization of acute sub/total occl, aMI PG Care Time/CCT Total # of Minutes Spent Total Time Spent with Patient: Total time spent is greater than 50% in coordination of care (as documented) at patient's floor/unit and/or counseling patient:
[2024-08-06] MEDS: traMADol HCL 50 MG TABLET PO PRN (02:43)
[2024-08-06] MEDS: MAGNESIUM SULFATE / D5W 1 GM/100 ML BAG IV ONE (03:18)
[2024-08-06] MEDS: METOPROLOL TARTRATE 25 MG TAB PO STA (03:38)
[2024-08-06 04:10] LABS: Basophils # (auto) 0.08 K/uL (0.00-0.20); Basophils % (auto) 0.6 %; Eosinophils # (auto) 0.21 K/uL (0.00-0.50); Eosinophils % (auto) 1.4 %; Hematocrit (blood only) 46.2 % (42.0-52.0); Hemoglobin 16.1 g/dl (14.0-18.0); Immature Granulocytes # (auto) 0.04 K/uL (0.01-0.20); Immature Granulocytes % (auto) 0.3 %; Lymphocytes # (auto) 1.84 K/uL (1.20-3.40); Lymphocytes % (auto) 12.7 %; Mean Corpuscular Hemoglobin 29.7 pg (25.0-34.0); Mean Corpuscular Hgb Conc 34.8 g/dL (32.0-36.0); Mean Corpuscular Volume 85.2 fL (80.0-100.0); Mean Platelet Volume 10.1 fL (9.4-12.4); Monocytes # (auto) 1.16 K/uL (0.11-0.59); Neutrophils # (auto) 11.21 K/uL (1.40-6.50); Platelet Count 251 K/uL (130-400); RDW Coefficient of Variation 12.8 % (11.5-14.5); RDW Standard Deviation 39.4 fL (36.4-46.3); Red Blood Count 5.42 M/uL (4.70-6.10); White Blood Count 14.54 K/ul (4.8-10.8)
[2024-08-06 04:28] LABS: Chol HDL Ratio 5.4 (0-5); Creatinine Clr Calc Pharmacy 61.7 ml/min; Potassium 3.8 mmol/L (3.5-5.1)
[2024-08-06] MEDS: ONDANSETRON INJ 2 MG/ML 2 ML VIAL IV PRN (05:18)
[2024-08-06 07:43] LABS: Estimated Average Glucose 140 mg/dl; Hemoglobin A1C 6.5 % (4.5-5.6)
[2024-08-06] MEDS: PANTOprazole 40 MG TAB PO SCH (08:21)
[2024-08-06] MEDS: LOSARTAN POTASSIUM 50 MG TAB PO SCH (08:21)
[2024-08-06] MEDS: ATORVASTATIN 40 MG TAB PO SCH (08:22)
[2024-08-06] MEDS: ASPIRIN 81 MG ECTAB PO SCH (08:22)
--- NOTE | 2024-08-06 08:31 | Electrocardiogram Report ---
Test Reason : Blood Pressure : */* mmHG Vent. Rate : 87 BPM Atrial Rate : 87 BPM P-R Int : 166 ms QRS Dur : 86 ms QT Int : 354 ms P-R-T Axes : 77 79 48 degrees QTcB Int : 425 ms Sinus rhythm with Premature atrial complexes Acute Anterior infarct with reciprocal inferior changes Abnormal ECG When compared with ECG of 23-Feb-2024 00:23, Premature atrial complexes are now Present ST elevation now present in Anterior leads Confirmed by Enrique Phillips ([id number]) on 08/06/2024 8:31:12 AM Referred By: Confirmed By: Enrique Phillips
--- NOTE | 2024-08-06 09:09 | XCELERA ---
[id number] \\[id number]
[2024-08-06] MEDS: CLOPIDOGREL BISULFATE 300 MG TAB PO ONE (10:09)
--- NOTE | 2024-08-06 10:48 | Cardiology Progress Note ---
Date of Service August 06, 2024 Assessment & Plan (1) CAD (coronary artery disease): Plan: 07/2024 acute CO, 100% proximal small LAD post single ROSA Residual 25% ostial LMCA, 55% proximal LCx 2. Ischemic cardiomyopathyEF 45%, septal/anteroseptal and mid anterior hypokinesis 3. Hypertensionmoderate concentric LVH 4. Type 2 [id number] 6.5 5. DyslipidemiaLDL 109 6. Mild AI Chest pain-free this morning. Troponin has peaked. Blood pressure high post procedure, improving 1 episode of NSVT overnight, no significant ventricular ectopy this morning On exam no signs of heart failure or access site complications. Transition ticagrelor to clopidogrel today. Continue DAPT with aspirin/clopidogrel for at least 1 year Increase losartan to 50 mg twice daily Continue current metoprolol Start atorvastatin today Up walking later today If no additional significant ventricular ectopy and blood pressure well- controlled okay for discharge tomorrow morning. Will arrange follow-up with me in 2 weeks and will discuss cardiac rehab at at time Admission and Anticipated Discharge Date Admission Date: August 05, 2024 Subjective Denies any chest pain this morning. Does report some mild nausea but thinks due to eating more breakfast than he usually does. No shortness of breath. Only up to side of bed so far. Telemetry [id number] beat NSVT around 2:30 in the morning. Received additional metoprolol and magnesium Review of Systems Review of Systems: All systems reviewed & are unremarkable except as noted in HPI & below Physical Exam Physical Exam: General: Comfortable HEENT: Sclerae anicteric Lungs: Clear to auscultation bilaterally, no crackles or wheezes Cardiac: Regular rate and rhythm, no murmurs. Vascular: Right radial artery access site with no ecchymosis, hematoma. Distal pulse and sensation intact. Abdomen: Soft, nontender Extremities: Well perfused, no peripheral edema Neuro: Nonfocal Psych: Alert orient x3, normal affect and mood Results & Data Vital Signs (Past 12 Hours) Vital Signs Temp Pulse Pulse Resp BP BP Pulse Ox 08/06/24 10:28 97.9 F 69 143/83 H 93 08/06/24 07:58 97.3 F L 70 19 141/92 H 95 08/06/24 07:23 08/06/24 07:23 70 08/06/24 03:36 97.7 F 85 16 154/85 H 93 03/22/25 22:56 97.7 F 82 14 156/99 H 95 O2 Del Method 08/06/24 10:28 Room Air 08/06/24 07:58 Room Air 08/06/24 07:23 Room Air 08/06/24 07:23 08/06/24 03:36 Room Air 08/05/24 22:56 Room Air PG Care Time/CCT Total # of Minutes Spent Total Time Spent with Patient: Total time spent is greater than 50% in coordination of care (as documented) at patient's floor/unit and/or counseling patient: Coding Level of Care Code 21270 SUB INP/OBS CARE 3/50MIN Diagnoses CAD (coronary artery disease) I25.10
--- NOTE | 2024-08-06 12:26 | Electrocardiogram Report ---
Test Reason : Blood Pressure : */* mmHG Vent. Rate : 107 BPM Atrial Rate : 107 BPM P-R Int : 162 ms QRS Dur : 82 ms QT Int : 334 ms P-R-T Axes : 81 80 -83 degrees QTcB Int : 445 ms Sinus tachycardia with frequent , and consecutive Premature ventricular complexes Acute Anterior infarct ST depression in Inferior leads (reciprocal change) Abnormal ECG When compared with ECG of 05-Aug-2024 14:15, Premature ventricular complexes are now Present Premature atrial complexes are no longer Present ST more depressed Inferior leads Confirmed by Enrique Phillips ([id number]) on 08/06/2024 12:25:44 PM Referred By: REFERRED SELF Confirmed By: Enrique Phillips
--- NOTE | 2024-08-06 12:27 | Electrocardiogram Report ---
Test Reason : Blood Pressure : */* mmHG Vent. Rate : 89 BPM Atrial Rate : 89 BPM P-R Int : 182 ms QRS Dur : 82 ms QT Int : 358 ms P-R-T Axes : 72 61 67 degrees QTcB Int : 435 ms Normal sinus rhythm Minor ST elevation in Anteroseptal leads Abnormal ECG When compared with ECG of 05-Aug-2024 14:21, ST elevation in Anterior leads much less pronounced ST no longer depressed in Inferior leads Premature ventricular complexes no longer present Confirmed by Enrique Phillips ([id number]) on 08/06/2024 12:26:56 PM Referred By: REFERRED SELF Confirmed By: Enrique Phillips
--- NOTE | 2024-08-06 12:29 | Electrocardiogram Report ---
Test Reason : Blood Pressure : */* mmHG Vent. Rate : 71 BPM Atrial Rate : 71 BPM P-R Int : 180 ms QRS Dur : 84 ms QT Int : 404 ms P-R-T Axes : 70 84 59 degrees QTcB Int : 439 ms Normal sinus rhythm Minor ST elevation in Septal leads Borderline ECG When compared with ECG of 05-Aug-2024 18:21, Near total resolution of anterior ST elevation Confirmed by Enrique Phillips ([id number]) on 08/06/2024 12:29:06 PM Referred By: REFERRED SELF Confirmed By: Enrique Phillips
--- NOTE | 2024-08-06 17:02 | Hospitalist Progress Note ---
Date of Service August 06, 2024 Assessment & Plan (1) STEMI (ST elevation myocardial infarction): (2) Type 2 diabetes mellitus: (3) Essential hypertension: (4) GERD (gastroesophageal reflux disease): Plan per previous hospitalist notes with addendum: This is an 83 y/o male with HTN, DM2, GERD, and tobacco use who presents to the ED from home with chest discomfort. Initial EKG in the ED personally reviewed and showed NSR with subtle ST segment elevation in the anterior leads and ST depression in the inferior leads. Heart alert was called by ED and we were called for admission. At the time of my initial evaluation, labs and imaging were pending. Pt was extremely anxious about possible procedure and was initially refusing cardiac cath. However, after extensive discussion of his condition and possible treatments, pt was agreeable to discussing procedure with interventional cardiology and ultimately agreed to the procedure. #STEMI - Transferred to cardiac cath lab radiological technologist for possible intervention - spoke with fire protection specialist, Dr. Wheeler, after the procedure. Pt underwent successful PCI of small proximal LAD with single ROSA and tolerated procedure well. - Admit to PCU for observation post-procedure - Trend troponin though anticipate elevation due to STEMI, repeat EKG in AM and prn chest pain - Lipid panel, A1c in the AM - CBC, BMP in the AM - Loaded with heparin and Brilinta in the cath lab radiological technologist - will start clopidogrel tomorrow - Update ECHO - Continue aspirin daily - Added statin 08/06 (1) CAD (coronary artery disease): Plan: 07/2024 acute IA, 100% proximal small LAD post single ROSA Residual 25% ostial LMCA, 55% proximal LCx 2. Ischemic cardiomyopathyEF 45%, septal/anteroseptal and mid anterior hypokinesis continue ASA, Plavix x 1 year Lipitor 40mg daily Metoprolol 25mg BID Losartan 50mg po daily #Hypertension Losartan 50 mg BID #Type 2 Diabetes - Insulin sliding scale - Hold metformin - BSG ACHS - Diabetic diet - A1c as above #GERD - Due to addition of clopidogrel, will change PPI from omeprazole to pantoprazle and continue at d/c Code status: full code Pt's family also voice concerns that pt has possible inguinal hernias causing obstructive urinary symptoms with incontinence but pt has been refusing to allow anyone to look at these. Will need f/u at discharge with PCP to address. Disposition possible d/c home tomorrow Admission and Anticipated Discharge Date Admission Date: August 05, 2024 Subjective ff up for stemi, etc seen resting in bed, comfortable states he feels fine overall no chest pain, dyspnea, palpitations, dizziness no other symptoms Review of Systems Review of Systems: all noted and negative except for above Physical Exam Physical Exam: General- oriented x 3, not in distress, speaks in sentences with no effort or accessory muscle use Eyes- anicteric Neck- no JVD Lungs- clear breath sounds bilaterally no rales/wheezing Heart- normal rate, regular rhythm; no murmurs Abdomen- normal bowel sounds, nondistended, soft, no tenderness Extremities- no pretibial edema, no calf tenderness Neuro- alert, oriented x 3; no gross focal neurologic deficits Skin- warm & dry Results & Data Results & Data Vital Signs (Past 12 Hours) Vital Signs Temp Pulse Pulse Resp BP Pulse Ox O2 Del Method 08/06/24 14:46 36.4 C L 67 20 128/78 93 Room Air 08/06/24 13:54 68 08/06/24 10:28 36.6 C 69 143/83 H 93 Room Air 08/06/24 07:58 36.3 C L 70 19 141/92 H 95 Room Air 08/06/24 07:23 Room Air 08/06/24 07:23 70 all noted and reviewed including below (1) STEMI (ST elevation myocardial infarction) Involved coronary artery: LAD coronary artery Qualified Code(s): I21.02 - ST elevation (STEMI) myocardial infarction involving left anterior descending coronary artery (2) Type 2 diabetes mellitus Diabetes mellitus chcf insulin use: without terminal makeup operator use Diabetes mellitus complication status: without complication Qualified Code(s): E11.9 - Type 2 diabetes mellitus without complications (4) GERD (gastroesophageal reflux disease) Esophagitis presence: without esophagitis Qualified Code(s): K21.9 - Gastro- esophageal reflux disease without esophagitis
[2024-08-06] MEDS: METOPROLOL TARTRATE 25 MG TAB PO SCH (20:30)
[2024-08-07 08:01] VITALS: O2SAT 94
[2024-08-07] MEDS: CLOPIDOGREL BISULFATE 75 MG TAB PO SCH (08:25)
[2024-08-07 11:49] VITALS: RESP 16; TEMP 97.9
--- NOTE | 2024-08-07 11:59 | Cardiology Progress Note ---
Date of Service August 07, 2024 Assessment & Plan (1) CAD (coronary artery disease): Plan: 07/2024 acute VT, 100% proximal small LAD post single ROSA Residual 25% ostial LMCA, 55% proximal LCx 2. Ischemic cardiomyopathyEF 45%, septal/anteroseptal and mid anterior hypokinesis 3. Hypertensionmoderate concentric LVH 4. Type 2 [id number] 6.5 5. DyslipidemiaLDL 109 6. Mild AI Remains chest pain-free. Electrically stable on telemetry Blood pressure improved On exam no signs of heart failure or access site complications. From a cardiac standpoint okay with discharge today Home on DAPT with aspirin/clopidogrel for at least 1 year Home on prior losartan 100 mg daily Switch to Toprol-XL 50 mg daily Continue atorvastatin 40 mg Follow-up with me August 21 @ 3pm and will discuss cardiac rehab at that time Appreciate [facility] medicine care Admission and Anticipated Discharge Date Admission Date: August 05, 2024 Subjective Feeling well this morning. Denies any chest pain. No shortness of breath. Slept better last night. Telemetry reviewedno recurrent ventricular arrhythmia Review of Systems Review of Systems: All systems reviewed & are unremarkable except as noted in HPI & below Physical Exam Physical Exam: General: Comfortable HEENT: Sclerae anicteric Lungs: Clear to auscultation bilaterally, no crackles or wheezes Cardiac: Regular rate and rhythm, no murmurs. Vascular: Right radial artery access site with no ecchymosis, hematoma. Distal pulse and sensation intact. Abdomen: Soft, nontender Extremities: Well perfused, no peripheral edema Neuro: Nonfocal Psych: Alert orient x3, normal affect and mood Results & Data Vital Signs (Past 12 Hours) Vital Signs Temp Pulse Pulse Pulse Resp BP Pulse Ox 08/07/24 11:48 97.9 F 81 16 107/68 94 08/07/24 08:45 61 08/07/24 07:59 97.7 F 76 18 104/62 94 08/07/24 03:00 97.9 F 76 18 113/78 95 O2 Del Method 08/07/24 11:48 Room Air 08/07/24 08:45 08/07/24 07:59 Room Air 08/07/24 03:00 Room Air PG Care Time/CCT Total # of Minutes Spent Total Time Spent with Patient: Total time spent is greater than 50% in coordination of care (as documented) at patient's floor/unit and/or counseling patient: Coding Level of Care Code 92005 SUB INP/OBS CARE MIN Diagnoses CAD (coronary artery disease) I25.10
--- NOTE | 2024-08-07 12:01 | Discharge Summary ---
Discharge Summary Date of Service August 07, 2024 delayed entry date of service noted above Principal Dx & Hospital Course #1 = Principal Diagnosis (1) STEMI (ST elevation myocardial infarction): (2) Type 2 diabetes mellitus: (3) Essential hypertension: (4) GERD (gastroesophageal reflux disease): Plan per previous hospitalist notes with addendum: This is an 83 y/o male with HTN, DM2, GERD, and tobacco use who presents to the ED from home with chest discomfort. Initial EKG in the ED personally reviewed and showed NSR with subtle ST segment elevation in the anterior leads and ST depression in the inferior leads. Heart alert was called by ED and we were called for admission. At the time of my initial evaluation, labs and imaging were pending. Pt was extremely anxious about possible procedure and was initially refusing cardiac cath. However, after extensive discussion of his condition and possible treatments, pt was agreeable to discussing procedure with interventional cardiology and ultimately agreed to the procedure. #STEMI s/p PCI, Stent Ischemic Cardiomyopathy - Transferred to cardiac metallurgical laboratory assistant for possible intervention - spoke with elder assistant, Dr. Wheeler, after the procedure. Pt underwent successful PCI of small proximal LAD with single ROSA and tolerated procedure well. 08/06 (1) CAD (coronary artery disease): Plan: 07/2024 acute SC, 100% proximal small LAD post single ROSA Residual 25% ostial LMCA, 55% proximal LCx 2. Ischemic cardiomyopathyEF 45%, septal/anteroseptal and mid anterior hypokinesis per [facility] Dr. Maura Wheeler recommendations: Home on DAPT with aspirin/clopidogrel for at least 1 year Home on prior losartan 100 mg daily Switch to Toprol-XL 50 mg daily Continue atorvastatin 40 mg Follow-up with me August 21 @ 3pm and will discuss cardiac rehab at that time #Abnormal CXR Increased interstitial marking of both lung bases of uncertain chronicity. If indicated by clinical presentation, these would be better evaluated with high resolution CT scan. -- outpatient CT chest to further evaluate given patient's history of smoking #Hypertension Losartan 50 mg BID #Type 2 Diabetes a1c 6.5 continue usual medications -- repeat BMP on ff up with PCP as patient received IV contrast and is on Metformin #GERD - Due to addition of clopidogrel, will change PPI from omeprazole to pantoprazle and continue at d/c #Inguinal Hernia Pt's family also voice concerns that pt has possible inguinal hernias causing obstructive urinary symptoms with incontinence but pt has been refusing to allow anyone to look at these. -- CT abd last Feb Mediastinum: There is a small to moderate hiatal hernia. There is a small amount of distal esophageal fluid consistent with gastroesophageal reflux. -- Will need f/u at discharge with PCP to address. Disposition d/c home ff up with PCP in 1 week Notes For Next Care Provider -- repeat BMP on ff up with PCP as patient received IV contrast and is on Metformin -- #Abnormal CXR Increased interstitial marking of both lung bases of uncertain chronicity. If indicated by clinical presentation, these would be better evaluated with high resolution CT scan. -- outpatient CT chest to further evaluate given patient's history of smoking Medication Changes From Visit as per above Admission HPI Per Admitting Provider This is an 83 y/o male with HTN, DM2, GERD, and tobacco use who presents to the ED from home with chest discomfort. Pt reports several weeks to months of feeling poorly overall with decreased capacity to be active. Today, he was picking up sticks and branches in his yard when he had the gradual onset of chest "soreness" that seemed to radiate to both of his shoulders but more on the right. He had associated nausea, diaphoresis, and dizziness. The discomfort gradually worsened so his family convinced him to come to the ED for evaluation. In the ED, heart alert was called after initial EKG showed possible STEMI. His pain started to ease off in the ED but was present on my evaluation though improving. He also noted ongoing dizziness and mild nausea. No vomiting. He has noted some mild [place] at home over the last several weeks but denies dyspnea at present. He was admitted to [facility] in February 2024 with substernal chest discomfort, not relieved by nitro. Serial troponins were negative that admission with no acute EKG changes. ECHO showed borderline concentric LVH, normal LV wall motion, normal LV systolic function (EF 60-65%), no significant valvular disease. He was diagnosed with and treated for pneumonia. Pt reports he is usually fairly active. He smokes a pipe but does not inhale. He has a family history of CAD - father had cardiac stents, bypass surgery. Admission Exam Per Admitting Provider General: awake, alert, NAD but very anxious HEENT: no scleral icterus, moist oral mucosa Neck: supple, trachea midline Heart: RRR, No M/G/R Lungs: CTA bilaterally Abdomen: soft, +BS Extremities: no significant pedal edema, distal pulses intact and equal Skin: warm, dry, no cyanosis or jaundice Neurologic: Ox3, moving all extremities without focal deficits, no confusion or dysarthria Discharge Exam General- oriented x 3, not in distress, speaks in sentences with no effort or accessory muscle use Eyes- anicteric Neck- no JVD Lungs- clear breath sounds bilaterally, no rales/wheezes Heart- normal rate, regular rhythm; no murmurs Abdomen- normal bowel sounds, nondistended, soft, nontender Extremities- no pretibial edema, no calf tenderness Neuro- alert, oriented x 3; no gross focal neurologic deficits Skin- warm & dry Updated Medication List Medication Instructions Recorded Confirmed Type metformin 500 mg tablet,extended 500 mg PO DAILY 02/23/24 08/05/24 History release 24 hr aspirin 81 mg tablet,delayed 81 mg PO DAILY 08/05/24 08/05/24 History release atorvastatin 40 mg tablet 40 mg PO QAM 30 days #30 tabs 08/07/24 Rx clopidogrel 75 mg tablet 75 mg PO QAM 30 days #30 tabs 08/07/24 Rx losartan 50 mg tablet 50 mg PO BID 30 days #60 tabs 08/07/24 Rx metoprolol tartrate 25 mg tablet 25 mg PO BID 30 days #60 tabs 08/07/24 Rx pantoprazole 40 mg tablet,delayed 40 mg PO QAM 30 days #30 tabs 08/07/24 Rx release Hospital Stay Data Consultations 08/05/24 14:30 ED Decision to Admit Stat 08/05/24 16:09 Consult Cardiology Routine Procedures Performed Operation Date: 08/05/24 02:55 Actual Procedures p Cineradiography w/Routine Exam - Wally Wheeler MD p Aspiration/PCI w/ROSA for Stemi - Wally Wheeler MD Diagnostic Imagining Performed 08/05/24 14:56 CL Cath Imgs for PACS use only Stat Laboratory Results WBC 14.54 K/ul (4.8-10.8) H 08/06/24 03:53 RBC 5.42 M/uL (4.70-6.10) 08/06/24 03:53 Hgb 16.1 g/dl (14.0-18.0) 08/06/24 03:53 POC Hgb 17.3 g/dl (14.0-18.0) 08/05/24 14:31 Hct 46.2 % (42.0-52.0) 08/06/24 03:53 POC Hct 51 % (42-52) 08/05/24 14:31 MCV 85.2 fL (80.0-100.0) 08/06/24 03:53 MCH 29.7 pg (25.0-34.0) 08/06/24 03:53 MCHC 34.8 g/dL (32.0-36.0) 08/06/24 03:53 RDW Std Deviation 39.4 fL (36.4-46.3) 08/06/24 03:53 RDW Coeff of Jose 12.8 % (11.5-14.5) 08/06/24 03:53 Plt Count 251 K/uL (130-400) 08/06/24 03:53 MPV 10.1 fL (9.4-12.4) 08/06/24 03:53 Immature Gran % (Auto) 0.3 % 08/06/24 03:53 Neut % (Auto) 77.0 % 08/06/24 03:53 Lymph % (Auto) 12.7 % 08/06/24 03:53 Meagher % (Auto) 8.0 % 08/06/24 03:53 Eos % (Auto) 1.4 % 08/06/24 03:53 Baso % (Auto) 0.6 % 08/06/24 03:53 Neut # (Auto) 11.21 K/uL (1.40-6.50) H 08/06/24 03:53 Lymph # (Auto) 1.84 K/uL (1.20-3.40) 08/06/24 03:53 Meagher # (Auto) 1.16 K/uL (0.11-0.59) H 08/06/24 03:53 Eos # (Auto) 0.21 K/uL (0.00-0.50) 08/06/24 03:53 Baso # (Auto) 0.08 K/uL (0.00-0.20) 08/06/24 03:53 Immature Gran # (Auto) 0.04 K/uL (0.01-0.20) 08/06/24 03:53 PT 10.5 Seconds (9.0-12.0) 08/05/24 14:20 INR 1.0 (0.9-1.1) 08/05/24 14:20 APTT 24 Seconds (21-31) 08/05/24 14:20 PTT Ratio 0.9 08/05/24 14:20 Activ Coag Time Kaolin 360 SECONDS (94-140) H 08/05/24 15:34 POC Sodium 139 mmol/L (135-144) 08/05/24 14:31 Sodium 133 mmol/L (136-145) L 08/06/24 03:53 POC Potassium 4.0 mmol/L (3.3-5.0) 08/05/24 14:31 Potassium 3.8 mmol/L (3.5-5.1) 08/06/24 03:53 POC Chloride 102 mmol/L (101-112) 08/05/24 14:31 Chloride 101 mmol/L (98-107) 08/06/24 03:53 Carbon Dioxide 26 mmol/L (21-32) 08/06/24 03:53 POC Total CO2 24 mmol/L (24-31) 08/05/24 14:31 Anion Gap 6 (3-11) 08/06/24 03:53 POC Anion Gap 18.0 mmol/L (16-25) 08/05/24 14:31 POC BUN 16 mg/dl (7-18) 08/05/24 14:31 BUN 13 mg/dl (6-23) 08/06/24 03:53 Creatinine 1.00 mg/dl (0.6-1.4) D 08/06/24 03:53 POC Creatinine 1.4 mg/dl (0.6-1.3) H 08/05/24 14:31 Est Cr Clr Drug Dosing 61.7 ml/min 08/06/24 03:53 eGFR 75.61 08/06/24 03:53 BUN/Creatinine Ratio 13.0 (10-20) 08/06/24 03:53 Glucose 152 mg/dl (70-99(Fasting)) H 08/06/24 03:53 POC Glucose 123 mg/dl (70-99) H 08/07/24 11:29 POC Glucose (other) 156 mg/dl (70-99) H 08/05/24 14:31 Estimat Average Glucose 140 mg/dl 08/06/24 03:53 Hemoglobin A1c 6.5 % (4.5-5.6) H 08/06/24 03:53 Calcium 10.0 mg/dl (8.6-10.3) 08/06/24 03:53 POC Ioniz Calcium Natan 1.24 mmol/l (1.12-1.32) 08/05/24 14:31 Magnesium 1.8 mg/dl (1.7-2.4) 08/05/24 14:20 Total Bilirubin 0.7 mg/dl (0.2-1.0) 08/05/24 14:20 AST 19 U/L (13-39) 08/05/24 14:20 ALT 19 U/L (7-52) 08/05/24 14:20 Alkaline Phosphatase 71 U/L (34-104) 08/05/24 14:20 Troponin I High Sens 47644.1 pg/ml (0-20) H* 08/06/24 03:53 Total Protein 7.7 gm/dl (6.0-8.3) 08/05/24 14:20 Albumin 4.6 gm/dl (3.4-5.0) 08/05/24 14:20 Globulin 3.1 gm/dl (2.5-4.0) 08/05/24 14:20 Albumin/Globulin Ratio 1.5 (0.9-2) 08/05/24 14:20 Triglycerides 195 mg/dl (0-150) H 08/06/24 03:53 Cholesterol 182 mg/dl (0-200) 08/06/24 03:53 LDL Cholesterol, Calc 109 mg/dl 08/06/24 03:53 VLDL Cholesterol, Calc 39 mg/dl (0-30) H 08/06/24 03:53 HDL Cholesterol 34 mg/dl 08/06/24 03:53 Cholesterol/HDL Ratio 5.4 (0-5) H 08/06/24 03:53 Impressions Chest X-Ray 08/05/24 14:13 REASON FOR EXAM: The patient is presenting with a history of chest pain, heart regular. HISTORY: Chest pain EXAM: Chest x-ray Previous: None FINDINGS: Cardiac size is normal. No definite acute infiltrate, collapse or edema is seen. Mildly increased interstitial markings are seen at both lung bases of uncertain chronicity. IMPRESSION: Increased interstitial marking of both lung bases of uncertain chronicity. If indicated by clinical presentation, these would be better evaluated with high resolution CT scan. Otherwise negative for acute disease at this time. Electronically signed by Enrique Martinez 08-05-2024 2:53 PM Pending Results Patient Have Any Pending Studies at Discharge: No Discharge Instructions Given to Patient (Per Discharging Provider) PLEASE REFER TO YOUR NEW MEDICATION LIST AND FOLLOW INSTRUCTIONS CAREFULLY. YOUR NEW MEDICATIONS INCLUDE: Aspirin, Plavix-antiplatelets to prevent heart attack, occlusion of stent -You need to take aspirin and Plavix every single day for at least 1 year to prevent stent blockage. Metoprolol, losartan-for heart rate and blood pressure control Jeouwhhgxfnt-[id number] agent Omeprazole changed to pantoprazole PLEASE CALL YOUR PRIMARY CARE PHYSICIAN OR RETURN TO THE ER IF WITH WORSENING OF SYMPTOMS, INCLUDING Chest pain, shortness of breath, dizziness, palpitations, weakness, etc. FOLLOW UP WITH PRIMARY CARE PHYSICIAN OUTLINED ABOVE. Follow-up with fraternity house cook Dr. Wally Wheeler on August 21 at 3 PM. [address] [facility] [place] [id number] Total Time Total Time Spent Total Time Spent (In Minutes): 45 minutes
[2024-08-07 12:07] VITALS: BP 154/85; PULSE 76
--- NOTE | 2024-08-07 14:02 | Electrocardiogram Report ---
Test Reason : Blood Pressure : */* mmHG Vent. Rate : 94 BPM Atrial Rate : 94 BPM P-R Int : 184 ms QRS Dur : 82 ms QT Int : 338 ms P-R-T Axes : 69 62 69 degrees QTcB Int : 422 ms Normal sinus rhythm Normal ECG When compared with ECG of 05-Aug-2024 16:17, No significant change was found Confirmed by Nico Shannon ([id number]) on 08/07/2024 2:02:38 PM Referred By: REFERRED SELF Confirmed By: Nico Shannon
== END 2024-08-07 12:43 | disposition home or self-care (01) | DRG 322 ==
LOC: ED 14:02 → CC 15:03 → 2S 15:03 → SUATTDRO 16:06 → 2S 16:06
DX: I10 Essential (primary) hypertension; K21.9 Gastro-esophageal reflux disease without esophagitis; I25.10 Atherosclerotic heart disease of native coronary artery without angina pectoris; F17.290 Nicotine dependence, other tobacco product, uncomplicated; Z79.84 Long term (current) use of oral hypoglycemic drugs; I35.1 Nonrheumatic aortic (valve) insufficiency; I21.02 ST elevation (STEMI) myocardial infarction involving left anterior descending coronary artery; Z88.0 Allergy status to penicillin; I25.5 Ischemic cardiomyopathy; E78.5 Hyperlipidemia, unspecified; E11.9 Type 2 diabetes mellitus without complications; Z79.82 Long term (current) use of aspirin